=== PATIENT | male | born 1960 | race Caucasian/White ===

== ENCOUNTER 2017-10-26 09:08 | Day surgery (SDC) | payer BC ==
[2017-10-24 18:04] VITALS: BMI 28.0
[~2017-10-26 09:08] MED LIST: LACTATED RINGERS 1,000 ML IV SCH
[2017-10-26] MEDS ORDERED: LIDOCAINE 1% 20 ML VIAL (10MG/ML) FOR IV START INTRADERMA ONE (10:10)
[2017-10-26 10:15] VITALS: RESP 16; TEMP 97.5
[2017-10-26] MEDS ORDERED: PROPOFOL 10 MG/ML 20 ML VIAL IV ONE (10:45)
--- NOTE | 2017-10-26 11:19 | P.PCN ---
Date of Procedure: 10/26/17 Procedure(s) Performed: BRIEF HISTORY: Patient is a 57-year-old pleasant white male, scheduled for an elective colonoscopy as a part of screening for colon neoplasia. PROCEDURE PERFORMED: Colonoscopy with snare polypectomy PREOPERATIVE DIAGNOSIS: Screening for colon cancer. IV sedation per Anesthesia. PROCEDURE: After informed consent was obtained, the patient, was brought into the endoscopy unit. IV sedation was administered by Anesthesia under continuous monitoring. Digital rectal examination was normal. Initially the Olympus CF- 160 flexible video colonoscope was then inserted in the rectum, gradually advanced into the cecum without any difficulty. Careful examination was performed as the scope was gradually being withdrawn. Ileocecal valve and the appendiceal orifice were visualized and appeared normal. Prep was fair. Mucosa of the cecum, ascending colon, appeared normal. In the hepatic flexure there was a 5 m polyp removed by snare polypectomy. The transverse colon, descending colon, sigmoid colon, and rectum appeared normal. In the proximal rectum there were 2 polyps measuring 5 m in size both of which were removed by snare polypectomy. Scattered sigmoid diverticulosis Retroflexion was performed in the rectum and no lesions were seen. The patient tolerated the procedure well. IMPRESSION: 5 mm hepatic flexure polyp status post polypectomy 5 mm 2 rectal polyps status post polypectomy Scattered sigmoid diverticulosis RECOMMENDATIONS: Findings of this examination were discussed with the patient as well as his family. He was advised to follow with the biopsy results. If the biopsy shows a tubular adenoma, he can have a repeat colonoscopy in 3-5 years.
[2017-10-26] MEDS ORDERED: IV FLUID CONTINUATION 1,000 ML IV ONE (11:21)
[2017-10-26 11:46] VITALS: BP 104/68; PULSE 64
== END 2017-10-26 12:04 | disposition home or self-care (01) ==
LOC: ORWHC2ENDO 09:08
PROVIDERS: ATTEND Internal Medicine Gastroenterology
DX: Z12.11 Encounter for screening for malignant neoplasm of colon (principal); D12.3 Benign neoplasm of transverse colon; K62.1 Rectal polyp; K57.30 Diverticulosis of large intestine without perforation or abscess without bleeding; E78.5 Hyperlipidemia, unspecified; Z79.899 Other long term (current) drug therapy
CPT/HCPCS: 88305; 45385; J2704

== ENCOUNTER → 2018-05-20 | Outpatient (CLI) | payer BC ==
--- NOTE | 2018-05-21 09:17 | ECHOF ---
Referral Reason:R01.1 cystolic murmur MEASUREMENTS -------- HEIGHT: 175.3 cm WEIGHT: 82.6 kg BP: RVIDd: 3.1 cm (< 3.3) IVSd: 1.2 cm (0.6 - 1.1) LVIDd: 5.4 cm (3.9 - 5.3) LVPWd: 1.1 cm (0.6 - 1.1) IVSs: 1.8 cm LVIDs: 3.4 cm LVPWs: 1.8 cm LAESV Index (A-L): 27.65 ml/m Ao Diam: 4.0 cm (2.0 - 3.7) AV Cusp: 2.4 cm (1.5 - 2.6) LA Diam: 3.2 cm (2.7 - 3.8) MV EXCURSION: 13.189 mm (> 18.000) MV EF SLOPE: 48 mm/s (70 - 150) EPSS: 0.4 cm MV E Lopez: 0.95 m/s MV DecT: 228 ms MV A Lopez: 0.83 m/s MV E/A Ratio: 1.14 RAP: 5.00 mmHg RVSP: 21.90 mmHg FINDINGS -------- Sinus rhythm. This was a technically good study. The left ventricular size is normal. There is mild concentric left ventricular hypertrophy. Overa ll left ventricular systolic function is normal with, an EF between 55 - 60 %. The right ventricle is mildly enlarged. Normal LA size by volume 22+/-6 ml/m2. The right atrium is normal in size. The aortic valve is trileaflet, and appears structurally normal. No aortic stenosis or regurgitation. Mild mitral annular calcification present. Severe mitral regurgitation is present. Severe prolaps e/partial flail of the posterior mitral valve leaflet. Mild tricuspid regurgitation present. Right ventricular systolic pressure is normal at < 35 mmHg. There is no evidence of pulmonary hypertension. Trace/mild (physiologic) pulmonic regurgitation. The aortic root is mildy dilated up to 4.1 cm. Normal inferior vena cava with normal inspiratory collapse consistent with estimated right atrial pre ssure of 5 mmHg. There is no pericardial effusion. CONCLUSIONS -------- 1. Sinus rhythm. 2. This was a technically good study. 3. The left ventricular size is normal. 4. There is mild concentric left ventricular hypertrophy. 5. Overall left ventricular systolic function is normal with, an EF between 55 - 60 %. 6. The right ventricle is mildly enlarged. 7. Normal LA size by volume 22+/-6 ml/m2. 8. The aortic valve is trileaflet, and appears structurally normal. No aortic stenosis or regurgitati on. 9. Mild mitral annular calcification present. 10. Severe mitral regurgitation is present. 11. Severe prolapse/partial flail of the posterior mitral valve leaflet. 12. Mild tricuspid regurgitation present. 13. Right ventricular systolic pressure is normal at < 35 mmHg. 14. There is no evidence of pulmonary hypertension. 15. Trace/mild (physiologic) pulmonic regurgitation. 16. The aortic root is mildy dilated up to 4.1 cm. 17. There is no pericardial effusion. MINE ENGINEERING SUPERINTENDENT: Stanley Eason RDCS
== END | disposition home or self-care (01) ==
LOC: RADECHMAIN 15:50
PROVIDERS: ATTEND Family Medicine
DX: I08.1 Rheumatic disorders of both mitral and tricuspid valves (principal)
CPT/HCPCS: 93306

== ENCOUNTER → 2018-08-05 | Outpatient (CLI) | payer BC ==
[2018-08-05 10:29] LABS: Anion Gap 11 mmol/L; Blood Urea Nitrogen 12 mg/dL (9-20); Carbon Dioxide 24 mmol/L (22-30); Chloride 106 mmol/L (98-107); HGB 16.6 gm/dL (13.0-17.5); MCH 31.5 pg (25.0-35.0); MCHC 33.2 g/dL (31.0-37.0); MCV 94.9 fL (80.0-100.0); Mean Platelet Volume 6.5; Platelet Count 216 k/uL (150-450); Potassium 4.3 mmol/L (3.5-5.1); RBC 5.27 m/uL (4.30-5.90); Sodium 141 mmol/L (137-145); WBC 6.5 k/uL (3.8-10.6)
== END | disposition home or self-care (01) ==
LOC: LABPAT 09:46
PROVIDERS: ATTEND Internal Medicine Interventional Cardiology
DX: Z01.812 Encounter for preprocedural laboratory examination (principal); I35.1 Nonrheumatic aortic (valve) insufficiency
CPT/HCPCS: 36415; 80051; 82565; 84520; 85027

== ENCOUNTER 2018-08-15 06:12 | Day surgery (SDC) | payer BC ==
[2018-08-13 14:11] VITALS: BMI 28.0
[2018-08-15] MEDS ORDERED: NITROGLYCERIN SL TABS 0.4 MG TAB SUBLINGUAL PRN (06:23)
[2018-08-15] MEDS ORDERED: ASPIRIN 325 MG TAB PO STA (06:23)
[2018-08-15] MEDS ORDERED: SODIUM CHLORIDE 0.9% 1,000 ML in EMPTY BAG 1 BAG IV ONE (06:23)
[2018-08-15] MEDS ORDERED: ATORVASTATIN 80 MG TAB PO STA (06:23)
[2018-08-15] MEDS ORDERED: ALPRAZolam 0.25 MG TAB PO PRN (06:23)
[2018-08-15] MEDS ORDERED: ALPRAZolam 0.5 MG TAB PO PRN (06:23)
[2018-08-15] MEDS ORDERED: SODIUM CHLORIDE 0.9% 1,000 ML IV ONE (07:05)
[2018-08-15 07:08] VITALS: RESP 16; TEMP 98.6
[2018-08-15] MEDS ORDERED: BENZOCAINE SPRAY 1 CAN MUCOUS MEM ONE ×2 (07:25)
[2018-08-15] MEDS: fentaNYL (PF) 50 MCG/ML 2 ML AMP IV ONE ×2 (07:38→07:44)
[2018-08-15] MEDS: MIDAZOLAM 2 MG/2 ML VIAL IV ONE ×2 (07:38→07:44)
[2018-08-15] MEDS ORDERED: MIDAZOLAM 2 MG/2 ML VIAL ONE (07:47)
[2018-08-15] MEDS ORDERED: MIDAZOLAM 2 MG/2 ML VIAL IV ONE (07:49)
[2018-08-15] MEDS ORDERED: IV FLUID CONTINUATION 1,000 ML IV ONE (08:19)
--- NOTE | 2018-08-15 08:23 | ECHOT ---
TRANSESOPHAGEAL ECHOCARDIOGRAM DATE OF SERVICE: August 15, 2018 PERFORMING PHYSICIAN: Clemente Germain MD. PROCEDURE PERFORMED: Transesophageal echocardiogram. INDICATION: This is a pleasant 58-year-old gentleman who underwent recently a transthoracic echocardiogram for a heart murmur and that revealed severe MR. A transesophageal echocardiogram for better evaluation of the mitral valve severity and mitral valve apparatus. COMPLICATION: None. LEVEL OF SEDATION: Moderate with sedation length of 10 minutes. PROCEDURE DESCRIPTION: After obtaining an informed consent, explaining the procedure, benefits, risks, complications and alternatives, the patient was brought to the transesophageal echocardiogram suite. A pulse oximetry and heart rate monitors were attached to the patient prior to the procedure. The patient's throat was sprayed using lidocaine locally. Following that, the patient was turned into left lateral position. A bite guard was placed and the patient was then sedated with the above doses of Versed and fentanyl in divided doses. Following that, the transesophageal echocardiogram probe was advanced through the bite guard into the mid esophagus where 2-D echocardiogram images as well as color Doppler images of various cardiac structures were obtained. We evaluated the interatrial septum using 2-D echocardiogram, color Doppler, and contrast study. The procedure was completed. There were no complications. FINDINGS: The left ventricular dimension and systolic function appeared to be within normal limits. The ejection fraction is about 55% to 60%. The right ventricle is enlarged mildly. The aortic valve is trileaflet valve without stenosis and without regurgitation. The mitral valve appeared to be thickened with evidence of prolapsing of the P2 component of the posterior mitral leaflet with evidence of severe MR with anteriorly directed jet and wide-based MR. The tricuspid valve and pulmonic valve appeared to be within normal limits. The aortic root appeared to be dilated and measured 4.2 cm. CONCLUSION: 1. Prolapsing of the P2 component of the posterior mitral leaflet with evidence of severe mitral regurgitation with a wide-based MR and anteriorly directed jet. 2. The left ventricular ejection fraction appeared to be in the range of 55% to 60%. 3. Trileaflet aortic valve without stenosis or regurgitation. 4. Dilated aortic root. The aortic root was measured at 4.2 cm at the level of sinus of Valsalva. 5. Normal tricuspid valve and pulmonic valve. 6. Intact interatrial septum without any evidence of shunt. 7. No evidence of pericardial effusion. MMODL / IJN: [id number] /
[2018-08-15] MEDS ORDERED: LIDOCAINE 1% INJ 10MG/ML (20 ML MDV) SQ ONE (08:29)
[2018-08-15] MEDS: VERAPAMIL SYRINGE (5 MG/10 ML) INTRAARTER ONE ×2 (08:31→08:41)
[2018-08-15] MEDS ORDERED: HEPARIN SODIUM 1,000 UN/ML (10ML VL) IV ONE (08:32)
[2018-08-15] MEDS ORDERED: IOPAMIDOL-370 125ML BTL INJ ONE (08:40)
[2018-08-15] MEDS ORDERED: SODIUM CHLORIDE 0.9% 1,000 ML IV SCH (09:00)
--- NOTE | 2018-08-15 09:08 | CC ---
CARDIAC CATHETERIZATION REPORT DATE OF SERVICE: August 15, 2018 PERFORMING PHYSICIAN: Clemente Germain MD, slubber frame changer. PROCEDURE PERFORMED: 1. Selective right and left coronary angiogram. 2. Left heart catheterization. 3. Left ventriculography. INDICATION: This is a pleasant 58-year-old gentleman who was diagnosed recently with severe MR, which was confirmed by transesophageal echocardiogram. The patient was seen by a surgeon and he is scheduled to undergo mitral valve repair. The heart catheterization is to assess for any severe underlying coronary artery disease. APPROACH: Right radial artery. COMPLICATION: None. LEVEL OF SEDATION: Moderate with sedation length of 15 minutes. PROCEDURE DESCRIPTION: After obtaining an informed consent, the patient was brought to cardiac lab animal technician. The right radial artery was cannulated using micropuncture technique and a micropuncture wire passed easily then I placed a 5-[place] sheath in the right radial artery. After that, I did perform selective right and left coronary angiogram using JR4 and JL3.5 catheters. Left heart catheterization was performed using 5-[place] pigtail catheter. The left ventriculography was also performed using the pigtail catheter. The procedure was completed without any complication. SELECTIVE CORONARY ANGIOGRAM: 1. The right coronary artery is a large caliber vessel. It is a dominant vessel. It is angiographically normal. It distally bifurcates into PDA and PLV branches both are angiographically normal. 2. Left main is angiographically normal. It bifurcates into left circumflex and left anterior descending artery. 3. The left circumflex is a large caliber vessel. It is a nondominant vessel. The proximal circumflex is normal. The mid circumflex is normal and gives rise into a large OM branch which appeared to be angiographically normal. The circumflex distally is normal as well. 4. The LAD: The proximal LAD has a plaque appeared to be in the range of 30% only. This is by the bifurcation of a large diagonal branch which appeared to be angiographically normal. The mid LAD appeared to have mild disease only as well and this is by the bifurcation of second diagonal branch which appeared to be angiographically normal. The LAD distally is normal as well. HEMODYNAMICS: The left ventricular end-diastolic pressure was 8 mmHg and without significant gradient across the aortic valve. LEFT VENTRICULOGRAPHY: Left ventriculography was performed in the TAI projection and using a power injection. The left ventricular systolic function is about 60% with 3 to 4+ MR. CONCLUSION: 1. Mild nonobstructive coronary artery disease involving the left anterior descending artery. 2. Normal left ventricular end-diastolic pressure. 3. Normal left ventricular systolic function. 4. A 3 to 4+ mitral regurgitation. MMODL / IJN: [id number] /
--- NOTE | 2018-08-15 09:14 | LTR ---
August 15, 2018 Re: Marcello Solomon Dear Dr. Oswald: Mr. Marcello Solomon underwent a transesophageal echocardiogram as well as a heart catheterization today. The transesophageal echocardiogram revealed severe mitral regurgitation. The heart catheterization revealed mild nonobstructive coronary artery disease. Having stated that, the patient was seen and evaluated already by Dr. Ward and he will be scheduled to have a mitral valve repair. I want to thank you for allowing me to participate in his care and please do not hesitate to call for any question or concern. Sincerely, Clemente Germain MD [email or web address] / LUISN: [id number] /
[2018-08-15 14:43] VITALS: BP 139/76; PULSE 60
== END 2018-08-15 13:17 | disposition home or self-care (01) ==
LOC: CATHCVL 06:12
PROVIDERS: ATTEND Internal Medicine Interventional Cardiology
DX: I34.0 Nonrheumatic mitral (valve) insufficiency (principal); I25.10 Atherosclerotic heart disease of native coronary artery without angina pectoris; Z87.891 Personal history of nicotine dependence; E78.5 Hyperlipidemia, unspecified; E78.00 Pure hypercholesterolemia, unspecified; Z82.49 Family history of ischemic heart disease and other diseases of the circulatory system; Z79.899 Other long term (current) drug therapy
CPT/HCPCS: 93312; 93320; 93325; 93458; C1894 ×2; C1769; J2250; J2001; J3010; J1644; Q9967

== ENCOUNTER → 2018-09-26 | Outpatient (CLI) | payer BC ==
[2018-09-26 09:52] LABS: HCT 47.2 % (39.0-53.0); HGB 15.6 gm/dL (13.0-17.5); MCH 31.4 pg (25.0-35.0); MCHC 33.1 g/dL (31.0-37.0); MCV 94.8 fL (80.0-100.0); Mean Platelet Volume 6.7; Platelet Count 197 k/uL (150-450); RBC 4.98 m/uL (4.30-5.90); RDW 13.2 % (11.5-15.5); WBC 4.6 k/uL (3.8-10.6)
[2018-09-26 10:03] LABS: Appearance,Urine Clear (Clear); Bilirubin,Urine Negative (Negative); Blood,Urine Negative (Negative); Color,Urine Light Yellow; Glucose,Urine (UA) Negative (Negative); Ketones,Urine Negative (Negative); Leukocyte Esterase,Urine Negative (Negative); Nitrite,Urine Negative (Negative); PH, Urine 6.5 (5.0-8.0); Protein,Urine Negative (Negative); Specific Gravity,Urine 1.005 (1.001-1.035); Urobilinogen,Urine <2.0 mg/dL (<2.0)
--- NOTE | 2018-09-26 10:03 | P.PN ---
Progress Note - Text Progress Note Date: 09/26/18 5 meter walk test completed 09/26/18: #1 3.85 sec #2 3.46 sec #3 2.75 sec
[2018-09-26 10:08] LABS: INR 0.9 (<1.2); Partial Thromboplastin Time 26.1 sec (22.0-30.0); Prothrombin Time 10.1 sec (9.0-12.0)
[2018-09-26 10:13] LABS: ALT 107 U/L (21-72); AST 43 U/L (17-59); Albumin 4.8 g/dL (3.5-5.0); Alkaline Phosphatase 90 U/L (38-126); Anion Gap 8 mmol/L; Blood Urea Nitrogen 15 mg/dL (9-20); Calcium 9.8 mg/dL (8.4-10.2); Carbon Dioxide 27 mmol/L (22-30); Chloride 107 mmol/L (98-107); Cholesterol 173 mg/dL (<200); Glucose 105 mg/dL (74-99); HDL Cholesterol 35 mg/dL (40-60); LDL Cholesterol,Calculated 112 mg/dL (0-99); Magnesium 2.3 mg/dL (1.6-2.3); Sodium 142 mmol/L (137-145); Total Bilirubin 0.9 mg/dL (0.2-1.3); Total Protein 7.6 g/dL (6.3-8.2); Triglycerides 131 mg/dL (<150)
--- NOTE | 2018-09-26 12:42 | US ---
EXAMINATION TYPE: US carotid duplex BILAT DATE OF EXAM: 09/26/2018 COMPARISON: NONE CLINICAL HISTORY: OPEN HEART. Pre-Op EXAM MEASUREMENTS: RIGHT: Peak Systolic Velocity (PSV) cm/sec ----- Right CCA: 64.0 ----- Right ICA: 83.7 ----- Right ECA: 97.9 ICA/CCA ratio: 1.3 RIGHT: End Diastole cm/sec ----- Right CCA: 28.0 ----- Right ICA: 26.7 ----- Right ECA: 28.0 LEFT: Peak Systolic Velocity (PSV) cm/sec ----- Left CCA: 93.5 ----- Left ICA: 72.1 ----- Left ECA: 59.9 ICA/CCA ratio: 0.8 LEFT: End Diastole cm/sec ----- Left CCA: 37.6 ----- Left ICA: 36.3 ----- Left ECA: 18.0 VERTEBRALS (direction of flow): Right Vertebral: Antegrade Left Vertebral: Antegrade Rhythm: Normal Grayscale, color Doppler, spectral Doppler imaging performed of the carotid arteries. Mild atheroscle rotic changes. No increased velocities. Tortuous vessels bilaterally. Waveform analysis does not show significant stenosis. IMPRESSION: No hemodynamic significant stenosis of the proximal internal carotid arteries bilaterall y by Doppler criteria, an indirect measurement of carotid stenosis
[2018-09-26 18:18] LABS: Hepatitis A Antibody IgM Non-Reactive (Non-Reactive); Hepatitis B Core IgM Non-Reactive (Non-Reactive)
[2018-09-26 18:33] LABS: Hemoglobin A1C 5.3 % (4.0-6.0)
--- NOTE | 2018-10-02 09:24 | P.VSCSTY ---
Greater Saphenous Vein Mapping This is bilateral lower extremity greater saphenous vein mapping. Date of service 09/26/2018 Vein quality and ultrasound appearance we see no wall changes or intraluminal thrombus. Vein size groin right 5.5 x 5.7 groin left 7.1 x 7.6 High thigh right 5.4 x 5.6 high thigh left 3.8 x 4.5 Mid thigh right 3.3 x 3.5 mid thigh left 3.8 x 4.5 Above-knee right 3.6 x 4.6 above- knee left 3.2 x 3.5 Below knee right 3.2 x 3.6 below-knee left 2.5 x 2.6 Mid calf right 3.2 x 3.0 mid calf left 2.9 x 4.1 Ankle right 3.8 x 4.5 ankle left 3.1 x 3.8 Impression usable bilateral greater saphenous vein.
== END | disposition home or self-care (01) ==
LOC: LABPAT 08:26
PROVIDERS: ATTEND Surgery
DX: Z01.818 Encounter for other preprocedural examination (principal); E78.5 Hyperlipidemia, unspecified; Z79.01 Long term (current) use of anticoagulants
CPT/HCPCS: 36415; 80053; 80061; 80074; 81003; 83036; 83735; 84443; 85027; 85610; 85730; 87070; 87086; 93005; 93880; 93970

== ENCOUNTER 2018-10-01 05:26 | Inpatient (IN) | payer BC ==
[~2018-10-01 05:26] MED LIST changes: +ALBUMIN HUMAN 25% 50 ML IV ONE; +ASPIRIN 325 MG TAB PO ONE; +ATORVASTATIN 10 MG TAB PO ONE; +CALCIUM CHLORIDE 100 MG/ML 10 ML SYRINGE IV ONE; +CHLORHEXIDINE GLUCONATE 15 ML CUP MUCOUS MEM ONE; +CLEVIDIPINE BUTYRATE 25 MG in EMPTY BAG 1 BAG IV ONE; +DEXTROSE 5% IN WATER 1,000 ML with POTASSIUM CHLORIDE 110 MEQ, MAGNESIUM SULFATE 16 MEQ... IV ONE; +DEXTROSE 5% IN WATER 1,000 ML with POTASSIUM CHLORIDE 25 MEQ, SODIUM CHLORIDE 2.5MEQ/ML... IRRIGATION ONE; +HEPARIN SODIUM 1,000 UN/ML (10ML VL) IV ONE; +HEPARIN SODIUM,PORCINE 5,000 UNIT in SODIUM CHLORIDE 0.9% 500 ML 500 ML IV ONE; +INSULIN REGULAR 100 UNIT in SODIUM CHLORIDE 0.9% 100 ML IV ONE; +LACTATED RINGERS 1,000 ML IV ONE; -LACTATED RINGERS 1,000 ML IV SCH; +MAGNESIUM SULFATE MG 500 MG/ML IV ONE; +MANNITOL 25% 12.5 GM/50 ML VIAL IV ONE; +METOPROLOL TARTRATE 12.5 MG TAB PO ONE; +NITROGLYCERIN-D5W PMX 25 MG/250 ML BTL IV ONE; +NITROGLYCERIN-D5W PMX 50 MG in DEXTROSE/WATER 1 250ML.BAG IV ONE; +NOREPINEPHRINE 4 MG in SODIUM CHLORIDE 0.9% 250 ML IV ONE; +PHENYLEPHRINE 40 MG in SODIUM CHLORIDE 0.9% 250 ML IV ONE; +PHENYLEPHRINE-0.9% NACL SYG 1 MG/10 ML SYRINGE IV ONE; +PROPOFOL 1,000 MG/100 ML VIAL IV ONE; +PROTAMINE SULFATE 10 MG/ML 25 ML VIAL IV ONE; +PROTAMINE SULFATE 250 MG in EMPTY BAG 1 BAG IV ONE; +SODIUM BICARB 8.4% 50 ML SYR (1 MEQ/ML) IV ONE; +SODIUM CHLORIDE 0.9% 1,000 ML IV ONE; +TRANEXAMIC ACID 2,000 MG in SODIUM CHLORIDE 0.9% 180 ML IV ONE; +ceFAZolin 1,000 MG in SODIUM CHLORIDE 0.9% IRRIGATIO 1,000 ML IRRIGATION ONE; +ceFAZolin 2,000 MG in SODIUM CHLORIDE 0.9% 30 ML IVPB ONE
[2018-10-01] MEDS ORDERED: MAGNESIUM SULFATE 4 MEQ/ML 10ML VIAL ONE (07:44)
[2018-10-01] MEDS ORDERED: PHENYLEPHRINE-0.9% NACL SYG 1 MG/10 ML SYRINGE ONE (07:44)
[2018-10-01] MEDS ORDERED: LACTATED RINGERS 1,000 ML BAG IV ONE (07:44)
[2018-10-01] MEDS ORDERED: LIDOCAINE 1% INJ 10MG/ML (20 ML MDV) ONE (07:44)
[2018-10-01] MEDS ORDERED: ALBUMIN HUMAN 5% 500 ML VIAL IVPB ONE (07:44)
[2018-10-01] MEDS ORDERED: ePHEDrine SULFATE/0.9% NACL/PF 50 MG/5 ML SYRINGE IV ONE (07:44)
[2018-10-01] MEDS ORDERED: PROPOFOL 10 MG/ML 20 ML VIAL IV ONE (07:44)
[2018-10-01] MEDS ORDERED: fentaNYL (PF) 50 MCG/ML 2 ML AMP ONE (07:44)
[2018-10-01] MEDS ORDERED: HEPARIN SODIUM,PORCINE 5,000 UNIT/ML 1 ML VIAL ONE (07:44)
[2018-10-01] MEDS ORDERED: TRANEXAMIC ACID 1,000 MG/10 ML VIAL ONE (07:44)
[2018-10-01] MEDS ORDERED: ELECTROLYTE-R (PH 7.4) 1,000 ML IV.SOLN IV ONE (07:44)
[2018-10-01] MEDS ORDERED: SODIUM CHLORIDE 0.9% 250 ML BAG ONE (07:44)
[2018-10-01] MEDS ORDERED: fentaNYL (PF) 50 MCG/ML 50 ML VIAL ONE (07:44)
[2018-10-01] MEDS ORDERED: SODIUM BICARB 8.4% 50 ML SYR (1 MEQ/ML) ONE (07:44)
[2018-10-01] MEDS ORDERED: VECURONIUM 10 MG VIAL IV ONE (07:44)
[2018-10-01] MEDS ORDERED: PROTAMINE SULFATE 10 MG/ML 25 ML VIAL IV ONE (07:44)
[2018-10-01] MEDS ORDERED: HEPARIN SODIUM,PORCINE 10,000 UNIT/ML 1 ML VIAL ONE (07:44)
[2018-10-01] MEDS ORDERED: MIDAZOLAM 2 MG/2 ML VIAL ONE (07:44)
[2018-10-01 08:44] LABS: ABG Base Excess -0.8 mmol/L; ABG HCO3 25 mmol/L (21-25); ABG Oxygen Saturation 98.4 % (94-97); ABG PCO2 42 mmHg (35-45); ABG PH 7.38 (7.35-7.45); ABG PO2 111 mmHg (83-108); ABG Potassium Whole Blood 4.2 mmol/L (3.4-4.5); ABG Sodium Whole Blood 140 mmol/L (135-146); ABG TCO2 26 mmol/L (19-24)
[2018-10-01 09:37] LABS: ABG Base Excess -1.6 mmol/L; ABG HCO3 24 mmol/L (21-25); ABG Oxygen Saturation 99.4 % (94-97); ABG PCO2 41 mmHg (35-45); ABG PH 7.37 (7.35-7.45); ABG PO2 147 mmHg (83-108); ABG Sodium Whole Blood 138 mmol/L (135-146); ABG TCO2 25 mmol/L (19-24)
[2018-10-01] MEDS ORDERED: SODIUM CHLORIDE 0.9% 500 ML 500 ML with HEPARIN SODIUM,PORCINE 5,000 UNIT IV ONE ×2 (09:40)
[2018-10-01] MEDS ORDERED: ceFAZolin 1,000 MG in SODIUM CHLORIDE 0.9% 1,000 ML IRRIGATION ONE (09:41)
[2018-10-01 10:09] LABS: ABG Base Excess -2.2 mmol/L; ABG HCO3 23 mmol/L (21-25); ABG PCO2 38 mmHg (35-45); ABG PH 7.38 (7.35-7.45); ABG Sodium Whole Blood 139 mmol/L (135-146); ABG TCO2 24 mmol/L (19-24)
[2018-10-01 10:42] LABS: ABG Base Excess -2.2 mmol/L; ABG HCO3 23 mmol/L (21-25); ABG PCO2 42 mmHg (35-45); ABG PH 7.35 (7.35-7.45); ABG PO2 261 mmHg (83-108); ABG Potassium Whole Blood 4.6 mmol/L (3.4-4.5); ABG Sodium Whole Blood 135 mmol/L (135-146); ABG TCO2 25 mmol/L (19-24)
[2018-10-01 11:10] LABS: ABG Base Excess -2.6 mmol/L; ABG HCO3 23 mmol/L (21-25); ABG PCO2 44 mmHg (35-45); ABG PH 7.34 (7.35-7.45); ABG PO2 406 mmHg (83-108); ABG Potassium Whole Blood 4.9 mmol/L (3.4-4.5); ABG Sodium Whole Blood 135 mmol/L (135-146); ABG TCO2 25 mmol/L (19-24)
[2018-10-01 12:04] LABS: ABG PO2 >420 mmHg (83-108); ABG Potassium Whole Blood 4.5 mmol/L (3.4-4.5)
[2018-10-01 12:07] LABS: ABG Base Excess -2.9 mmol/L; ABG HCO3 23 mmol/L (21-25); ABG Oxygen Saturation 99.3 % (94-97); ABG PCO2 44 mmHg (35-45); ABG PH 7.33 (7.35-7.45); ABG PO2 139 mmHg (83-108); ABG Sodium Whole Blood 138 mmol/L (135-146); ABG TCO2 24 mmol/L (19-24)
[2018-10-01] MEDS ORDERED: CALCIUM CHLORIDE 1,000 MG in SODIUM CHLORIDE 0.9% 100 ML IV PRN (13:11)
[2018-10-01] MEDS ORDERED: AMIODARONE 450 MG in DEXTROSE 5% IN WATER 250 ML IV PRN ×2 (13:11)
[2018-10-01] MEDS ORDERED: IPRATROPIUM-ALBUTEROL 3 ML NEB INHALATION PRN (13:11)
[2018-10-01] MEDS ORDERED: BENZOCAINE/MENTHOL LOZENG 1 EACH LOZENGE MUCOUS MEM PRN (13:11)
[2018-10-01] MEDS ORDERED: ONDANSETRON 4 MG/2 ML VIAL IVP PRN (13:11)
[2018-10-01] MEDS ORDERED: PROPOFOL 1,000 MG in EMPTY BAG 1 BAG IV SCH (13:11)
[2018-10-01] MEDS ORDERED: Phosphorus Replacement Protoco 1 EACH MISC MISCELLANE PRN (13:11)
[2018-10-01] MEDS ORDERED: DEXTROSE 5% IN WATER 100 ML with AMIODARONE 150 MG IV PRN (13:11)
[2018-10-01] MEDS ORDERED: METOCLOPRAMIDE 5 MG/ML 2 ML VIAL IVP PRN (13:11)
[2018-10-01] MEDS ORDERED: Magnesium Replacement Protocol 1 EACH MISC MISCELLANE PRN (13:11)
[2018-10-01] MEDS ORDERED: MORPHINE SULFATE 2 MG/ML SYRINGE IVP PRN (13:11)
[2018-10-01] MEDS ORDERED: Potassium Replacement Protocol 1 EACH MISC MISCELLANE PRN (13:11)
[2018-10-01 13:41] LABS: Glucose,Whole Blood 131 mg/dL (75-99)
[2018-10-01 13:48] LABS: ABG Base Excess 0.1 mmol/L; ABG HCO3 26 mmol/L (21-25); ABG Oxygen Saturation 99.9 % (94-97); ABG PCO2 50 mmHg (35-45); ABG PH 7.33 (7.35-7.45); ABG PO2 256 mmHg (83-108); ABG TCO2 28 mmol/L (19-24)
[2018-10-01] MEDS: LACTATED RINGERS 1,000 ML IV SCH (13:55)
[2018-10-01] MEDS: INSULIN REGULAR 100 UNIT in SODIUM CHLORIDE 0.9% 100 ML IV SCH (13:56)
[2018-10-01 13:59] LABS: Basophils % (A) 0 %; Eosinophils # (A) 0.1 k/uL (0-0.7); Eosinophils % (A) 1 %; HCT 34.5 % (39.0-53.0); INR 1.1 (<1.2); Lymphocytes # (A) 0.8 k/uL (1.0-4.8); Lymphocytes % (A) 11 %; MCH 31.6 pg (25.0-35.0); MCHC 33.5 g/dL (31.0-37.0); MCV 94.3 fL (80.0-100.0); Mean Platelet Volume 6.5; Monocytes # (A) 0.3 k/uL (0-1.0); Monocytes % (A) 4 %; Neutrophils # (A) 5.8 k/uL (1.3-7.7); Neutrophils % (A) 84 %; Platelet Count 123 k/uL (150-450); Prothrombin Time 11.7 sec (9.0-12.0); RBC 3.65 m/uL (4.30-5.90); RDW 13.4 % (11.5-15.5)
--- NOTE | 2018-10-01 13:59 | P.CNPUL ---
History of Present Illness Consult date: 10/01/18 Requesting physician: Ochoa Ward Reason for consult: other (Mechanical ventilator and critical care management) Chief complaint: Severe mitral valve regurgitation from prolapse/flail of the posterior leaf History of present illness: This is a 58-year-old gentleman who follows with Dr. Oswald as his primary care physician. He has a history of hyperlipidemia and chronic and ongoing tobacco dependence at 1 pack per day. He was found to have a systolic ejection murmur on his screening exam and was referred for two-dimensional echocardiogram. He had one back on 05/20/2018 that showed evidence of preserved left ventricular systolic function, severe mitral valve regurgitation from posterior leaflet prolapse/flail. The patient had been asymptomatic at that time. No dyspnea on exertion, palpitations or chest pain. FELIZ August 15 2018 confirmed severe mitral regurgitation secondary to the prolapsing posterior mitral leaflet. Preserved left ventricular systolic function of 55-60 %. Cardiac catheterization revealed nonobstructive coronary artery disease. He was admitted early this morning for an elective mitral valve repair which was performed by Dr. Ward. He is seen today in the ICU immediately postoperatively. He remains intubated and on the mechanical ventilator to SIMV mode of 12, volume 550, FiO2 100% and a PEEP of 5. Is currently on propofol at 40 mcg/kg/m. Initially on norepinephrine currently on hold. Systolic blood pressure in the 110's with a diastolic pressure in the 60s. Mean arterial pressure greater than 60. PA pressure 34/12. Cardiac output 6. Cardiac index 3.1. Split mediastinal and right pleural chest tubes are in place. Chest x- ray was reviewed with Dr. Worrell. Currently no significant abnormalities. Right IJ Hardwick-Brian catheter in place. Temporary pacemaker wires in place. Glucose 131. Other labs pending. 2 units of packed red blood cells are pending. 2 units of platelets available. Review of Systems ROS unobtainable: due to endotracheal tube Past Medical History Past Medical History: Hyperlipidemia Additional Past Medical History / Comment(s): intermittent SOB,mitral valve regurgitation History of Any Multi-Drug Resistant Organisms: None Reported Past Surgical History: Appendectomy, Heart Catheterization, Tonsillectomy Additional Past Surgical History / Comment(s): LEFT HAND SURGERY, CYST EXC ON BACK Past Anesthesia/Blood Transfusion Reactions: No Reported Reaction Additional Past Anesthesia/Blood Transfusion Reaction / Comment(s): no hx blood transfusion Smoking Status: Former smoker - Past Family History Mother Family Medical History: Coronary Artery Disease (CAD) Father Family Medical History: Deep Vein Thrombosis (DVT) Medications and Allergies Home Medications Medication Instructions Recorded Confirmed Type Atorvastatin [Lipitor] 20 mg PO 1700 10/24/17 09/26/18 History Mupirocin 2% Oint [Bactroban 2% 1 applic NASAL BID 09/26/18 09/26/18 History Oint] Allergies Allergy/AdvReac Type Severity Reaction Status Date / Time No Known Allergies Allergy Verified 10/01/18 05:58 Physical Exam Vitals: Vital Signs Temp Pulse Resp BP BP Pulse Ox 10/01/18 06:08 16 147/96 10/01/18 06:07 98.3 F 102 H 16 135/98 97 Intake and Output 09/30/18 10/01/18 10/01/18 22:59 06:59 14:59 Intake Total 2 Output Total 1700 Balance -1698 Intake: IV 2 Output: Urine 500 Estimated Blood Loss 1200 Other: Weight 88.6 kg GENERAL EXAM: Intubated, sedated, comfortable in no apparent distress. HEAD: Normocephalic. EYES: Sluggish reaction of pupils, equal size. NOSE: Clear with pink turbinates. THROAT: Oral endotracheal and gastric tube secured in place. No erythema or exudates. NECK: No masses, no JVD. Right IJ Hardwick-Brian catheter. CHEST: Surgical dressing dry and intact. Split mediastinal and right pleural chest tubes in place. LUNGS: Equal air entry with no crackles, wheeze, rhonchi or dullness. CVS: S1 and S2 normal with no audible murmur, regular rhythm. ABDOMEN: No hepatosplenomegaly, hypoactive bowel sounds, no guarding or rigidity. SPINE: No scoliosis or deformity SKIN: No rashes CENTRAL NERVOUS SYSTEM: No focal deficits, tone is normal in all 4 extremities. EXTREMITIES: Left radial art line. There is no peripheral edema. No clubbing, no cyanosis. Peripheral pulses are intact. Jarek wraps to the lower extremities. Results - Laboratory Findings ABG ABG pH 7.33 (7.35-7.45) L 10/01/18 12:06 ABG pCO2 44 mmHg (35-45) 10/01/18 12:06 ABG pO2 139 mmHg (83-108) H 10/01/18 12:06 ABG O2 Saturation 99.3 % (94-97) H 10/01/18 12:06 Abnormal lab findings: Abnormal Labs 09/26/18 10/01/18 10/01/18 08:28 08:43 09:34 ABG pH ABG pO2 111 H 147 H ABG Total CO2 26 H 25 H ABG O2 Saturation 98.4 H 99.4 H ABG Hematocrit ABG Potassium ABG Ionized Calcium ABG Glucose 108 H 124 H ABG Lactic Acid 2.3 H* Hemoglobin 12.8 L Arterial Blood Potassium Arterial Blood Glucose 108 H 124 H Crossmatch See Detail 10/01/18 10/01/18 10/01/18 10:08 10:41 11:10 ABG pH 7.34 L ABG pO2 >420 H 261 H 406 H ABG Total CO2 25 H 25 H ABG O2 Saturation 100.0 H 100.0 H 100.0 H ABG Hematocrit 33 L ABG Potassium 4.6 H 4.9 H ABG Ionized Calcium 4.3 L 4.4 L 4.4 L ABG Glucose 132 H 183 H 206 H ABG Lactic Acid 1.7 H 1.7 H Hemoglobin 11.1 L 10.9 L 10.7 L Arterial Blood Potassium 4.6 H 4.9 H Arterial Blood Glucose 132 H 183 H 206 H Crossmatch 10/01/18 12:06 ABG pH 7.33 L ABG pO2 139 H ABG Total CO2 ABG O2 Saturation 99.3 H ABG Hematocrit ABG Potassium ABG Ionized Calcium ABG Glucose 163 H ABG Lactic Acid 2.6 H* Hemoglobin 11.3 L Arterial Blood Potassium Arterial Blood Glucose 163 H Crossmatch - Diagnostic Findings Chest x-ray: image reviewed Assessment and Plan Assessment: Impression: #1 Severe mitral regurgitation secondary to prolapsing of the P2 component of the posterior mitral leaflet. Status post mitral valve repair, postoperative day #0. #2 Nonobstructive coronary artery disease. #3 Hyperlipidemia. #4 Chronic and ongoing tobacco dependence. Plan: The patient was seen and evaluated by Dr. Worrell. Chest x-ray was reviewed. ABGs and labs are pending. He did increase the SIMV mode from 12 to 14. We will plan of the for early extubation protocol. We'll continue with bronchodilators. On extubation will encourage increased use the incentive spirometer and cough and deep breathing exercises. He'll also be educated regarding the importance of complete smoking cessation. A NicoDerm patch may need to be applied. Daily chest x-rays. We will continue to follow and make further recommendations based on his clinical status. I, the cosigning physician, performed a history & physical examination of the patient. Lungs sounds are clear anteriorly. Maintaining good O2 saturations in the 90s on chemical ventilator at 100% FiO2. I discussed the assessment and plan of care with my nurse practitioner, Jessica Chung. I attest to the above consultation as dictated by her. Time with Patient: Greater than 30
--- NOTE | 2018-10-01 14:00 | XR ---
EXAMINATION TYPE: XR chest 1V portable DATE OF EXAM: 10/01/2018 CLINICAL HISTORY: Post open cardiac surgery.. TECHNIQUE: Single AP portable supine view of the chest is obtained. COMPARISON: Chest x-ray from September 17, 2018 FINDINGS: There is new endotracheal tube with tip at mid clavicular level, approximately 6 cm above mag. There is new orogastric tube projecting below diaphragm but side port is just above diaphragm , recommend advancing. There is new right internal jugular [place]-Brian catheter with tip at expected le delfina of pulmonary outflow tract. There is new right-sided chest tube and mediastinal drainage catheter . Overlying sternal wires are new with new closure device over superior left heart. There is suspecte d new mitral valvular ring. Overlying epicardial pacer wires are noted. There is new mild cardiomegaly with patchy bibasilar atelectasis and/or infiltrate. No large pleural effusion or pneumothorax is seen bilaterally. No mediastinal shift is present. Osseous structures are intact. IMPRESSION: 1. New Tubes and lines as detailed above, consider advancing orogastric tube to get side port below d iaphragm. 2. New mild cardiomegaly with patchy bibasilar linear atelectasis and/or less likely infiltrate.
[2018-10-01 14:03] LABS: HGB 11.6 gm/dL (13.0-17.5)
[2018-10-01 14:06] LABS: Ionized Calcium 4.9 mg/dL (4.5-5.3)
[2018-10-01 14:18] LABS: ALT 75 U/L (21-72); AST 55 U/L (17-59); Albumin 2.8 g/dL (3.5-5.0); Alkaline Phosphatase 50 U/L (38-126); Anion Gap 4 mmol/L; Blood Urea Nitrogen 12 mg/dL (9-20); Calcium 8.1 mg/dL (8.4-10.2); Carbon Dioxide 25 mmol/L (22-30); Chloride 109 mmol/L (98-107); Glucose 117 mg/dL (74-99); Magnesium 2.4 mg/dL (1.6-2.3); Potassium 4.1 mmol/L (3.5-5.1); Sodium 138 mmol/L (137-145); Total Bilirubin 0.8 mg/dL (0.2-1.3); Total Protein 4.8 g/dL (6.3-8.2)
[2018-10-01] MEDS ORDERED: DEXMEDETOMIDINE/0.9% NACL(PMX) 400 MCG in EMPTY BAG 1 BAG IV SCH (14:31)
--- NOTE | 2018-10-01 14:48 | OP ---
OPERATIVE REPORT DATE OF PROCEDURE: 10/01/2018 SURGEON: Ochoa Ward MD LITHOGRAPHIC ETCHER: Adeel Blandon, Nurse practitioner, and ADDY Pérez. PREOPERATIVE DIAGNOSIS: Severe mitral valve regurgitation from P2 prolapse, hyperlipidemia. POSTOPERATIVE DIAGNOSIS: Severe mitral valve regurgitation from P2 prolapse, hyperlipidemia. PROCEDURE: 1. Complex mitral valve repair with triangular resection of P2 and posterior annuloplasty using a #30 AnnuloFlex posterior ring. 2. Excision of the left atrial appendage using a 40 mm AtriClip. 3. Intraoperative transesophageal echocardiogram and epiaortic scanning. INDICATION FOR SURGERY: Patient is a 58-year-old gentleman who was diagnosed with severe mitral valve regurgitation from prolapse off the middle scallop of the posterior mitral valve. He has preserved left ventricular function. Patient was given the option of elective repair. He understood the STS risks and agreed to proceed. DESCRIPTION OF THE PROCEDURE: Patient in supine position. Right internal jugular Hernandez-Brian catheter and right radial arterial line were placed. Patient had normal PA impression, good cardiac index. Subsequently, he was brought to the operating room where general endotracheal anesthesia was induced uneventfully. A Naranjo catheter was inserted. The chest, abdomen and both lower extremities were prepped and draped using ChloraPrep. Ioban was used to cover the skin. Transesophageal echocardiogram confirmed the preoperative finding of prolapse of the middle scallop of the posterior mitral leaflet with moderate to severe mitral valve regurgitation under unloaded condition. The tricuspid valve had no regurgitation. A midline sternotomy was performed and no bone wax was used. The right pleura was opened in this process and was drained with a 19-Colombian Kentrell drain. The Viry mitral valve retractor was used. The mediastinal fat was transected between 2 ties and epiaortic scanning revealed normal ascending aorta. Pericardium was opened in an inverted T-fashion and a pericardial cradle was created. FINDINGS: Included an elongated aorta mildly dilated and normal size heart. After systemic heparinization after placement of respective pledgeted pursestring aortic cannulation with a 21-Colombian soft flow cannula, direct superior vena cannulation with a right angle 28-Colombian venous cannula and IVC cannulation via the right atrial appendage with a 30-Colombian straight cannula was performed. Antegrade as well as retrograde cardioplegia catheter were placed. The inferior vena cava was encircled with a vessel loop. Cardiopulmonary bypass was initiated and with the heart empty and beating we excluded the left atrial appendage at its base by deploying at 44 0 mm AtriClip. The aorta was clamped and patient temperature was allowed to drift down to 34 degrees Celsius. Myocardial protection was achieved. An initial dose of antegrade cold blood cardioplegia followed by a dose of retrograde cold blood cardioplegia. All subsequent doses were given retrograde at 15 minutes intervals. The interatrial groove was developed and a standard transverse left atrial dinorah was performed. The Viry retractor helped in exposing the valve, which was deep. The atrium was not dilated. I started by placing a total of 10 nonpledgeted Tycron tool annuloplasty sutures from trigone to trigone posteriorly. That helped open up the valve for better analysis. There was an obvious discoloration and thickening with an elongated cord of the middle scallop of the posterior leaflet without ruptured cord. The anterior leaflet, P1 and P3 were all normal. 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 I proceeded at a triangular resection of the P2 scallop and reconstructed the posterior leaflet by approximating the remaining scallop using a running Prolene 4-0 starting from the free edge towards the anulus and in 2 layers. Subsequently, the anterior mitral valve surface was measured to 33 mm annular flex ring which was selected. Only the posterior part of it was used. The previously placed annuloplasty suture were passed symmetrically into the ring, which seated nicely. All the needles were cut and the suture tied using the core knot device. Testing of the valve before and after the ring showed excellent seal. With that, rewarming was started as we closed the atriotomy in 1 layer using Prolene 3-0 pledgeted on each corner. Before completing the atrial closure and as CO2 was flowing throughout that period of left-sided cavities exposure. de-airing maneuver were performed before totally closing the atriotomy. The patient was given warm blood and was given lidocaine and magnesium and de-airing maneuver were performed before unclamping the aorta. The patient required one single defibrillation to rate regained spontaneous sinus rhythm. After a period of reperfusion we are able to wean off cardioplegia bypass without the need of any inotropic or vasopressor support. FELIZ showed good de-airing and excellent functioning mitral valve with no regurgitation and no evidence of systolic anterior motion. With that test, then full dose protamine was given. Decannulation followed. The right atrial appendage site was reinforced with a running Prolene 4-0. The antegrade cardioplegia site also required another pledgeted Prolene 4-0. Two monopolar atrial pacing wires were affixed to the right atrial pursestrings. then 1 ventricular pacing wire bipolar was driven via the inferior aspect of the right ventricle. Two 19-Colombian Kentrell drain were placed, one substernally and one in the posterior pericardium. After ensuring adequate hemostasis and hemodynamic and after correct sponge, instrument, and needle count, the sternum was closed using 5 [id number] pineal cable after interposing fibular between the sternal edges. Thorough irrigation of cefazolin followed. The rest of the closure proceeded in layers. Skin glue was applied. The patient did not receive any blood bank product but received 600 mL of Cell Saver blood. He was transferred to the ICU in stable condition, normal sinus rhythm. PA pressure of 29/16, mean arterial pressure of 78 and no drips. MMODL / IJN: [id number] /
[2018-10-01 15:16] LABS: Glucose,Whole Blood 131 mg/dL (75-99)
[2018-10-01] MEDS: IPRATROPIUM-ALBUTEROL 3 ML NEB INHALATION SCH ×2 (15:51→19:44)
[2018-10-01] MEDS: ceFAZolin IN SWFI 2 GM/20 ML SYRINGE IVP SCH ×2 (15:57→23:51)
[2018-10-01] MEDS ORDERED: IPRATROPIUM-ALBUTEROL 3 ML NEB INHALATION SCH (16:00)
[2018-10-01 16:07] LABS: Glucose,Whole Blood 161 mg/dL (75-99)
[2018-10-01 16:57] LABS: Basophils % (A) 0 %; Eosinophils % (A) 0 %; Lymphocytes # (A) 1.1 k/uL (1.0-4.8); Lymphocytes % (A) 9 %; MCH 31.8 pg (25.0-35.0); MCHC 33.7 g/dL (31.0-37.0); MCV 94.3 fL (80.0-100.0); Mean Platelet Volume 6.9; Monocytes # (A) 0.8 k/uL (0-1.0); Monocytes % (A) 6 %; Neutrophils # (A) 9.9 k/uL (1.3-7.7); Neutrophils % (A) 83 %; Platelet Count 190 k/uL (150-450); RBC 4.13 m/uL (4.30-5.90); RDW 13.3 % (11.5-15.5); WBC 11.9 k/uL (3.8-10.6)
[2018-10-01 17:01] LABS: HGB 13.1 gm/dL (13.0-17.5)
[2018-10-01] MEDS: ACETAMINOPHEN IV (For NPO) 1,000 MG in EMPTY BAG 1 BAG IVPB SCH (17:10)
[2018-10-01 17:14] LABS: Glucose,Whole Blood 164 mg/dL (75-99)
[2018-10-01] MEDS: KETOROLAC 30 MG/ML 1 ML VIAL IVP SCH ×2 (17:42→22:15)
[2018-10-01 18:31] LABS: Glucose,Whole Blood 146 mg/dL (75-99)
[2018-10-01 19:13] LABS: Glucose,Whole Blood 145 mg/dL (75-99)
[2018-10-01 19:14] LABS: Basophils % (A) 0 %; Eosinophils # (A) 0.1 k/uL (0-0.7); Eosinophils % (A) 0 %; HCT 38.2 % (39.0-53.0); HGB 12.7 gm/dL (13.0-17.5); Lymphocytes # (A) 0.5 k/uL (1.0-4.8); Lymphocytes % (A) 5 %; MCH 31.1 pg (25.0-35.0); MCHC 33.1 g/dL (31.0-37.0); MCV 93.7 fL (80.0-100.0); Mean Platelet Volume 6.4; Monocytes # (A) 0.4 k/uL (0-1.0); Monocytes % (A) 4 %; Neutrophils # (A) 9.3 k/uL (1.3-7.7); Neutrophils % (A) 90 %; Platelet Count 172 k/uL (150-450); RBC 4.08 m/uL (4.30-5.90); RDW 13.2 % (11.5-15.5); WBC 10.4 k/uL (3.8-10.6)
[2018-10-01 20:45] LABS: Glucose,Whole Blood 143 mg/dL (75-99)
[2018-10-01] MEDS: HEPARIN SODIUM,PORCINE 5,000 UNIT/ML 1 ML VIAL SQ SCH ×2 (20:45→23:48)
[2018-10-01] MEDS: MUPIROCIN 2% OINT 22 GM TUBE NASAL SCH (20:46)
[2018-10-01] MEDS ORDERED: METOPROLOL TARTRATE 12.5 MG TAB PO SCH (21:00)
[2018-10-01] MEDS ORDERED: MUPIROCIN 2% OINT 22 GM TUBE NASAL ONE (21:15)
[2018-10-01] MEDS ORDERED: METOPROLOL TARTRATE 12.5 MG TAB PO PRN (21:15)
[2018-10-01 21:18] LABS: Glucose,Whole Blood 154 mg/dL (75-99)
[2018-10-01 22:17] LABS: Glucose,Whole Blood 138 mg/dL (75-99)
[2018-10-01] MEDS: CLEVIDIPINE BUTYRATE 25 MG in EMPTY BAG 1 BAG IV SCH (22:40)
[2018-10-01] MEDS: ALBUMIN HUMAN 5% 250 ML in EMPTY BAG 1 BAG IVPB PRN (23:04)
[2018-10-01 23:09] LABS: Glucose,Whole Blood 135 mg/dL (75-99)
[2018-10-02] MEDS: ACETAMINOPHEN IV (For NPO) 1,000 MG in EMPTY BAG 1 BAG IVPB SCH ×4 (00:14→18:05)
[2018-10-02 00:16] LABS: Glucose,Whole Blood 128 mg/dL (75-99)
[2018-10-02 01:09] LABS: Glucose,Whole Blood 125 mg/dL (75-99)
[2018-10-02 02:14] LABS: Glucose,Whole Blood 127 mg/dL (75-99)
[2018-10-02 03:13] LABS: Glucose,Whole Blood 132 mg/dL (75-99)
[2018-10-02] MEDS: KETOROLAC 30 MG/ML 1 ML VIAL IVP SCH ×4 (04:07→22:33)
[2018-10-02 04:33] LABS: Glucose,Whole Blood 123 mg/dL (75-99)
[2018-10-02 04:45] LABS: Basophils % (A) 0 %; Eosinophils % (A) 1 %; HCT 33.8 % (39.0-53.0); Lymphocytes # (A) 0.8 k/uL (1.0-4.8); Lymphocytes % (A) 10 %; MCH 30.6 pg (25.0-35.0); MCHC 32.6 g/dL (31.0-37.0); MCV 93.9 fL (80.0-100.0); Mean Platelet Volume 6.6; Monocytes # (A) 0.5 k/uL (0-1.0); Monocytes % (A) 6 %; Neutrophils # (A) 6.9 k/uL (1.3-7.7); Neutrophils % (A) 83 %; Platelet Count 163 k/uL (150-450); RDW 13.4 % (11.5-15.5); WBC 8.3 k/uL (3.8-10.6)
[2018-10-02 04:51] LABS: Ionized Calcium 4.7 mg/dL (4.5-5.3)
[2018-10-02 04:59] LABS: ALT 63 U/L (21-72); AST 49 U/L (17-59); Albumin 3.2 g/dL (3.5-5.0); Alkaline Phosphatase 41 U/L (38-126); Anion Gap 6 mmol/L; Blood Urea Nitrogen 15 mg/dL (9-20); Calcium 8.3 mg/dL (8.4-10.2); Carbon Dioxide 24 mmol/L (22-30); Chloride 106 mmol/L (98-107); Glucose 121 mg/dL (74-99); Magnesium 2.2 mg/dL (1.6-2.3); Partial Thromboplastin Time 22.9 sec (22.0-30.0); Potassium 4.1 mmol/L (3.5-5.1); Prothrombin Time 10.6 sec (9.0-12.0); Sodium 136 mmol/L (137-145); Total Bilirubin 0.6 mg/dL (0.2-1.3); Total Protein 5.3 g/dL (6.3-8.2)
[2018-10-02 05:40] LABS: Glucose,Whole Blood 126 mg/dL (75-99)
[2018-10-02] MEDS: ALBUMIN HUMAN 5% 250 ML in EMPTY BAG 1 BAG IVPB PRN ×2 (06:07→06:57)
[2018-10-02 06:17] LABS: Glucose,Whole Blood 131 mg/dL (75-99)
[2018-10-02 07:23] LABS: Glucose,Whole Blood 139 mg/dL (75-99)
[2018-10-02] MEDS: IPRATROPIUM-ALBUTEROL 3 ML NEB INHALATION SCH ×4 (07:23→19:21)
--- NOTE | 2018-10-02 07:43 | P.PN ---
Subjective Progress Note Date: 10/02/18 Principal diagnosis: Severe mitral valve regurgitation from P2 prolapse. Hyperlipidemia. Previous tobacco dependence with preoperative FEV1 92% of predicted. Family history of premature coronary artery disease with father at 52 years old from CAD. Obesity. POD #1 complex mitral valve repair with triangular resection of P2 and posterior annuloplasty using a #30 AnnuloFlex posterior ring. Exclusion of the left atrial appendage using a 40 mm AtriClip. Intraoperative transesophageal echocardiogram and epi-aortic scanning. The patient is currently sitting up in a recliner in no acute distress. Does complain of pain at his mediastinal chest tube sites which is mostly controlled with current pain medication regimen. Denies shortness of breath. He was successfully extubated yesterday at 14:57. He remains hemodynamically stable on no inotropes or pressors. He did receive albumin for low CVP and urine output. No new complaints. Objective - Vital Signs Vital signs: Vital Signs Temp 98.3 F 10/01/18 06:07 Pulse 70 10/02/18 07:00 Resp 21 10/02/18 07:00 BP 110/79 10/01/18 21:00 Pulse Ox 92 L 10/02/18 07:00 Intake & Output 10/01/18 10/02/18 10/02/18 18:59 06:59 18:59 Intake Total 011.951 2994.285 99 Output Total 2685 839 20 Balance -2411.062 892.285 79 Weight 96.7 kg Intake: IV 107 1638 99 ACETAMINOPHEN IV (For NPO 100 ) 1,000 mg In Empty Bag 1 bag @ 400 mls/hr IVPB Q6HR NOÉ Rx#:[id number] Albumin Human 5% 250 ml 500 In Empty Bag 1 bag @ 250 mls/hr IVPB Q1HR PRN Rx#: [id number] Lactated Ringers 1,000 ml 550 50 @ 50 mls/hr IV .Q20H NOÉ Rx#:[id number] cardiac output 60 380 40 pressure bag 45 108 9 Intake, IV Titration 166.938 93.285 Amount Dexmedetomidine/0.9% NaCl 2.658 (Pmx) 400 mcg In Empty Bag 1 bag @ Titrate IV . Q0M NOÉ Rx#:[id number] Insulin Regular 100 unit 4.935 43.285 In Sodium Chloride 0.9% 100 ml @ Per Protocol IV .Q0M NOÉ Rx#:[id number] Lactated Ringers 1,000 ml 150 50 @ 50 mls/hr IV .Q20H NOÉ Rx#:[id number] Propofol 1,000 mg In 9.345 Empty Bag 1 bag @ Titrate IV .Q0M NOÉ Rx#: [id number] Output: Chest Tube Drainage 460 314 0 mediastinal chest x2 300 300 0 right pleural 160 14 0 Urine 1025 525 20 Estimated Blood Loss 1200 Other: Voiding Method Indwelling Catheter Indwelling Catheter ABP, PAP, CO, CI - Last Documented Arterial Blood Pressure 117/58 Pulmonary Artery Pressure 33/12 Cardiac Output 5.6 Cardiac Index 2.6 - Constitutional General appearance: Present: cooperative, no acute distress, obese - Respiratory Details: Lungs sounds diminished bilaterally. Respirations even, nonlabored. Currently on 8 L high flow nasal cannula with oxygen saturation 92%. Able to achieve 750 and his incentive spirometer. Weak cough. Mediastinal chest tube to continuous wall suction, 220 mL serosanguineous drainage overnight, 700 mL since surgery. Right pleural chest tube to continuous wall suction, 4 mL serous drainage overnight, 180 mL since surgery. No air leaks present. - Cardiovascular Details: S1, S2 present. Regular rate and rhythm, sinus rhythm on telemetry. Sternum stable. A/V epicardial pacemaker wires present, connected to generator, VVI mode with backup rate 50 bpm. Palpable peripheral pulses bilaterally. No edema present. No calf pain or tenderness noted. Right internal jugular Kirkwood/ Cordis, left radial arterial line present. Last CO/CI 5.6/2.6 on no inotropes or pressors. Heart hugger in place with patient demonstrating appropriate use. Antiembolism stockings, SCDs present. - Gastrointestinal Gastrointestinal Comment(s): Abdomen soft, nontender, nondistended. Hypoactive bowel sounds present 4 quadrants. Tolerating clear liquids with one incidence of emesis this morning relieved with Zofran. Positive belching, negative flatus. - Genitourinary Genitourinary Comment(s): Naranjo present draining clear, yellow urine. Output overnight 10-75 mL per hour , 310 mL last 8 hours. - Integumentary Integumentary Comment(s): Skin is warm and dry with evidence of good perfusion. Anterior chest incision well approximated and covered with dry intact dressing. - Neurologic Neurologic: Present: CNII-XII intact - Musculoskeletal Musculoskeletal: Present: strength equal bilaterally - Psychiatric Psychiatric: Present: A&O x's 3, appropriate affect, intact judgment & insight - Allied health notes Allied health notes reviewed: nursing - Labs CBC & Chem 7: 10/02/18 04:20 10/02/18 04:20 Labs: Abnormal Lab Results - Last 24 Hours (Table) 09/26/18 10/01/18 10/01/18 Range/Units 08:28 08:43 09:34 WBC (3.8-10.6) k/uL RBC (4.30-5.90) m/uL Hgb (13.0-17.5) gm/dL Hct (39.0-53.0) % Plt Count (150-450) k/uL Neutrophils # (1.3-7.7) k/uL Lymphocytes # (1.0-4.8) k/uL ABG pH (7.35-7.45) ABG pCO2 (35-45) mmHg ABG pO2 111 H 147 H (83-108) mmHg ABG HCO3 (21-25) mmol/L ABG Total CO2 26 H 25 H (19-24) mmol/L ABG O2 Saturation 98.4 H 99.4 H (94-97) % ABG Hematocrit (34.0-46.0) % ABG Potassium (3.4-4.5) mmol/L ABG Ionized Calcium (4.5-5.3) mg/dL ABG Glucose 108 H 124 H (75-99) mg/dL ABG Lactic Acid 2.3 H* (0.5-1.6) mmol/L Hemoglobin 12.8 L (13.0-17.5) gm/dL Sodium (137-145) mmol/L Chloride (98-107) mmol/L Creatinine (0.66-1.25) mg/dL Glucose (74-99) mg/dL POC Glucose (mg/dL) (75-99) mg/dL Calcium (8.4-10.2) mg/dL Magnesium (1.6-2.3) mg/dL ALT (21-72) U/L Total Protein (6.3-8.2) g/dL Albumin (3.5-5.0) g/dL Arterial Blood Potassium (3.4-4.5) mmol/L Arterial Blood Glucose 108 H 124 H (75-99) mg/dL Crossmatch See Detail 10/01/18 10/01/18 10/01/18 Range/Units 10:08 10:41 11:10 WBC (3.8-10.6) k/uL RBC (4.30-5.90) m/uL Hgb (13.0-17.5) gm/dL Hct (39.0-53.0) % Plt Count (150-450) k/uL Neutrophils # (1.3-7.7) k/uL Lymphocytes # (1.0-4.8) k/uL ABG pH 7.34 L (7.35-7.45) ABG pCO2 (35-45) mmHg ABG pO2 >420 H 261 H 406 H (83-108) mmHg ABG HCO3 (21-25) mmol/L ABG Total CO2 25 H 25 H (19-24) mmol/L ABG O2 Saturation 100.0 H 100.0 H 100.0 H (94-97) % ABG Hematocrit 33 L (34.0-46.0) % ABG Potassium 4.6 H 4.9 H (3.4-4.5) mmol/L ABG Ionized Calcium 4.3 L 4.4 L 4.4 L (4.5-5.3) mg/dL ABG Glucose 132 H 183 H 206 H (75-99) mg/dL ABG Lactic Acid 1.7 H 1.7 H (0.5-1.6) mmol/L Hemoglobin 11.1 L 10.9 L 10.7 L (13.0-17.5) gm/dL Sodium (137-145) mmol/L Chloride (98-107) mmol/L Creatinine (0.66-1.25) mg/dL Glucose (74-99) mg/dL POC Glucose (mg/dL) (75-99) mg/dL Calcium (8.4-10.2) mg/dL Magnesium (1.6-2.3) mg/dL ALT (21-72) U/L Total Protein (6.3-8.2) g/dL Albumin (3.5-5.0) g/dL Arterial Blood Potassium 4.6 H 4.9 H (3.4-4.5) mmol/L Arterial Blood Glucose 132 H 183 H 206 H (75-99) mg/dL Crossmatch 10/01/18 10/01/18 10/01/18 Range/Units 12:06 13:29 13:33 WBC (3.8-10.6) k/uL RBC (4.30-5.90) m/uL Hgb (13.0-17.5) gm/dL Hct (39.0-53.0) % Plt Count (150-450) k/uL Neutrophils # (1.3-7.7) k/uL Lymphocytes # (1.0-4.8) k/uL ABG pH 7.33 L 7.33 L (7.35-7.45) ABG pCO2 50 H (35-45) mmHg ABG pO2 139 H 256 H (83-108) mmHg ABG HCO3 26 H (21-25) mmol/L ABG Total CO2 28 H (19-24) mmol/L ABG O2 Saturation 99.3 H 99.9 H (94-97) % ABG Hematocrit (34.0-46.0) % ABG Potassium (3.4-4.5) mmol/L ABG Ionized Calcium (4.5-5.3) mg/dL ABG Glucose 163 H (75-99) mg/dL ABG Lactic Acid 2.6 H* (0.5-1.6) mmol/L Hemoglobin 11.3 L (13.0-17.5) gm/dL Sodium (137-145) mmol/L Chloride (98-107) mmol/L Creatinine (0.66-1.25) mg/dL Glucose (74-99) mg/dL POC Glucose (mg/dL) 131 H (75-99) mg/dL Calcium (8.4-10.2) mg/dL Magnesium (1.6-2.3) mg/dL ALT (21-72) U/L Total Protein (6.3-8.2) g/dL Albumin (3.5-5.0) g/dL Arterial Blood Potassium (3.4-4.5) mmol/L Arterial Blood Glucose 163 H (75-99) mg/dL Crossmatch 10/01/18 10/01/18 10/01/18 Range/Units 13:36 13:36 15:04 WBC (3.8-10.6) k/uL RBC 3.65 L (4.30-5.90) m/uL Hgb 11.6 L D (13.0-17.5) gm/dL Hct 34.5 L (39.0-53.0) % Plt Count 123 L (150-450) k/uL Neutrophils # (1.3-7.7) k/uL Lymphocytes # 0.8 L (1.0-4.8) k/uL ABG pH (7.35-7.45) ABG pCO2 (35-45) mmHg ABG pO2 (83-108) mmHg ABG HCO3 (21-25) mmol/L ABG Total CO2 (19-24) mmol/L ABG O2 Saturation (94-97) % ABG Hematocrit (34.0-46.0) % ABG Potassium (3.4-4.5) mmol/L ABG Ionized Calcium (4.5-5.3) mg/dL ABG Glucose (75-99) mg/dL ABG Lactic Acid (0.5-1.6) mmol/L Hemoglobin (13.0-17.5) gm/dL Sodium (137-145) mmol/L Chloride 109 H (98-107) mmol/L Creatinine 0.64 L (0.66-1.25) mg/dL Glucose 117 H (74-99) mg/dL POC Glucose (mg/dL) 131 H (75-99) mg/dL Calcium 8.1 L (8.4-10.2) mg/dL Magnesium 2.4 H (1.6-2.3) mg/dL ALT 75 H (21-72) U/L Total Protein 4.8 L (6.3-8.2) g/dL Albumin 2.8 L (3.5-5.0) g/dL Arterial Blood Potassium (3.4-4.5) mmol/L Arterial Blood Glucose (75-99) mg/dL Crossmatch 10/01/18 10/01/18 10/01/18 Range/Units 15:54 16:00 17:03 WBC 11.9 H (3.8-10.6) k/uL RBC 4.13 L (4.30-5.90) m/uL Hgb (13.0-17.5) gm/dL Hct (39.0-53.0) % Plt Count (150-450) k/uL Neutrophils # 9.9 H (1.3-7.7) k/uL Lymphocytes # (1.0-4.8) k/uL ABG pH (7.35-7.45) ABG pCO2 (35-45) mmHg ABG pO2 (83-108) mmHg ABG HCO3 (21-25) mmol/L ABG Total CO2 (19-24) mmol/L ABG O2 Saturation (94-97) % ABG Hematocrit (34.0-46.0) % ABG Potassium (3.4-4.5) mmol/L ABG Ionized Calcium (4.5-5.3) mg/dL ABG Glucose (75-99) mg/dL ABG Lactic Acid (0.5-1.6) mmol/L Hemoglobin (13.0-17.5) gm/dL Sodium (137-145) mmol/L Chloride (98-107) mmol/L Creatinine (0.66-1.25) mg/dL Glucose (74-99) mg/dL POC Glucose (mg/dL) 161 H 164 H (75-99) mg/dL Calcium (8.4-10.2) mg/dL Magnesium (1.6-2.3) mg/dL ALT (21-72) U/L Total Protein (6.3-8.2) g/dL Albumin (3.5-5.0) g/dL Arterial Blood Potassium (3.4-4.5) mmol/L Arterial Blood Glucose (75-99) mg/dL Crossmatch 10/01/18 10/01/18 10/01/18 Range/Units 18:20 19:02 19:02 WBC (3.8-10.6) k/uL RBC 4.08 L (4.30-5.90) m/uL Hgb 12.7 L (13.0-17.5) gm/dL Hct 38.2 L (39.0-53.0) % Plt Count (150-450) k/uL Neutrophils # 9.3 H (1.3-7.7) k/uL Lymphocytes # 0.5 L (1.0-4.8) k/uL ABG pH (7.35-7.45) ABG pCO2 (35-45) mmHg ABG pO2 (83-108) mmHg ABG HCO3 (21-25) mmol/L ABG Total CO2 (19-24) mmol/L ABG O2 Saturation (94-97) % ABG Hematocrit (34.0-46.0) % ABG Potassium (3.4-4.5) mmol/L ABG Ionized Calcium (4.5-5.3) mg/dL ABG Glucose (75-99) mg/dL ABG Lactic Acid (0.5-1.6) mmol/L Hemoglobin (13.0-17.5) gm/dL Sodium (137-145) mmol/L Chloride (98-107) mmol/L Creatinine (0.66-1.25) mg/dL Glucose (74-99) mg/dL POC Glucose (mg/dL) 146 H 145 H (75-99) mg/dL Calcium (8.4-10.2) mg/dL Magnesium (1.6-2.3) mg/dL ALT (21-72) U/L Total Protein (6.3-8.2) g/dL Albumin (3.5-5.0) g/dL Arterial Blood Potassium (3.4-4.5) mmol/L Arterial Blood Glucose (75-99) mg/dL Crossmatch 10/01/18 10/01/18 10/01/18 Range/Units 20:15 21:07 22:06 WBC (3.8-10.6) k/uL RBC (4.30-5.90) m/uL Hgb (13.0-17.5) gm/dL Hct (39.0-53.0) % Plt Count (150-450) k/uL Neutrophils # (1.3-7.7) k/uL Lymphocytes # (1.0-4.8) k/uL ABG pH (7.35-7.45) ABG pCO2 (35-45) mmHg ABG pO2 (83-108) mmHg ABG HCO3 (21-25) mmol/L ABG Total CO2 (19-24) mmol/L ABG O2 Saturation (94-97) % ABG Hematocrit (34.0-46.0) % ABG Potassium (3.4-4.5) mmol/L ABG Ionized Calcium (4.5-5.3) mg/dL ABG Glucose (75-99) mg/dL ABG Lactic Acid (0.5-1.6) mmol/L Hemoglobin (13.0-17.5) gm/dL Sodium (137-145) mmol/L Chloride (98-107) mmol/L Creatinine (0.66-1.25) mg/dL Glucose (74-99) mg/dL POC Glucose (mg/dL) 143 H 154 H 138 H (75-99) mg/dL Calcium (8.4-10.2) mg/dL Magnesium (1.6-2.3) mg/dL ALT (21-72) U/L Total Protein (6.3-8.2) g/dL Albumin (3.5-5.0) g/dL Arterial Blood Potassium (3.4-4.5) mmol/L Arterial Blood Glucose (75-99) mg/dL Crossmatch 10/01/18 10/02/18 10/02/18 Range/Units 22:57 00:05 00:57 WBC (3.8-10.6) k/uL RBC (4.30-5.90) m/uL Hgb (13.0-17.5) gm/dL Hct (39.0-53.0) % Plt Count (150-450) k/uL Neutrophils # (1.3-7.7) k/uL Lymphocytes # (1.0-4.8) k/uL ABG pH (7.35-7.45) ABG pCO2 (35-45) mmHg ABG pO2 (83-108) mmHg ABG HCO3 (21-25) mmol/L ABG Total CO2 (19-24) mmol/L ABG O2 Saturation (94-97) % ABG Hematocrit (34.0-46.0) % ABG Potassium (3.4-4.5) mmol/L ABG Ionized Calcium (4.5-5.3) mg/dL ABG Glucose (75-99) mg/dL ABG Lactic Acid (0.5-1.6) mmol/L Hemoglobin (13.0-17.5) gm/dL Sodium (137-145) mmol/L Chloride (98-107) mmol/L Creatinine (0.66-1.25) mg/dL Glucose (74-99) mg/dL POC Glucose (mg/dL) 135 H 128 H 125 H (75-99) mg/dL Calcium (8.4-10.2) mg/dL Magnesium (1.6-2.3) mg/dL ALT (21-72) U/L Total Protein (6.3-8.2) g/dL Albumin (3.5-5.0) g/dL Arterial Blood Potassium (3.4-4.5) mmol/L Arterial Blood Glucose (75-99) mg/dL Crossmatch 10/02/18 10/02/18 10/02/18 Range/Units 02:02 03:03 04:17 WBC (3.8-10.6) k/uL RBC (4.30-5.90) m/uL Hgb (13.0-17.5) gm/dL Hct (39.0-53.0) % Plt Count (150-450) k/uL Neutrophils # (1.3-7.7) k/uL Lymphocytes # (1.0-4.8) k/uL ABG pH (7.35-7.45) ABG pCO2 (35-45) mmHg ABG pO2 (83-108) mmHg ABG HCO3 (21-25) mmol/L ABG Total CO2 (19-24) mmol/L ABG O2 Saturation (94-97) % ABG Hematocrit (34.0-46.0) % ABG Potassium (3.4-4.5) mmol/L ABG Ionized Calcium (4.5-5.3) mg/dL ABG Glucose (75-99) mg/dL ABG Lactic Acid (0.5-1.6) mmol/L Hemoglobin (13.0-17.5) gm/dL Sodium (137-145) mmol/L Chloride (98-107) mmol/L Creatinine (0.66-1.25) mg/dL Glucose (74-99) mg/dL POC Glucose (mg/dL) 127 H 132 H 123 H (75-99) mg/dL Calcium (8.4-10.2) mg/dL Magnesium (1.6-2.3) mg/dL ALT (21-72) U/L Total Protein (6.3-8.2) g/dL Albumin (3.5-5.0) g/dL Arterial Blood Potassium (3.4-4.5) mmol/L Arterial Blood Glucose (75-99) mg/dL Crossmatch 10/02/18 10/02/18 10/02/18 Range/Units 04:20 04:20 05:28 WBC (3.8-10.6) k/uL RBC 3.60 L (4.30-5.90) m/uL Hgb 11.0 L (13.0-17.5) gm/dL Hct 33.8 L (39.0-53.0) % Plt Count (150-450) k/uL Neutrophils # (1.3-7.7) k/uL Lymphocytes # 0.8 L (1.0-4.8) k/uL ABG pH (7.35-7.45) ABG pCO2 (35-45) mmHg ABG pO2 (83-108) mmHg ABG HCO3 (21-25) mmol/L ABG Total CO2 (19-24) mmol/L ABG O2 Saturation (94-97) % ABG Hematocrit (34.0-46.0) % ABG Potassium (3.4-4.5) mmol/L ABG Ionized Calcium (4.5-5.3) mg/dL ABG Glucose (75-99) mg/dL ABG Lactic Acid (0.5-1.6) mmol/L Hemoglobin (13.0-17.5) gm/dL Sodium 136 L (137-145) mmol/L Chloride (98-107) mmol/L Creatinine 0.57 L (0.66-1.25) mg/dL Glucose 121 H (74-99) mg/dL POC Glucose (mg/dL) 126 H (75-99) mg/dL Calcium 8.3 L (8.4-10.2) mg/dL Magnesium (1.6-2.3) mg/dL ALT (21-72) U/L Total Protein 5.3 L (6.3-8.2) g/dL Albumin 3.2 L (3.5-5.0) g/dL Arterial Blood Potassium (3.4-4.5) mmol/L Arterial Blood Glucose (75-99) mg/dL Crossmatch 10/02/18 Range/Units 06:06 WBC (3.8-10.6) k/uL RBC (4.30-5.90) m/uL Hgb (13.0-17.5) gm/dL Hct (39.0-53.0) % Plt Count (150-450) k/uL Neutrophils # (1.3-7.7) k/uL Lymphocytes # (1.0-4.8) k/uL ABG pH (7.35-7.45) ABG pCO2 (35-45) mmHg ABG pO2 (83-108) mmHg ABG HCO3 (21-25) mmol/L ABG Total CO2 (19-24) mmol/L ABG O2 Saturation (94-97) % ABG Hematocrit (34.0-46.0) % ABG Potassium (3.4-4.5) mmol/L ABG Ionized Calcium (4.5-5.3) mg/dL ABG Glucose (75-99) mg/dL ABG Lactic Acid (0.5-1.6) mmol/L Hemoglobin (13.0-17.5) gm/dL Sodium (137-145) mmol/L Chloride (98-107) mmol/L Creatinine (0.66-1.25) mg/dL Glucose (74-99) mg/dL POC Glucose (mg/dL) 131 H (75-99) mg/dL Calcium (8.4-10.2) mg/dL Magnesium (1.6-2.3) mg/dL ALT (21-72) U/L Total Protein (6.3-8.2) g/dL Albumin (3.5-5.0) g/dL Arterial Blood Potassium (3.4-4.5) mmol/L Arterial Blood Glucose (75-99) mg/dL Crossmatch - Imaging and Cardiology Chest x-ray: image reviewed Assessment and Plan (1) Severe mitral valve regurgitation Current Visit: Yes Status: Chronic Code(s): I34.0 - NONRHEUMATIC MITRAL ( VALVE) INSUFFICIENCY SNOMED Code(s): 42626122 (2) Hyperlipidemia Current Visit: Yes Status: Chronic Code(s): E78.5 - HYPERLIPIDEMIA, UNSPECIFIED SNOMED Code(s): 51589927 (3) Tobacco dependence in remission Current Visit: No Status: Resolved Code(s): F17.201 - NICOTINE DEPENDENCE, UNSPECIFIED, IN REMISSION SNOMED Code(s): 027233217 (4) Obesity (BMI 30.0-34.9) Current Visit: Yes Status: Chronic Code(s): E66.9 - OBESITY, UNSPECIFIED SNOMED Code(s): 831450305515173 (5) Family history of coronary artery disease Current Visit: Yes Status: Chronic Code(s): Z82.49 - FAMILY HX OF ISCHEM HEART DIS AND OTH DIS OF THE CIRC SYS SNOMED Code(s): 740221129 Plan: 1. Continue aspirin, statin, beta sophie therapy. Will increase beta sophie therapy as tolerated. 2. Wean O2 as tolerated. Encourage incentive spirometry 10 times every hour while awake. 3. Encourage continued smoking cessation. 4. Increase activity, ambulate as tolerated. PT/OT/cardiac rehab following. 5. Bronchodilators per pulmonology. 6. Continue pain control with current medication regimen. Toradol added last night. 7. Insulin management per primary care service. 8. GI prophylaxis with Protonix, DVT prophylaxis with subcu heparin, SCDs. 9. Will monitor daily labs and x-rays. Electrolyte replacement per protocol. 10. Discontinue Kirkwood-Brian catheter. Connect Cordis to continue CVP monitoring. 11. Will keep mediastinal, right pleural chest tubes, Naranjo catheter for another 24 hours. 12. More recommendations to follow. Time with Patient: Greater than 30
--- NOTE | 2018-10-02 07:44 | XR ---
EXAMINATION TYPE: XR chest 1V portable DATE OF EXAM: 10/02/2018 COMPARISON: Prior chest x-ray 10/01/2018 HISTORY: Postop cardiac surgery TECHNIQUE: Single frontal view of the chest is obtained. FINDINGS: Patient is post median sternotomy and atrial appendage clipping. Right jugular central kenneth ous sheath and coaxial Catlett-Brian catheter remain in place. Endotracheal tube and orogastric tube have been removed. Patchy bibasilar density persists. No evident pneumothorax. Heart remains enlarged. Pa tient is rotated. Median sternal drain, right chest tube are stable. IMPRESSION: Interval extubation. Basilar atelectasis.
[2018-10-02] MEDS: HEPARIN SODIUM,PORCINE 5,000 UNIT/ML 1 ML VIAL SQ SCH ×2 (08:11→16:24)
[2018-10-02] MEDS: ceFAZolin IN SWFI 2 GM/20 ML SYRINGE IVP SCH (08:11)
[2018-10-02] MEDS: METOPROLOL TARTRATE 25 MG TAB PO SCH ×2 (08:11→20:53)
[2018-10-02] MEDS: MUPIROCIN 2% OINT 22 GM TUBE NASAL SCH ×2 (08:12→20:57)
[2018-10-02] MEDS: ATORVASTATIN 40 MG TAB PO SCH (08:12)
[2018-10-02] MEDS: ASPIRIN 325 MG TAB PO SCH (08:12)
--- NOTE | 2018-10-02 08:15 | P.CRDCN ---
History of Present Illness Consult date: 10/02/18 History of present illness: This is a pleasant 58-year-old gentleman who I follow in the office as an outpatient who was diagnosed recently with severe symptomatic mitral regurgitation was admitted to the hospital yesterday and underwent mitral valve repair. In August 2016, I did perform a heart catheterization on him and that revealed mild nonobstructive disease involving the left anterior descending artery. The transesophageal echocardiogram revealed prolapsing of the P2 component of the posterior mitral leaflet with evidence of severe mitral regurgitation with a wide-based MR and anteriorly directed jet. Yesterday the patient underwent a complex repair of mitral valve with annuloplasty. This is his post operation day #1. Clinically the patient has done very well. He was extubated yesterday. In the OR he did have multiple episodes of atrial fibrillation but after the surgery, he has been maintaining normal sinus mechanism. He is not on any vasopressors. The EKG revealed sinus rhythm with first-degree AV block. The patient has been putting good amount of urine. Interim of medications, he is on aspirin, and he is on metoprolol, and he is on statin. Past Medical History Past Medical History: Hyperlipidemia Additional Past Medical History / Comment(s): intermittent SOB,mitral valve regurgitation History of Any Multi-Drug Resistant Organisms: None Reported Past Surgical History: Appendectomy, Heart Catheterization, Tonsillectomy Additional Past Surgical History / Comment(s): LEFT HAND SURGERY, CYST EXC ON BACK Past Anesthesia/Blood Transfusion Reactions: No Reported Reaction Additional Past Anesthesia/Blood Transfusion Reaction / Comment(s): no hx blood transfusion Smoking Status: Former smoker - Past Family History Mother Family Medical History: Coronary Artery Disease (CAD) Father Family Medical History: Deep Vein Thrombosis (DVT) Medications and Allergies Home Medications Medication Instructions Recorded Confirmed Type Atorvastatin [Lipitor] 20 mg PO DAILY 10/24/17 10/01/18 History Mupirocin 2% Oint [Bactroban 2% 1 applic NASAL BID 09/26/18 09/26/18 History Oint] Allergies Allergy/AdvReac Type Severity Reaction Status Date / Time No Known Allergies Allergy Verified 10/01/18 14:05 Physical Exam Vitals: Vital Signs Pulse Pulse Resp BP Pulse Ox 10/02/18 07:33 74 10/02/18 07:23 73 10/02/18 07:00 70 21 92 L 10/02/18 06:00 73 28 H 91 L 10/02/18 05:00 73 21 92 L 10/02/18 04:00 72 102 H 24 92 L 10/02/18 03:00 73 19 93 L 10/02/18 02:00 74 22 93 L 10/02/18 01:00 79 27 H 95 10/02/18 00:19 79 16 93 L 10/02/18 00:01 87 17 94 L 10/02/18 00:00 17 10/01/18 23:00 79 18 95 10/01/18 22:00 78 24 95 10/01/18 21:00 82 13 110/79 96 10/01/18 20:00 88 23 110/79 96 10/01/18 19:59 89 10/01/18 19:47 86 10/01/18 19:00 86 14 95 10/01/18 18:00 93 20 100/75 94 L 10/01/18 17:00 96 16 100/75 95 10/01/18 16:10 97 18 100/75 94 L 10/01/18 16:04 97 10/01/18 16:00 98 17 100/75 98 10/01/18 15:53 97 10/01/18 15:50 98 16 100/75 96 10/01/18 15:47 95 10/01/18 15:40 97 17 94 L 10/01/18 15:30 96 14 95 10/01/18 15:20 98 15 92 L 10/01/18 15:10 98 17 100/75 92 L 10/01/18 15:00 99 20 100/75 83 L 10/01/18 14:50 102 H 24 92 L 10/01/18 14:40 87 12 94 L 10/01/18 14:30 98 23 91 L 10/01/18 14:20 84 14 97 10/01/18 14:10 83 13 96 10/01/18 14:00 83 14 95 10/01/18 13:50 81 15 97 10/01/18 13:40 80 18 99 10/01/18 13:30 78 23 84/57 100 10/01/18 13:20 17 10/01/18 13:16 12 Intake and Output 10/01/18 10/02/18 10/02/18 22:59 06:59 14:59 Intake Total 112.650 4078.700 99 Output Total 770 534 20 Balance -67.822 728.700 79 Intake: IV 482 1232 99 ACETAMINOPHEN IV (For NPO 100 ) 1,000 mg In Empty Bag 1 bag @ 400 mls/hr IVPB Q6HR [facility] Rx#:[id number] Albumin Human 5% 250 ml 500 In Empty Bag 1 bag @ 250 mls/hr IVPB Q1HR PRN Rx#: [id number] Lactated Ringers 1,000 ml 150 400 50 @ 50 mls/hr IV .Q20H [facility] Rx#:[id number] cardiac output 160 260 40 pressure bag 72 72 9 Intake, IV Titration 220.178 30.700 Amount Dexmedetomidine/0.9% NaCl 2.658 (Pmx) 400 mcg In Empty Bag 1 bag @ Titrate IV . Q0M [facility] Rx#:[id number] Insulin Regular 100 unit 17.520 30.700 In Sodium Chloride 0.9% 100 ml @ Per Protocol IV .Q0M NO[facility] Rx#:[id number] Lactated Ringers 1,000 ml 200 @ 50 mls/hr IV .Q20H [facility] Rx#:[id number] Output: Chest Tube Drainage 150 224 0 mediastinal chest x2 130 220 0 right pleural 20 4 0 Urine 620 310 20 Other: Voiding Method Indwelling Catheter Indwelling Catheter Weight 96.7 kg ABP, PAP, CO, CI - Last 8 Hours Arterial Blood Pressure 117/58 Arterial Blood Pressure 115/56 Arterial Blood Pressure 129/66 Arterial Blood Pressure 106/56 Arterial Blood Pressure 120/70 Arterial Blood Pressure 111/68 Arterial Blood Pressure 103/61 Arterial Blood Pressure 114/63 Pulmonary Artery Pressure 33/12 Pulmonary Artery Pressure 25/11 Pulmonary Artery Pressure 41/19 Pulmonary Artery Pressure 32/12 Pulmonary Artery Pressure 38/17 Pulmonary Artery Pressure 37/19 Pulmonary Artery Pressure 34/16 Pulmonary Artery Pressure 33/15 Cardiac Output 5.6 Cardiac Output 5.8 Cardiac Output 5.8 Cardiac Output 5.8 Cardiac Output 5.6 Cardiac Output 6.2 Cardiac Output 5.8 Cardiac Output 6.9 Cardiac Index 2.6 Cardiac Index 2.8 Cardiac Index 2.8 Cardiac Index 2.7 Cardiac Index 3.0 Cardiac Index 2.8 - Constitutional General appearance: no acute distress - Respiratory Respiratory: bilateral: CTA - Cardiovascular Rhythm: regular Heart sounds: normal: S1, S2 Abnormal Heart Sounds: systolic murmur Results 10/02/18 04:20 10/02/18 04:20 Cardiac Enzymes 10/01/18 10/02/18 Range/Units 13:36 04:20 AST 55 49 (17-59) U/L Coagulation 10/01/18 10/02/18 Range/Units 13:36 04:20 PT 11.7 10.6 (9.0-12.0) sec APTT 26.0 22.9 (22.0-30.0) sec CBC 10/01/18 10/01/18 10/01/18 Range/Units 13:36 16:00 19:02 WBC 7.0 11.9 H 10.4 (3.8-10.6) k/uL RBC 3.65 L 4.13 L 4.08 L (4.30-5.90) m/uL Hgb 11.6 L D 13.1 12.7 L (13.0-17.5) gm/dL Hct 34.5 L 39.0 38.2 L (39.0-53.0) % Plt Count 123 L 190 D 172 (150-450) k/uL 10/02/18 Range/Units 04:20 WBC 8.3 (3.8-10.6) k/uL RBC 3.60 L (4.30-5.90) m/uL Hgb 11.0 L (13.0-17.5) gm/dL Hct 33.8 L (39.0-53.0) % Plt Count 163 (150-450) k/uL Comprehensive Metabolic Panel 10/01/18 10/02/18 Range/Units 13:36 04:20 Sodium 138 136 L (137-145) mmol/L Potassium 4.1 4.1 (3.5-5.1) mmol/L Chloride 109 H 106 (98-107) mmol/L Carbon Dioxide 25 24 (22-30) mmol/L BUN 12 15 (9-20) mg/dL Creatinine 0.64 L 0.57 L (0.66-1.25) mg/dL Glucose 117 H 121 H (74-99) mg/dL Calcium 8.1 L 8.3 L (8.4-10.2) mg/dL AST 55 49 (17-59) U/L ALT 75 H 63 (21-72) U/L Alkaline Phosphatase 50 41 (38-126) U/L Total Protein 4.8 L 5.3 L (6.3-8.2) g/dL Albumin 2.8 L 3.2 L (3.5-5.0) g/dL Current Medications Generic Name Dose Route Start Last Admin Trade Name Freq PRN Reason Stop Dose Admin Hydrocodone Bitart/Acetaminophen 2 each 10/02/18 23:00 [place] 5-325 PO Q4HR PRN Severe Pain Hydrocodone Bitart/Acetaminophen 1 each 10/02/18 23:00 [place] 5-325 PO Q4HR PRN Moderate Pain Albuterol/Ipratropium 3 ml 10/01/18 13:11 Duoneb 0.5 Mg-3 Mg/3 Ml Soln INHALATION RT-Q2H PRN Shortness Of Breath Or Wheezing Albuterol/Ipratropium 3 ml 10/01/18 18:32 10/02/18 07:23 Duoneb 0.5 Mg-3 Mg/3 Ml Soln INHALATION 3 ml RT-QID NOÉ Administration Aspirin 325 mg 10/02/18 09:00 Aspirin PO DAILY [facility] Atorvastatin Calcium 40 mg 10/02/18 09:00 Lipitor PO DAILY [facility] Benzocaine/Menthol 1 each 10/01/18 13:11 Cepacol Lozenge MUCOUS MEM Q2H PRN Sore Throat Bisacodyl 10 mg 10/02/18 12:31 Dulcolax RECTAL DAILY PRN Constipation Heparin Sodium (Porcine) 5,000 unit 10/01/18 20:31 10/01/18 23:48 Heparin SQ Not Given Q8HR [facility] Acetaminophen 1,000 mg/ IV 100 mls @ 400 mls/hr 10/01/18 18:00 10/02/18 06:53 Solution IVPB 10/02/18 18:01 400 mls/hr Q6HR NOÉ Administration Albumin Human 250 ml/ IV 250 mls @ 250 mls/hr 10/01/18 13:11 10/02/18 06:57 Solution IVPB 10/03/18 13:12 250 mls/hr Q1HR PRN Administration For Volume Amiodarone HCl 150 mg/ 103 mls @ 618 mls/hr 10/01/18 13:11 Dextrose/Water IV .Q10M PRN Per protocol Protocol Amiodarone HCl 450 mg/ 259 mls @ 34.53 mls/hr 10/01/18 13:11 Dextrose/Water IV .Q7H31M PRN Per Protocol Protocol 1 MG/MIN Calcium Chloride 1,000 mg/ 110 mls @ 100 mls/hr 10/01/18 13:11 Sodium Chloride IV 10/31/18 23:00 ONCE PRN Ionized Calcium less than 4.4 Clevidipine 25 mg/ IV Solution 50 mls @ 2 mls/hr 10/01/18 13:11 10/01/18 22: 40 IV Not Given .Q24H [facility] Protocol 1 MG/HR Insulin Human Regular 100 unit 101 mls @ 0 mls/hr 10/01/18 13:11 10/02/18 05: 32 / Sodium Chloride IV 3.5 units/hr .Q0M NO[facility] 3.53 mls/hr Titration Protocol Per Protocol Lactated Ringer's 1,000 mls @ 50 mls/hr 10/01/18 13:11 10/01/18 13:55 Lactated Ringers IV 50 mls/hr .Q20H [facility] Administration Ketorolac Tromethamine 15 mg 10/01/18 16:00 10/02/18 04:07 Toradol IVP 10/06/18 16:01 15 mg Q6H NO[facility] Administration Magnesium Hydroxide 2,400 mg 10/02/18 12:31 Milk Of Magnesia PO BID PRN Constipation Metoclopramide HCl 10 mg 10/01/18 13:11 Reglan IVP Q4H PRN Nausea And Vomiting Metoprolol Tartrate 25 mg 10/02/18 09:00 Lopressor PO BID [facility] Miscellaneous Information 1 each 10/01/18 13:11 Magnesium Per Protocol MISCELLANE DAILY PRN Per Protocol Protocol Miscellaneous Information 1 each 10/01/18 13:11 Phosphorus Per Protocol MISCELLANE DAILY PRN Per Protocol Protocol Miscellaneous Information 1 each 10/01/18 13:11 Potassium Per Protocol MISCELLANE DAILY PRN Per Protocol Protocol Mupirocin 1 applic 10/01/18 21:00 10/01/18 20:46 Bactroban Oint NASAL 10/04/18 21:01 1 applic BID NOÉ Administration Ondansetron HCl 4 mg 10/01/18 13:11 10/02/18 00:01 Zofran IVP 4 mg Q6HR PRN Administration Nausea And Vomiting Oxycodone HCl 10 mg 10/01/18 13:11 10/01/18 18:22 Oxyir PO 10/02/18 23:00 10 mg Q4H PRN Administration Severe Pain Oxycodone HCl 5 mg 10/01/18 13:11 Oxyir PO 10/02/18 23:00 Q4H PRN Moderate Pain Pantoprazole Sodium 40 mg 10/02/18 09:00 Protonix IVP 10/02/18 09:30 DAILY NOÉ Pantoprazole Sodium 40 mg 10/03/18 07:30 Protonix PO AC-BRKFST NOÉ Senna/Docusate Sodium 2 each 10/02/18 21:00 Senokot-S PO HS NOÉ Sodium Chloride 10 ml 10/01/18 21:00 10/01/18 22:39 Saline Flush IV Not Given BID NÉO Intake and Output 10/01/18 10/02/18 10/02/18 22:59 06:59 14:59 Intake Total 971.985 8879.700 99 Output Total 770 534 20 Balance -67.822 728.700 79 Intake: IV 482 1232 99 ACETAMINOPHEN IV (For NPO 100 ) 1,000 mg In Empty Bag 1 bag @ 400 mls/hr IVPB Q6HR [facility] Rx#:[id number] Albumin Human 5% 250 ml 500 In Empty Bag 1 bag @ 250 mls/hr IVPB Q1HR PRN Rx#: [id number] Lactated Ringers 1,000 ml 150 400 50 @ 50 mls/hr IV .Q20H [facility] Rx#:[id number] cardiac output 160 260 40 pressure bag 72 72 9 Intake, IV Titration 220.178 30.700 Amount Dexmedetomidine/0.9% NaCl 2.658 (Pmx) 400 mcg In Empty Bag 1 bag @ Titrate IV . Q0M [facility] Rx#:[id number] Insulin Regular 100 unit 17.520 30.700 In Sodium Chloride 0.9% 100 ml @ Per Protocol IV .Q0M [facility] Rx#:[id number] Lactated Ringers 1,000 ml 200 @ 50 mls/hr IV .Q20H [facility] Rx#:[id number] Output: Chest Tube Drainage 150 224 0 mediastinal chest x2 130 220 0 right pleural 20 4 0 Urine 620 310 20 Other: Voiding Method Indwelling Catheter Indwelling Catheter Weight 96.7 kg 10/02/18 04:20 10/02/18 04:20 Assessment and Plan Assessment: Assessment #1 severe symptomatic mitral regurgitation #2 status post mitral valve repair with annuloplasty #3 mild nonobstructive coronary artery disease Plan #1 continue the current medical regimen including aspirin, metoprolol, and statin #2 continue monitor the rhythm. The patient has been maintaining normal sinus mechanism #3 continue monitor the kidney function as well as electrolytes as well as hemoglobin #4 follow-up with the patient.
[2018-10-02 08:16] LABS: Glucose,Whole Blood 127 mg/dL (75-99)
[2018-10-02] MEDS ORDERED: PANTOPRAZOLE 40 MG/10 ML VIAL IVP SCH (09:00)
[2018-10-02] MEDS ORDERED: METOPROLOL TARTRATE 12.5 MG TAB PO SCH (09:00)
[2018-10-02 10:10] VITALS: BMI 31.4
[2018-10-02 10:37] LABS: Glucose,Whole Blood 120 mg/dL (75-99)
[2018-10-02] MEDS: LACTATED RINGERS 1,000 ML IV SCH (12:07)
[2018-10-02 12:17] LABS: Glucose,Whole Blood 110 mg/dL (75-99)
[2018-10-02] MEDS ORDERED: MAGNESIUM HYDROXIDE 2,400 MG/10 ML CUP PO PRN (12:31)
[2018-10-02] MEDS ORDERED: BISACODYL 10 MG SUPP RECTAL PRN (12:31)
--- NOTE | 2018-10-02 13:01 | P.PN ---
Subjective Progress Note Date: 10/02/18 Principal diagnosis: Status post mitral valve repair postoperative day #1 This is a 58-year-old gentleman who follows with Dr. Oswald as his primary care physician. He has a history of hyperlipidemia and chronic and ongoing tobacco dependence at 1 pack per day. He was found to have a systolic ejection murmur on his screening exam and was referred for two-dimensional echocardiogram. He had one back on 05/20/2018 that showed evidence of preserved left ventricular systolic function, severe mitral valve regurgitation from posterior leaflet prolapse/flail. The patient had been asymptomatic at that time. No dyspnea on exertion, palpitations or chest pain. FELIZ August 15 2018 confirmed severe mitral regurgitation secondary to the prolapsing posterior mitral leaflet. Preserved left ventricular systolic function of 55-60 %. Cardiac catheterization revealed nonobstructive coronary artery disease. He was admitted early this morning for an elective mitral valve repair which was performed by Dr. Ward. He is seen today in the ICU immediately postoperatively. He remains intubated and on the mechanical ventilator to SIMV mode of 12, volume 550, FiO2 100% and a PEEP of 5. Is currently on propofol at 40 mcg/kg/m. Initially on norepinephrine currently on hold. Systolic blood pressure in the 110's with a diastolic pressure in the 60s. Mean arterial pressure greater than 60. PA pressure 34/12. Cardiac output 6. Cardiac index 3.1. Split mediastinal and right pleural chest tubes are in place. Chest x- ray was reviewed with Dr. Worrell. Currently no significant abnormalities. Right IJ [place]-Brian catheter in place. Temporary pacemaker wires in place. Glucose 131. Other labs pending. 2 units of packed red blood cells are pending. 2 units of platelets available. Patient was reevaluated today on 10/02/2018, he was extubated shortly after he arrived to the ICU. Tolerated the extubation well, patient is doing quite well today. Relatively asymptomatic, in no distress, cooperative, denies any specific complaints, using his incentive spirometry. Chest x-ray is reassuring , minimal atelectasis at the bases. No evidence of congestive heart failure. Labs were relatively unremarkable and all were reviewed. Objective - Vital Signs Vital signs: Vital Signs Temp 98.8 F 10/02/18 12:00 Pulse 74 10/02/18 12:00 Resp 24 10/02/18 12:00 BP 110/79 10/02/18 12:00 Pulse Ox 91 L 10/02/18 12:00 Intake & Output 10/01/18 10/02/18 10/02/18 18:59 06:59 18:59 Intake Total 636.194 4691.285 549.239 Output Total 2685 839 130 Balance -2411.062 892.285 419.239 Weight 96.7 kg 96.7 kg Intake: IV 107 1638 286 ACETAMINOPHEN IV (For NPO 100 ) 1,000 mg In Empty Bag 1 bag @ 400 mls/hr IVPB Q6HR NOÉ Rx#:[id number] Albumin Human 5% 250 ml 500 In Empty Bag 1 bag @ 250 mls/hr IVPB Q1HR PRN Rx#: [id number] Lactated Ringers 1,000 ml 550 200 @ 50 mls/hr IV .Q20H NOÉ Rx#:[id number] cardiac output 60 380 50 pressure bag 45 108 36 Intake, IV Titration 166.938 93.285 23.239 Amount Dexmedetomidine/0.9% NaCl 2.658 (Pmx) 400 mcg In Empty Bag 1 bag @ Titrate IV . Q0M NOÉ Rx#:[id number] Insulin Regular 100 unit 4.935 43.285 23.239 In Sodium Chloride 0.9% 100 ml @ Per Protocol IV .Q0M NOÉ Rx#:[id number] Lactated Ringers 1,000 ml 150 50 @ 50 mls/hr IV .Q20H NOÉ Rx#:[id number] Propofol 1,000 mg In 9.345 Empty Bag 1 bag @ Titrate IV .Q0M NOÉ Rx#: [id number] Oral 240 Output: Chest Tube Drainage 460 314 0 mediastinal chest x2 300 300 0 right pleural 160 14 0 Urine 1025 525 130 Estimated Blood Loss 1200 Other: Voiding Method Indwelling Catheter Indwelling Catheter Indwelling Catheter ABP, PAP, CO, CI - Last Documented Arterial Blood Pressure 116/64 Pulmonary Artery Pressure 32/13 Cardiac Output 5.6 Cardiac Index 2.6 - Exam Physical Exam: Revealed a 58-year-old white male sitting in a chair, in no distress. Presently on 8 L high flow nasal cannula O2 saturation is 92%. Head: Atraumatic, normocephalic. HEENT:[Neck is supple.] [No neck masses.] [No thyromegaly.] [No JVD.] Chest: [Clear throughout, no crackles, no rhonchi, no wheezes.] Mediastinal chest tube to continuous wall suction right pleural chest tube at wall suction, minimal drainage noted Cardiac Exam: [Normal S1 and S2, no S3 gallop, no murmur.] AV epicardial pacemaker wires present. Abdomen: [Soft, nontender, no megaly, no rebound, no guarding, normal bowel sounds.] Extremities: [No clubbing, no edema, no cyanosis.] Neurological Exam: [No focal neurologic deficit.] - Labs CBC & Chem 7: 10/02/18 04:20 10/02/18 04:20 Labs: Abnormal Lab Results - Last 24 Hours (Table) 09/26/18 10/01/18 10/01/18 Range/Units 08:28 13:29 13:33 WBC (3.8-10.6) k/uL RBC (4.30-5.90) m/uL Hgb (13.0-17.5) gm/dL Hct (39.0-53.0) % Plt Count (150-450) k/uL Neutrophils # (1.3-7.7) k/uL Lymphocytes # (1.0-4.8) k/uL ABG pH 7.33 L (7.35-7.45) ABG pCO2 50 H (35-45) mmHg ABG pO2 256 H (83-108) mmHg ABG HCO3 26 H (21-25) mmol/L ABG Total CO2 28 H (19-24) mmol/L ABG O2 Saturation 99.9 H (94-97) % Sodium (137-145) mmol/L Chloride (98-107) mmol/L Creatinine (0.66-1.25) mg/dL Glucose (74-99) mg/dL POC Glucose (mg/dL) 131 H (75-99) mg/dL Calcium (8.4-10.2) mg/dL Magnesium (1.6-2.3) mg/dL ALT (21-72) U/L Total Protein (6.3-8.2) g/dL Albumin (3.5-5.0) g/dL Crossmatch See Detail 10/01/18 10/01/18 10/01/18 Range/Units 13:36 13:36 15:04 WBC (3.8-10.6) k/uL RBC 3.65 L (4.30-5.90) m/uL Hgb 11.6 L D (13.0-17.5) gm/dL Hct 34.5 L (39.0-53.0) % Plt Count 123 L (150-450) k/uL Neutrophils # (1.3-7.7) k/uL Lymphocytes # 0.8 L (1.0-4.8) k/uL ABG pH (7.35-7.45) ABG pCO2 (35-45) mmHg ABG pO2 (83-108) mmHg ABG HCO3 (21-25) mmol/L ABG Total CO2 (19-24) mmol/L ABG O2 Saturation (94-97) % Sodium (137-145) mmol/L Chloride 109 H (98-107) mmol/L Creatinine 0.64 L (0.66-1.25) mg/dL Glucose 117 H (74-99) mg/dL POC Glucose (mg/dL) 131 H (75-99) mg/dL Calcium 8.1 L (8.4-10.2) mg/dL Magnesium 2.4 H (1.6-2.3) mg/dL ALT 75 H (21-72) U/L Total Protein 4.8 L (6.3-8.2) g/dL Albumin 2.8 L (3.5-5.0) g/dL Crossmatch 10/01/18 10/01/18 10/01/18 Range/Units 15:54 16:00 17:03 WBC 11.9 H (3.8-10.6) k/uL RBC 4.13 L (4.30-5.90) m/uL Hgb (13.0-17.5) gm/dL Hct (39.0-53.0) % Plt Count (150-450) k/uL Neutrophils # 9.9 H (1.3-7.7) k/uL Lymphocytes # (1.0-4.8) k/uL ABG pH (7.35-7.45) ABG pCO2 (35-45) mmHg ABG pO2 (83-108) mmHg ABG HCO3 (21-25) mmol/L ABG Total CO2 (19-24) mmol/L ABG O2 Saturation (94-97) % Sodium (137-145) mmol/L Chloride (98-107) mmol/L Creatinine (0.66-1.25) mg/dL Glucose (74-99) mg/dL POC Glucose (mg/dL) 161 H 164 H (75-99) mg/dL Calcium (8.4-10.2) mg/dL Magnesium (1.6-2.3) mg/dL ALT (21-72) U/L Total Protein (6.3-8.2) g/dL Albumin (3.5-5.0) g/dL Crossmatch 10/01/18 10/01/18 10/01/18 Range/Units 18:20 19:02 19:02 WBC (3.8-10.6) k/uL RBC 4.08 L (4.30-5.90) m/uL Hgb 12.7 L (13.0-17.5) gm/dL Hct 38.2 L (39.0-53.0) % Plt Count (150-450) k/uL Neutrophils # 9.3 H (1.3-7.7) k/uL Lymphocytes # 0.5 L (1.0-4.8) k/uL ABG pH (7.35-7.45) ABG pCO2 (35-45) mmHg ABG pO2 (83-108) mmHg ABG HCO3 (21-25) mmol/L ABG Total CO2 (19-24) mmol/L ABG O2 Saturation (94-97) % Sodium (137-145) mmol/L Chloride (98-107) mmol/L Creatinine (0.66-1.25) mg/dL Glucose (74-99) mg/dL POC Glucose (mg/dL) 146 H 145 H (75-99) mg/dL Calcium (8.4-10.2) mg/dL Magnesium (1.6-2.3) mg/dL ALT (21-72) U/L Total Protein (6.3-8.2) g/dL Albumin (3.5-5.0) g/dL Crossmatch 10/01/18 10/01/18 10/01/18 Range/Units 20:15 21:07 22:06 WBC (3.8-10.6) k/uL RBC (4.30-5.90) m/uL Hgb (13.0-17.5) gm/dL Hct (39.0-53.0) % Plt Count (150-450) k/uL Neutrophils # (1.3-7.7) k/uL Lymphocytes # (1.0-4.8) k/uL ABG pH (7.35-7.45) ABG pCO2 (35-45) mmHg ABG pO2 (83-108) mmHg ABG HCO3 (21-25) mmol/L ABG Total CO2 (19-24) mmol/L ABG O2 Saturation (94-97) % Sodium (137-145) mmol/L Chloride (98-107) mmol/L Creatinine (0.66-1.25) mg/dL Glucose (74-99) mg/dL POC Glucose (mg/dL) 143 H 154 H 138 H (75-99) mg/dL Calcium (8.4-10.2) mg/dL Magnesium (1.6-2.3) mg/dL ALT (21-72) U/L Total Protein (6.3-8.2) g/dL Albumin (3.5-5.0) g/dL Crossmatch 10/01/18 10/02/18 10/02/18 Range/Units 22:57 00:05 00:57 WBC (3.8-10.6) k/uL RBC (4.30-5.90) m/uL Hgb (13.0-17.5) gm/dL Hct (39.0-53.0) % Plt Count (150-450) k/uL Neutrophils # (1.3-7.7) k/uL Lymphocytes # (1.0-4.8) k/uL ABG pH (7.35-7.45) ABG pCO2 (35-45) mmHg ABG pO2 (83-108) mmHg ABG HCO3 (21-25) mmol/L ABG Total CO2 (19-24) mmol/L ABG O2 Saturation (94-97) % Sodium (137-145) mmol/L Chloride (98-107) mmol/L Creatinine (0.66-1.25) mg/dL Glucose (74-99) mg/dL POC Glucose (mg/dL) 135 H 128 H 125 H (75-99) mg/dL Calcium (8.4-10.2) mg/dL Magnesium (1.6-2.3) mg/dL ALT (21-72) U/L Total Protein (6.3-8.2) g/dL Albumin (3.5-5.0) g/dL Crossmatch 10/02/18 10/02/18 10/02/18 Range/Units 02:02 03:03 04:17 WBC (3.8-10.6) k/uL RBC (4.30-5.90) m/uL Hgb (13.0-17.5) gm/dL Hct (39.0-53.0) % Plt Count (150-450) k/uL Neutrophils # (1.3-7.7) k/uL Lymphocytes # (1.0-4.8) k/uL ABG pH (7.35-7.45) ABG pCO2 (35-45) mmHg ABG pO2 (83-108) mmHg ABG HCO3 (21-25) mmol/L ABG Total CO2 (19-24) mmol/L ABG O2 Saturation (94-97) % Sodium (137-145) mmol/L Chloride (98-107) mmol/L Creatinine (0.66-1.25) mg/dL Glucose (74-99) mg/dL POC Glucose (mg/dL) 127 H 132 H 123 H (75-99) mg/dL Calcium (8.4-10.2) mg/dL Magnesium (1.6-2.3) mg/dL ALT (21-72) U/L Total Protein (6.3-8.2) g/dL Albumin (3.5-5.0) g/dL Crossmatch 10/02/18 10/02/18 10/02/18 Range/Units 04:20 04:20 05:28 WBC (3.8-10.6) k/uL RBC 3.60 L (4.30-5.90) m/uL Hgb 11.0 L (13.0-17.5) gm/dL Hct 33.8 L (39.0-53.0) % Plt Count (150-450) k/uL Neutrophils # (1.3-7.7) k/uL Lymphocytes # 0.8 L (1.0-4.8) k/uL ABG pH (7.35-7.45) ABG pCO2 (35-45) mmHg ABG pO2 (83-108) mmHg ABG HCO3 (21-25) mmol/L ABG Total CO2 (19-24) mmol/L ABG O2 Saturation (94-97) % Sodium 136 L (137-145) mmol/L Chloride (98-107) mmol/L Creatinine 0.57 L (0.66-1.25) mg/dL Glucose 121 H (74-99) mg/dL POC Glucose (mg/dL) 126 H (75-99) mg/dL Calcium 8.3 L (8.4-10.2) mg/dL Magnesium (1.6-2.3) mg/dL ALT (21-72) U/L Total Protein 5.3 L (6.3-8.2) g/dL Albumin 3.2 L (3.5-5.0) g/dL Crossmatch 10/02/18 10/02/18 10/02/18 Range/Units 06:06 07:11 08:05 WBC (3.8-10.6) k/uL RBC (4.30-5.90) m/uL Hgb (13.0-17.5) gm/dL Hct (39.0-53.0) % Plt Count (150-450) k/uL Neutrophils # (1.3-7.7) k/uL Lymphocytes # (1.0-4.8) k/uL ABG pH (7.35-7.45) ABG pCO2 (35-45) mmHg ABG pO2 (83-108) mmHg ABG HCO3 (21-25) mmol/L ABG Total CO2 (19-24) mmol/L ABG O2 Saturation (94-97) % Sodium (137-145) mmol/L Chloride (98-107) mmol/L Creatinine (0.66-1.25) mg/dL Glucose (74-99) mg/dL POC Glucose (mg/dL) 131 H 139 H 127 H (75-99) mg/dL Calcium (8.4-10.2) mg/dL Magnesium (1.6-2.3) mg/dL ALT (21-72) U/L Total Protein (6.3-8.2) g/dL Albumin (3.5-5.0) g/dL Crossmatch 10/02/18 10/02/18 Range/Units 10:26 12:05 WBC (3.8-10.6) k/uL RBC (4.30-5.90) m/uL Hgb (13.0-17.5) gm/dL Hct (39.0-53.0) % Plt Count (150-450) k/uL Neutrophils # (1.3-7.7) k/uL Lymphocytes # (1.0-4.8) k/uL ABG pH (7.35-7.45) ABG pCO2 (35-45) mmHg ABG pO2 (83-108) mmHg ABG HCO3 (21-25) mmol/L ABG Total CO2 (19-24) mmol/L ABG O2 Saturation (94-97) % Sodium (137-145) mmol/L Chloride (98-107) mmol/L Creatinine (0.66-1.25) mg/dL Glucose (74-99) mg/dL POC Glucose (mg/dL) 120 H 110 H (75-99) mg/dL Calcium (8.4-10.2) mg/dL Magnesium (1.6-2.3) mg/dL ALT (21-72) U/L Total Protein (6.3-8.2) g/dL Albumin (3.5-5.0) g/dL Crossmatch Assessment and Plan Assessment: #1 Severe mitral regurgitation secondary to prolapsing of the P2 component of the posterior mitral leaflet. Status post mitral valve repair, postoperative day #1. Patient was extubated within an hour after arrival to the ICU, and tolerated the extubation well. #2 Nonobstructive coronary artery disease. #3 Hyperlipidemia. #4 Chronic and ongoing tobacco dependence. #5 postoperative bibasilar atelectasis, expected findings after such surgery. Recommendation: Continue incentive spirometry, ambulate, continue bronchodilators, continue oxygen at high flow nasal cannula for now and titrate accordingly, educated about the importance of smoking cessation, continue GI and DVT prophylaxis, continue to monitor in the ICU especially with his O2 saturation be marginal on high flow nasal cannula. We'll continue to follow. Discussed his condition with him and his son at bedside. Time with Patient: Less than 30
[2018-10-02 14:42] LABS: Glucose,Whole Blood 139 mg/dL (75-99)
[2018-10-02] MEDS: CLEVIDIPINE BUTYRATE 25 MG in EMPTY BAG 1 BAG IV SCH (16:02)
[2018-10-02 16:42] LABS: Glucose,Whole Blood 113 mg/dL (75-99)
[2018-10-02 18:11] LABS: Glucose,Whole Blood 119 mg/dL (75-99)
[2018-10-02] MEDS: SENNOSIDES-DOCUSATE SODIUM 1 EACH TAB PO SCH ×2 (20:53→20:58)
[2018-10-02 20:54] LABS: Glucose,Whole Blood 103 mg/dL (75-99)
[2018-10-02] MEDS: HYDROcodone/APAP 5-325MG 1 EACH TAB PO PRN (20:54)
--- NOTE | 2018-10-02 21:53 | XR ---
EXAMINATION: XR chest 1V portable DATE AND TIME: 10/02/2018 8:48 PM CLINICAL INDICATION: PHH; Low saturations TECHNIQUE: AP portable upright COMPARISON: 10/02/2018 at 6:11 AM FINDINGS: The right IJ introducer sheath tip is superimposed over the expected position of the uppermost SVC. S [place]-Brian catheter has been removed since the prior study. Right mediastinal drain and EKG leads and sternal sutures and mediastinal clips noted. The upper and mid lungs are clear bilaterally. No pneumothorax. The hemidiaphragms are elevated, particularly on the right. There is at least partial right lower lob e atelectasis and right middle lobe atelectasis. Concurrent bronchopneumonia can be clinically consid ered. On the left, the lung is primarily clear but there is added retrocardiac opacity consistent wit h partial left lower lobe airlessness. IMPRESSION: SIMILAR OVERALL LUNG INFLATION PATTERN WITH REDEMONSTRATED BIBASILAR AIRLESSNESS PATTERN, GREATER ON THE RIGHT; NO NEW PROCESS.
[2018-10-02 22:12] LABS: Glucose,Whole Blood 125 mg/dL (75-99)
[2018-10-02] MEDS: INSULIN REGULAR 100 UNIT in SODIUM CHLORIDE 0.9% 100 ML IV SCH (22:50)
[2018-10-02] MEDS ORDERED: HYDROcodone/APAP 5-325MG 1 EACH TAB PO PRN (23:00)
[2018-10-02 23:21] LABS: Glucose,Whole Blood 116 mg/dL (75-99)
[2018-10-03 00:04] LABS: Glucose,Whole Blood 111 mg/dL (75-99)
[2018-10-03 01:24] LABS: Glucose,Whole Blood 110 mg/dL (75-99)
[2018-10-03 02:34] LABS: Glucose,Whole Blood 117 mg/dL (75-99)
[2018-10-03] MEDS: HYDROcodone/APAP 5-325MG 1 EACH TAB PO PRN ×3 (02:41→11:12)
[2018-10-03] MEDS: HEPARIN SODIUM,PORCINE 5,000 UNIT/ML 1 ML VIAL SQ SCH ×3 (04:19→17:00)
[2018-10-03] MEDS: KETOROLAC 30 MG/ML 1 ML VIAL IVP SCH ×3 (05:14→17:00)
[2018-10-03 05:25] LABS: Glucose,Whole Blood 116 mg/dL (75-99)
[2018-10-03 05:54] LABS: Basophils % (A) 0 %; Eosinophils % (A) 0 %; HCT 30.9 % (39.0-53.0); HGB 10.5 gm/dL (13.0-17.5); Lymphocytes % (A) 10 %; MCHC 34.1 g/dL (31.0-37.0); MCV 93.8 fL (80.0-100.0); Mean Platelet Volume 7.2; Monocytes # (A) 0.6 k/uL (0-1.0); Monocytes % (A) 6 %; Neutrophils % (A) 82 %; Platelet Count 144 k/uL (150-450); RBC 3.29 m/uL (4.30-5.90); RDW 13.6 % (11.5-15.5); WBC 9.8 k/uL (3.8-10.6)
[2018-10-03 06:08] LABS: Ionized Calcium 4.8 mg/dL (4.5-5.3)
[2018-10-03 06:29] LABS: ALT 52 U/L (21-72); AST 48 U/L (17-59); Albumin 3.6 g/dL (3.5-5.0); Alkaline Phosphatase 35 U/L (38-126); Anion Gap 10 mmol/L; Blood Urea Nitrogen 23 mg/dL (9-20); Calcium 8.8 mg/dL (8.4-10.2); Carbon Dioxide 23 mmol/L (22-30); Chloride 104 mmol/L (98-107); Glucose 112 mg/dL (74-99); Magnesium 2.4 mg/dL (1.6-2.3); Potassium 4.4 mmol/L (3.5-5.1); Sodium 137 mmol/L (137-145); Total Protein 5.8 g/dL (6.3-8.2)
[2018-10-03] MEDS: LACTATED RINGERS 1,000 ML IV SCH (07:15)
--- NOTE | 2018-10-03 07:22 | P.PN ---
Subjective Progress Note Date: 10/03/18 Principal diagnosis: Status post mitral valve repair This is a pleasant 58-year-old gentleman who was diagnosed recently with severe symptomatic mitral regurgitation. He underwent the day before yesterday successful mitral valve repair with annuloplasty. This is postoperative elevation day #2. The patient is feeling overall better. He remains hemodynamically stable with marginally low blood pressure. He remains in normal sinus mechanism. The urine output is low and he might benefit from small dose of IV Lasix since his CVP is elevated. He continues to be on aspirin, statin, as well as metoprolol. Objective - Vital Signs Vital signs: Vital Signs Temp 98.5 F 10/03/18 00:00 Pulse 80 10/03/18 07:00 Resp 39 H 10/03/18 07:00 BP 110/79 10/03/18 06:00 Pulse Ox 93 L 10/03/18 07:00 Intake & Output 10/02/18 10/03/18 10/03/18 18:59 06:59 18:59 Intake Total 1353.239 280.700 26 Output Total 520 580 140 Balance 833.239 -299.300 -114 Weight 96.7 kg Intake: IV 850 260 26 ACETAMINOPHEN IV (For NPO 100 ) 1,000 mg In Empty Bag 1 bag @ 400 mls/hr IVPB Q6HR NOÉ Rx#:[id number] Lactated Ringers 1,000 ml 610 200 20 @ 20 mls/hr IV .Q24H NOÉ Rx#:[id number] cardiac output 50 pressure bag 90 60 6 Intake, IV Titration 23.239 20.700 Amount Insulin Regular 100 unit 23.239 20.700 In Sodium Chloride 0.9% 100 ml @ Per Protocol IV .Q0M NOÉ Rx#:[id number] Oral 480 Output: Chest Tube Drainage 20 200 100 mediastinal chest x2 20 180 60 right pleural 0 20 40 Urine 500 380 40 Other: Voiding Method Indwelling Catheter Indwelling Catheter ABP, PAP, CO, CI - Last Documented Arterial Blood Pressure 132/65 Pulmonary Artery Pressure 32/13 Cardiac Output 5.6 Cardiac Index 2.6 - Constitutional General appearance: Present: no acute distress - Respiratory Respiratory: bilateral: CTA - Cardiovascular Rhythm: regular Heart sounds: normal: S1, S2 - Labs CBC & Chem 7: 10/03/18 05:15 10/03/18 05:15 Labs: Abnormal Lab Results - Last 24 Hours (Table) 10/02/18 10/02/18 10/02/18 Range/Units 07:11 08:05 10:26 RBC (4.30-5.90) m/uL Hgb (13.0-17.5) gm/dL Hct (39.0-53.0) % Plt Count (150-450) k/uL Neutrophils # (1.3-7.7) k/uL BUN (9-20) mg/dL Creatinine (0.66-1.25) mg/dL Glucose (74-99) mg/dL POC Glucose (mg/dL) 139 H 127 H 120 H (75-99) mg/dL Magnesium (1.6-2.3) mg/dL Alkaline Phosphatase (38-126) U/L Total Protein (6.3-8.2) g/dL 10/02/18 10/02/18 10/02/18 Range/Units 12:05 14:30 16:30 RBC (4.30-5.90) m/uL Hgb (13.0-17.5) gm/dL Hct (39.0-53.0) % Plt Count (150-450) k/uL Neutrophils # (1.3-7.7) k/uL BUN (9-20) mg/dL Creatinine (0.66-1.25) mg/dL Glucose (74-99) mg/dL POC Glucose (mg/dL) 110 H 139 H 113 H (75-99) mg/dL Magnesium (1.6-2.3) mg/dL Alkaline Phosphatase (38-126) U/L Total Protein (6.3-8.2) g/dL 10/02/18 10/02/18 10/02/18 Range/Units 18:00 20:43 22:01 RBC (4.30-5.90) m/uL Hgb (13.0-17.5) gm/dL Hct (39.0-53.0) % Plt Count (150-450) k/uL Neutrophils # (1.3-7.7) k/uL BUN (9-20) mg/dL Creatinine (0.66-1.25) mg/dL Glucose (74-99) mg/dL POC Glucose (mg/dL) 119 H 103 H 125 H (75-99) mg/dL Magnesium (1.6-2.3) mg/dL Alkaline Phosphatase (38-126) U/L Total Protein (6.3-8.2) g/dL 10/02/18 10/02/18 10/03/18 Range/Units 23:09 23:52 01:09 RBC (4.30-5.90) m/uL Hgb (13.0-17.5) gm/dL Hct (39.0-53.0) % Plt Count (150-450) k/uL Neutrophils # (1.3-7.7) k/uL BUN (9-20) mg/dL Creatinine (0.66-1.25) mg/dL Glucose (74-99) mg/dL POC Glucose (mg/dL) 116 H 111 H 110 H (75-99) mg/dL Magnesium (1.6-2.3) mg/dL Alkaline Phosphatase (38-126) U/L Total Protein (6.3-8.2) g/dL 10/03/18 10/03/18 10/03/18 Range/Units 02:22 05:12 05:15 RBC (4.30-5.90) m/uL Hgb (13.0-17.5) gm/dL Hct (39.0-53.0) % Plt Count (150-450) k/uL Neutrophils # (1.3-7.7) k/uL BUN 23 H (9-20) mg/dL Creatinine 0.63 L (0.66-1.25) mg/dL Glucose 112 H (74-99) mg/dL POC Glucose (mg/dL) 117 H 116 H (75-99) mg/dL Magnesium 2.4 H (1.6-2.3) mg/dL Alkaline Phosphatase 35 L (38-126) U/L Total Protein 5.8 L (6.3-8.2) g/dL 10/03/18 Range/Units 05:15 RBC 3.29 L (4.30-5.90) m/uL Hgb 10.5 L (13.0-17.5) gm/dL Hct 30.9 L (39.0-53.0) % Plt Count 144 L (150-450) k/uL Neutrophils # 8.0 H (1.3-7.7) k/uL BUN (9-20) mg/dL Creatinine (0.66-1.25) mg/dL Glucose (74-99) mg/dL POC Glucose (mg/dL) (75-99) mg/dL Magnesium (1.6-2.3) mg/dL Alkaline Phosphatase (38-126) U/L Total Protein (6.3-8.2) g/dL Assessment and Plan Assessment: Assessment #1 severe symptomatic mitral regurgitation #2 status post mitral valve repair with annuloplasty #3 mild nonobstructive coronary artery disease Plan #1 continue the current medical regimen including aspirin, metoprolol, and statin #2 continue monitor the rhythm. The patient has been maintaining normal sinus mechanism #3 continue monitor the kidney function as well as electrolytes as well as hemoglobin #4 follow-up with the patient.
[2018-10-03 07:24] LABS: Glucose,Whole Blood 112 mg/dL (75-99)
[2018-10-03] MEDS: METOPROLOL TARTRATE 25 MG TAB PO SCH ×2 (08:17→21:08)
[2018-10-03] MEDS: PANTOPRAZOLE 40 MG TABLET PO SCH (08:17)
[2018-10-03] MEDS: ASPIRIN 325 MG TAB PO SCH (08:18)
[2018-10-03] MEDS: ATORVASTATIN 40 MG TAB PO SCH (08:18)
[2018-10-03] MEDS: MUPIROCIN 2% OINT 22 GM TUBE NASAL SCH ×2 (08:21→21:09)
--- NOTE | 2018-10-03 08:32 | P.PN ---
Subjective Progress Note Date: 10/03/18 Principal diagnosis: Severe mitral valve regurgitation from P2 prolapse. Hyperlipidemia. Previous tobacco dependence with preoperative FEV1 92% of predicted. Family history of premature coronary artery disease with father at 52 years old from CAD. Obesity. POD #2 complex mitral valve repair with triangular resection of P2 and posterior annuloplasty using a #30 AnnuloFlex posterior ring. Exclusion of the left atrial appendage using a 40 mm AtriClip. Intraoperative transesophageal echocardiogram and epi-aortic scanning. Postoperative acute blood loss anemia, an expected outcome of surgery. The patient is currently sitting up in a recliner in no acute distress. Does complain of pain at his mediastinal chest tube sites which is mostly controlled with current pain medication regimen. Denies shortness of breath. He remains hemodynamically stable on no inotropes or pressors in normal sinus rhythm. No new complaints. He did ambulate in the room yesterday once but lacks motivation for increased movement. FiO2 has been titrated up secondary to low oxygen saturation in the mid 80s. Objective - Vital Signs Vital signs: Vital Signs Temp 98.5 F 10/03/18 00:00 Pulse 80 10/03/18 07:00 Resp 39 H 10/03/18 07:00 BP 110/79 10/03/18 06:00 Pulse Ox 93 L 10/03/18 07:00 Intake & Output 10/02/18 10/03/18 10/03/18 18:59 06:59 18:59 Intake Total 1353.239 280.700 26 Output Total 520 580 140 Balance 833.239 -299.300 -114 Weight 96.7 kg Intake: IV 850 260 26 ACETAMINOPHEN IV (For NPO 100 ) 1,000 mg In Empty Bag 1 bag @ 400 mls/hr IVPB Q6HR NOÉ Rx#:[id number] Lactated Ringers 1,000 ml 610 200 20 @ 20 mls/hr IV .Q24H NOÉ Rx#:[id number] cardiac output 50 pressure bag 90 60 6 Intake, IV Titration 23.239 20.700 Amount Insulin Regular 100 unit 23.239 20.700 In Sodium Chloride 0.9% 100 ml @ Per Protocol IV .Q0M NOÉ Rx#:[id number] Oral 480 Output: Chest Tube Drainage 20 200 100 mediastinal chest x2 20 180 60 right pleural 0 20 40 Urine 500 380 40 Other: Voiding Method Indwelling Catheter Indwelling Catheter ABP, PAP, CO, CI - Last Documented Arterial Blood Pressure 132/65 Pulmonary Artery Pressure 32/13 Cardiac Output 5.6 Cardiac Index 2.6 - Constitutional General appearance: Present: cooperative, no acute distress, obese - Respiratory Details: Lungs sounds diminished bilaterally. Respirations even, nonlabored. Currently on 15 L high flow nasal cannula with oxygen saturation 94%. Able to achieve 500 -750 and his incentive spirometer. Weak cough. Mediastinal chest tube to continuous wall suction, 100 mL serosanguineous drainage overnight, 120 mL in the last 24 hours. Right pleural chest tube to continuous wall suction, no drainage overnight, 240 mL in the last 24 hours. No air leaks present. - Cardiovascular Details: S1, S2 present. Regular rate and rhythm, sinus rhythm with occasional PACs on telemetry. Sternum stable. A/V epicardial pacemaker wires present, connected to generator, VVI mode with backup rate 50 bpm. Palpable peripheral pulses bilaterally. No edema present. No calf pain or tenderness noted. Right internal jugular Cordis, left radial arterial line present. Heart hugger in place with patient demonstrating appropriate use. Antiembolism stockings, SCDs present. - Gastrointestinal Gastrointestinal Comment(s): Abdomen soft, nontender, nondistended. Active bowel sounds present 4 quadrants. Tolerating diet. Positive flatus, negative bowel movement. - Genitourinary Genitourinary Comment(s): Naranjo present draining clear, yellow urine. Output overnight 25-35 mL per hour , 225 mL last 8 hours. - Integumentary Integumentary Comment(s): Skin is warm and dry with evidence of good perfusion. Anterior chest incision well approximated and covered with dry intact dressing. - Neurologic Neurologic: Present: CNII-XII intact - Musculoskeletal Musculoskeletal: Present: gait normal, strength equal bilaterally - Psychiatric Psychiatric: Present: A&O x's 3, appropriate affect, intact judgment & insight - Allied health notes Allied health notes reviewed: nursing - Labs CBC & Chem 7: 10/03/18 05:15 10/03/18 05:15 Labs: Abnormal Lab Results - Last 24 Hours (Table) 10/02/18 10/02/18 10/02/18 Range/Units 10:26 12:05 14:30 RBC (4.30-5.90) m/uL Hgb (13.0-17.5) gm/dL Hct (39.0-53.0) % Plt Count (150-450) k/uL Neutrophils # (1.3-7.7) k/uL BUN (9-20) mg/dL Creatinine (0.66-1.25) mg/dL Glucose (74-99) mg/dL POC Glucose (mg/dL) 120 H 110 H 139 H (75-99) mg/dL Magnesium (1.6-2.3) mg/dL Alkaline Phosphatase (38-126) U/L Total Protein (6.3-8.2) g/dL 10/02/18 10/02/18 10/02/18 Range/Units 16:30 18:00 20:43 RBC (4.30-5.90) m/uL Hgb (13.0-17.5) gm/dL Hct (39.0-53.0) % Plt Count (150-450) k/uL Neutrophils # (1.3-7.7) k/uL BUN (9-20) mg/dL Creatinine (0.66-1.25) mg/dL Glucose (74-99) mg/dL POC Glucose (mg/dL) 113 H 119 H 103 H (75-99) mg/dL Magnesium (1.6-2.3) mg/dL Alkaline Phosphatase (38-126) U/L Total Protein (6.3-8.2) g/dL 10/02/18 10/02/18 10/02/18 Range/Units 22:01 23:09 23:52 RBC (4.30-5.90) m/uL Hgb (13.0-17.5) gm/dL Hct (39.0-53.0) % Plt Count (150-450) k/uL Neutrophils # (1.3-7.7) k/uL BUN (9-20) mg/dL Creatinine (0.66-1.25) mg/dL Glucose (74-99) mg/dL POC Glucose (mg/dL) 125 H 116 H 111 H (75-99) mg/dL Magnesium (1.6-2.3) mg/dL Alkaline Phosphatase (38-126) U/L Total Protein (6.3-8.2) g/dL 10/03/18 10/03/18 10/03/18 Range/Units 01:09 02:22 05:12 RBC (4.30-5.90) m/uL Hgb (13.0-17.5) gm/dL Hct (39.0-53.0) % Plt Count (150-450) k/uL Neutrophils # (1.3-7.7) k/uL BUN (9-20) mg/dL Creatinine (0.66-1.25) mg/dL Glucose (74-99) mg/dL POC Glucose (mg/dL) 110 H 117 H 116 H (75-99) mg/dL Magnesium (1.6-2.3) mg/dL Alkaline Phosphatase (38-126) U/L Total Protein (6.3-8.2) g/dL 10/03/18 10/03/18 10/03/18 Range/Units 05:15 05:15 07:13 RBC 3.29 L (4.30-5.90) m/uL Hgb 10.5 L (13.0-17.5) gm/dL Hct 30.9 L (39.0-53.0) % Plt Count 144 L (150-450) k/uL Neutrophils # 8.0 H (1.3-7.7) k/uL BUN 23 H (9-20) mg/dL Creatinine 0.63 L (0.66-1.25) mg/dL Glucose 112 H (74-99) mg/dL POC Glucose (mg/dL) 112 H (75-99) mg/dL Magnesium 2.4 H (1.6-2.3) mg/dL Alkaline Phosphatase 35 L (38-126) U/L Total Protein 5.8 L (6.3-8.2) g/dL - Imaging and Cardiology Chest x-ray: image reviewed Assessment and Plan (1) Severe mitral valve regurgitation Current Visit: Yes Status: Chronic Code(s): I34.0 - NONRHEUMATIC MITRAL ( VALVE) INSUFFICIENCY SNOMED Code(s): 26576898 (2) Hyperlipidemia Current Visit: Yes Status: Chronic Code(s): E78.5 - HYPERLIPIDEMIA, UNSPECIFIED SNOMED Code(s): 42224320 (3) Tobacco dependence in remission Current Visit: No Status: Resolved Code(s): F17.201 - NICOTINE DEPENDENCE, UNSPECIFIED, IN REMISSION SNOMED Code(s): 594111056 (4) Obesity (BMI 30.0-34.9) Current Visit: Yes Status: Chronic Code(s): E66.9 - OBESITY, UNSPECIFIED SNOMED Code(s): 233114000858506 (5) Family history of coronary artery disease Current Visit: Yes Status: Chronic Code(s): Z82.49 - FAMILY HX OF ISCHEM HEART DIS AND OTH DIS OF THE CIRC SYS SNOMED Code(s): 665383839 Plan: 1. Continue aspirin, statin, beta sophie therapy. Will increase beta sophie therapy as tolerated. 2. Wean O2 as tolerated. Encourage incentive spirometry 10 times every hour while awake. 3. Encourage continued smoking cessation. 4. Likely will administer IV Lasix today. 5. Increase activity, ambulate as tolerated. PT/OT/cardiac rehab following. 6. Bronchodilators per pulmonology. 7. Continue pain control with current medication regimen. 8. Insulin management per primary care service. 9. GI prophylaxis with Protonix, DVT prophylaxis with subcu heparin, SCDs. 10. Will monitor daily labs and x-rays. Electrolyte replacement per protocol. 11. Will discontinue chest tubes, Cordis, arterial line, Naranjo catheter. Bladder scan every 6 hours, may straight cath for greater than [address] transfer orders for 3 S. cardiac stepdown unit. 13. More recommendations to follow. Time with Patient: Greater than 30
[2018-10-03] MEDS: IPRATROPIUM-ALBUTEROL 3 ML NEB INHALATION SCH ×4 (08:37→20:50)
--- NOTE | 2018-10-03 08:45 | CONS ---
CONSULTATION DATE OF CONSULTATION: 10/02/2018 REASON FOR CONSULTATION: Medical management requested by Dr. Ward. CONSULTATION: This is a 58-year-old patient who follows with Dr. Oswald. Who was part of a workup of a murmur, was worked up by Cardiology. Patient was found to have severe mitral valve regurgitation from P2 prolapse and did undergo posterior annuloplasty with a ring placement, excision of the left atrial appendage. Patient was extubated 2 hours following the procedure. Patient has 2 mediastinal and 2 chest tubes and one pleural tube. Patient has been on 15 L of oxygen. Telemetry shows sinus rhythm. Up in chair, on clear liquids, awake. Patient's other medical conditions include hyperlipidemia, nicotine dependence. REVIEW OF SYSTEMS: CONSTITUTIONAL: Tired. HEENT: None. RESPIRATORY: Short of breath. CARDIOVASCULAR: As above GASTROINTESTINAL: None. GENITOURINARY: None. MUSCULOSKELETAL none. DERMATOLOGICAL: None. HEMATOLOGICAL: None. LYMPHATIC: None. PSYCHIATRY: None. NEUROLOGICAL: None. PAST MEDICAL HISTORY: Hyperlipidemia, mitral valve regurgitation, severe. PAST SURGICAL HISTORY: Appendectomy, cardiac catheterization, tonsillectomy, left hand surgery. SOCIAL HISTORY: Patient smoked for about 40 years, 3/4 pack a day, stopped smoking about 2 months ago. . Patient is employed. FAMILY HISTORY: Coronary artery disease. HOME MEDICATIONS: Mupirocin 1% nasal b.i.d., Lipitor 20 mg a day. ALLERGIES: None. PHYSICAL EXAMINATION: Temperature 98.8, pulse 74, respiration 20, blood pressure 110/79, pulse ox 91% on 8-10 L. GENERAL APPEARANCE: Well built, BMI 31.8. Sitting up in a chair. Nasal cannula in place. EYES: Pupils equal, conjunctivae are pale. HEENT: External appearance of nose and ears normal, oral cavity normal. NECK: JVD unable to assess. Mass not palpable. RESPIRATORY: Effort increased. LUNGS: Diminished breath sounds. CARDIOVASCULAR: First and second sounds are normal. No edema. ABDOMEN: Soft, nontender. Liver and spleen not palpable. LYMPHATIC: No lymph node palpable in neck or axillae. PSYCHIATRY: Alert and oriented x3. Mood and affect normal. Chest wall has got 3 chest tubes. INVESTIGATIONS: Blood work shows potassium 4.1, BUN 12, creatinine 0.64, albumin 2.8, hemoglobin was 12.7. ASSESSMENT: 1. Severe mitral regurgitation followed by repairing placement. 2. La xed atrial appendage excision. 3. Acute hypoxic respiratory failure from possible significant atelectasis. 4. Hyperlipidemia. 5. Hypoalbuminemia, probably an acute phase reactant. 6. Mild leukocytosis, likely reactive from surgery, no evidence of infection. PLAN: Patient told to use the inspiratory spirometer, which he has been using rather well, has been on oxygen. Other medication and treatment plan is to continue. I did review the patient's chest x-ray. It is a portable film, some cardiomegaly. The patient is on bronchodilators, IV Amiodarone, Lipitor, also was on clevidipine, IV amiodarone. Thank you, Dr. Ward. MMJOSIEL / LUISN: [id number] /
[2018-10-03] MEDS ORDERED: FUROSEMIDE 10 MG/ML 2 ML VIAL IV ONE (08:55)
--- NOTE | 2018-10-03 09:08 | XR ---
EXAMINATION TYPE: XR chest 1V portable DATE OF EXAM: 10/03/2018 COMPARISON: 10/02/2018 HISTORY: Shortness of breath TECHNIQUE: Single frontal view of the chest is obtained. FINDINGS: Bilateral consolidation and pleural effusion noted. Chest tubes and vascular sheath stable . Postsurgical changes noted. No pneumothorax. Heart is enlarged. IMPRESSION: Bilateral consolidation and pleural effusion stable correlate for pneumonia versus CHF.
[2018-10-03 11:01] LABS: Glucose,Whole Blood 112 mg/dL (75-99)
[2018-10-03 12:25] LABS: Glucose,Whole Blood 106 mg/dL (75-99)
[2018-10-03] MEDS: INSULIN ASPART 100 UNIT/ML 1 ML 10 ML VIAL SQ SCH ×3 (12:39→23:32)
--- NOTE | 2018-10-03 13:45 | P.PN ---
Subjective Progress Note Date: 10/03/18 Principal diagnosis: Status post mitral valve repair postoperative day #2 This is a 58-year-old gentleman who follows with Dr. Oswald as his primary care physician. He has a history of hyperlipidemia and chronic and ongoing tobacco dependence at 1 pack per day. He was found to have a systolic ejection murmur on his screening exam and was referred for two-dimensional echocardiogram. He had one back on 05/20/2018 that showed evidence of preserved left ventricular systolic function, severe mitral valve regurgitation from posterior leaflet prolapse/flail. The patient had been asymptomatic at that time. No dyspnea on exertion, palpitations or chest pain. FELIZ August 15 2018 confirmed severe mitral regurgitation secondary to the prolapsing posterior mitral leaflet. Preserved left ventricular systolic function of 55-60 %. Cardiac catheterization revealed nonobstructive coronary artery disease. He was admitted early this morning for an elective mitral valve repair which was performed by Dr. Ward. He is seen today in the ICU immediately postoperatively. He remains intubated and on the mechanical ventilator to SIMV mode of 12, volume 550, FiO2 100% and a PEEP of 5. Is currently on propofol at 40 mcg/kg/m. Initially on norepinephrine currently on hold. Systolic blood pressure in the 110's with a diastolic pressure in the 60s. Mean arterial pressure greater than 60. PA pressure 34/12. Cardiac output 6. Cardiac index 3.1. Split mediastinal and right pleural chest tubes are in place. Chest x- ray was reviewed with Dr. Worrell. Currently no significant abnormalities. Right IJ Fay-Brian catheter in place. Temporary pacemaker wires in place. Glucose 131. Other labs pending. 2 units of packed red blood cells are pending. 2 units of platelets available. Patient was reevaluated today on 10/02/2018, he was extubated shortly after he arrived to the ICU. Tolerated the extubation well, patient is doing quite well today. Relatively asymptomatic, in no distress, cooperative, denies any specific complaints, using his incentive spirometry. Chest x-ray is reassuring , minimal atelectasis at the bases. No evidence of congestive heart failure. Labs were relatively unremarkable and all were reviewed. Patient was reevaluated today on 10/03/2018. Had lots of called on this patient last night, his O2 saturation was quite low even on high flow nasal cannula. Patient was tried on BiPAP, and he did not tolerate. Hence patient was placed back on high flow nasal cannula, in the meantime he was given more incentive spirometry, bronchodilators, and he received earlier a dose of Lasix. Feeling much better today, breathing a lot easier, and he is down to 8 L high flow nasal cannula, and he is saturating in the mid 90s. Patient felt much better once he was able to clear some of his endotracheal secretions chest x-ray was reviewed, minimal atelectasis at the bases, no clear-cut infiltrate, and no evidence of pulmonary edema. His CBC showed no evidence of leukocytosis. His hemoglobin is 10.5 elective lites are normal renal profile is normal. Objective - Vital Signs Vital signs: Vital Signs Temp 98.4 F 10/03/18 12:00 Pulse 83 10/03/18 12:01 Resp 13 10/03/18 12:00 BP 111/64 10/03/18 12:00 Pulse Ox 97 10/03/18 12:00 Intake & Output 10/02/18 10/03/18 10/03/18 18:59 06:59 18:59 Intake Total 1353.239 280.700 78 Output Total 520 580 600 Balance 833.239 -299.300 -522 Weight 96.7 kg Intake: IV 850 260 78 ACETAMINOPHEN IV (For NPO 100 ) 1,000 mg In Empty Bag 1 bag @ 400 mls/hr IVPB Q6HR NOÉ Rx#:[id number] Lactated Ringers 1,000 ml 610 200 60 @ 20 mls/hr IV .Q24H NOÉ Rx#:[id number] cardiac output 50 pressure bag 90 60 18 Intake, IV Titration 23.239 20.700 Amount Insulin Regular 100 unit 23.239 20.700 In Sodium Chloride 0.9% 100 ml @ Per Protocol IV .Q0M NOÉ Rx#:[id number] Oral 480 Output: Chest Tube Drainage 20 200 100 mediastinal chest x2 20 180 60 right pleural 0 20 40 Urine 500 380 500 Other: Voiding Method Indwelling Catheter Indwelling Catheter Indwelling Catheter ABP, PAP, CO, CI - Last Documented Arterial Blood Pressure 113/65 Pulmonary Artery Pressure 32/13 Cardiac Output 5.6 Cardiac Index 2.6 - Exam Physical Exam: Revealed a 58-year-old white male sitting in a chair, in no distress. Presently on 8 L high flow nasal cannula O2 saturation is 94% Head: Atraumatic, normocephalic. HEENT:[Neck is supple.] [No neck masses.] [No thyromegaly.] [No JVD.] Chest: [Clear throughout, no crackles, no rhonchi, no wheezes.] Cardiac Exam: [Normal S1 and S2, no S3 gallop, no murmur.] AV epicardial pacemaker wires present. Abdomen: [Soft, nontender, no megaly, no rebound, no guarding, normal bowel sounds.] Extremities: [No clubbing, no edema, no cyanosis.] Neurological Exam: [No focal neurologic deficit.] Psychiatric: Normal mood affect and mental status examination. Skin: No rashes. Surgical sites are clean and dry. - Labs CBC & Chem 7: 10/03/18 05:15 10/03/18 05:15 Labs: Abnormal Lab Results - Last 24 Hours (Table) 10/02/18 10/02/18 10/02/18 Range/Units 14:30 16:30 18:00 RBC (4.30-5.90) m/uL Hgb (13.0-17.5) gm/dL Hct (39.0-53.0) % Plt Count (150-450) k/uL Neutrophils # (1.3-7.7) k/uL BUN (9-20) mg/dL Creatinine (0.66-1.25) mg/dL Glucose (74-99) mg/dL POC Glucose (mg/dL) 139 H 113 H 119 H (75-99) mg/dL Magnesium (1.6-2.3) mg/dL Alkaline Phosphatase (38-126) U/L Total Protein (6.3-8.2) g/dL 10/02/18 10/02/18 10/02/18 Range/Units 20:43 22:01 23:09 RBC (4.30-5.90) m/uL Hgb (13.0-17.5) gm/dL Hct (39.0-53.0) % Plt Count (150-450) k/uL Neutrophils # (1.3-7.7) k/uL BUN (9-20) mg/dL Creatinine (0.66-1.25) mg/dL Glucose (74-99) mg/dL POC Glucose (mg/dL) 103 H 125 H 116 H (75-99) mg/dL Magnesium (1.6-2.3) mg/dL Alkaline Phosphatase (38-126) U/L Total Protein (6.3-8.2) g/dL 10/02/18 10/03/18 10/03/18 Range/Units 23:52 01:09 02:22 RBC (4.30-5.90) m/uL Hgb (13.0-17.5) gm/dL Hct (39.0-53.0) % Plt Count (150-450) k/uL Neutrophils # (1.3-7.7) k/uL BUN (9-20) mg/dL Creatinine (0.66-1.25) mg/dL Glucose (74-99) mg/dL POC Glucose (mg/dL) 111 H 110 H 117 H (75-99) mg/dL Magnesium (1.6-2.3) mg/dL Alkaline Phosphatase (38-126) U/L Total Protein (6.3-8.2) g/dL 10/03/18 10/03/18 10/03/18 Range/Units 05:12 05:15 05:15 RBC 3.29 L (4.30-5.90) m/uL Hgb 10.5 L (13.0-17.5) gm/dL Hct 30.9 L (39.0-53.0) % Plt Count 144 L (150-450) k/uL Neutrophils # 8.0 H (1.3-7.7) k/uL BUN 23 H (9-20) mg/dL Creatinine 0.63 L (0.66-1.25) mg/dL Glucose 112 H (74-99) mg/dL POC Glucose (mg/dL) 116 H (75-99) mg/dL Magnesium 2.4 H (1.6-2.3) mg/dL Alkaline Phosphatase 35 L (38-126) U/L Total Protein 5.8 L (6.3-8.2) g/dL 10/03/18 10/03/18 10/03/18 Range/Units 07:13 10:18 12:14 RBC (4.30-5.90) m/uL Hgb (13.0-17.5) gm/dL Hct (39.0-53.0) % Plt Count (150-450) k/uL Neutrophils # (1.3-7.7) k/uL BUN (9-20) mg/dL Creatinine (0.66-1.25) mg/dL Glucose (74-99) mg/dL POC Glucose (mg/dL) 112 H 112 H 106 H (75-99) mg/dL Magnesium (1.6-2.3) mg/dL Alkaline Phosphatase (38-126) U/L Total Protein (6.3-8.2) g/dL Assessment and Plan Assessment: #1 Severe mitral regurgitation secondary to prolapsing of the P2 component of the posterior mitral leaflet. Status post mitral valve repair, postoperative day #2. Patient was extubated within an hour after arrival to the ICU, and tolerated the extubation well. #2 Nonobstructive coronary artery disease. #3 Hyperlipidemia. #4 Chronic and ongoing tobacco dependence. #5 postoperative bibasilar atelectasis, expected findings after such surgery. Recommendation: Continue incentive spirometry, continue bronchodilators, continue diuretics, early ambulation, encouraged to do deep coughing and deep breathing, patient had some eventful episodes of desaturations last night, but seems to be improving today, and some of the tubes will come out including his Naranjo catheter will come out, and may even consider transferring the patient to a monitor bed on selective. In the meantime continue his cardiac meds including aspirin statins and beta blockers, counseled regarding smoking cessation, given and responded to a dose of Lasix early this morning. Improving with bronchodilators. Continue to monitor sugars closely, and control with insulin as per protocol. Continue GI and DVT prophylaxis. Continue SCDS his chest tubes are coming out, Cordis is coming out, arterial line is coming out, Naranjo catheter is coming up today, we'll continue to follow. Time with Patient: Less than 30
[2018-10-03 17:10] LABS: Glucose,Whole Blood 109 mg/dL (75-99)
[2018-10-03 20:49] LABS: Glucose,Whole Blood 109 mg/dL (75-99)
[2018-10-03] MEDS: SENNOSIDES-DOCUSATE SODIUM 1 EACH TAB PO SCH (21:08)
[2018-10-03] MEDS: CLEVIDIPINE BUTYRATE 25 MG in EMPTY BAG 1 BAG IV SCH (23:42)
[2018-10-04] MEDS: KETOROLAC 30 MG/ML 1 ML VIAL IVP SCH ×5 (00:06→21:40)
[2018-10-04] MEDS: HEPARIN SODIUM,PORCINE 5,000 UNIT/ML 1 ML VIAL SQ SCH ×4 (00:18→23:06)
[2018-10-04 06:06] LABS: Glucose,Whole Blood 123 mg/dL (75-99)
[2018-10-04] MEDS: INSULIN ASPART 100 UNIT/ML 1 ML 10 ML VIAL SQ SCH ×4 (06:10→21:22)
[2018-10-04] MEDS: PANTOPRAZOLE 40 MG TABLET PO SCH (06:36)
[2018-10-04 07:12] LABS: Basophils % (A) 0 %; Eosinophils % (A) 1 %; HCT 31.4 % (39.0-53.0); HGB 10.9 gm/dL (13.0-17.5); Lymphocytes # (A) 1.2 k/uL (1.0-4.8); Lymphocytes % (A) 16 %; MCH 33.1 pg (25.0-35.0); MCHC 34.8 g/dL (31.0-37.0); MCV 94.9 fL (80.0-100.0); Mean Platelet Volume 7.2; Monocytes # (A) 0.4 k/uL (0-1.0); Monocytes % (A) 6 %; Neutrophils # (A) 5.8 k/uL (1.3-7.7); Neutrophils % (A) 76 %; Platelet Count 172 k/uL (150-450); RBC 3.31 m/uL (4.30-5.90); RDW 13.6 % (11.5-15.5); WBC 7.7 k/uL (3.8-10.6)
[2018-10-04 07:29] LABS: ALT 41 U/L (21-72); AST 41 U/L (17-59); Albumin 3.7 g/dL (3.5-5.0); Alkaline Phosphatase 48 U/L (38-126); Anion Gap 7 mmol/L; Blood Urea Nitrogen 21 mg/dL (9-20); Calcium 8.9 mg/dL (8.4-10.2); Carbon Dioxide 26 mmol/L (22-30); Chloride 104 mmol/L (98-107); Glucose 111 mg/dL (74-99); Magnesium 2.4 mg/dL (1.6-2.3); Potassium 3.8 mmol/L (3.5-5.1); Sodium 137 mmol/L (137-145); Total Bilirubin 1.1 mg/dL (0.2-1.3)
--- NOTE | 2018-10-04 07:47 | XR ---
EXAMINATION TYPE: XR chest 2V DATE OF EXAM: 10/04/2018 COMPARISON: Prior chest x-ray 10/03/2018 HISTORY: Status post cardiac surgery TECHNIQUE: Frontal and lateral views of the chest are obtained. FINDINGS: Patient is post median sternotomy and atrial appendage clipping. Central venous sheath has been removed. Median sternal drain is no longer seen. Bibasilar density persists, right-sided chest tube has been removed. There are cardiac leads. No evident pneumothorax. Heart size remains enlarged. Mitral valve replacement change noted. Epicardial pacing leads remain in place. IMPRESSION: There may be small basilar effusions, associated atelectasis. No evident complication st atus post chest tube removal.
[2018-10-04] MEDS ORDERED: POTASSIUM CHLORIDE ER 20 MEQ TAB.ER PO STA (07:48)
[2018-10-04] MEDS: IPRATROPIUM-ALBUTEROL 3 ML NEB INHALATION SCH ×4 (07:57→20:49)
[2018-10-04] MEDS: ASPIRIN 325 MG TAB PO SCH (08:29)
[2018-10-04] MEDS: METOPROLOL TARTRATE 25 MG TAB PO SCH ×2 (08:29→21:40)
[2018-10-04] MEDS: ATORVASTATIN 40 MG TAB PO SCH (08:29)
[2018-10-04] MEDS: FUROSEMIDE 10 MG/ML 2 ML VIAL IV SCH ×2 (08:30→21:40)
[2018-10-04] MEDS: MUPIROCIN 2% OINT 22 GM TUBE NASAL SCH ×2 (08:32→21:40)
--- NOTE | 2018-10-04 09:37 | P.PN ---
Subjective Progress Note Date: 10/04/18 Principal diagnosis: Status post mitral valve repair This is a pleasant 58-year-old gentleman who was diagnosed recently with severe symptomatic mitral regurgitation. He underwent the day before yesterday successful mitral valve repair with annuloplasty. This is postoperative elevation day #2. The patient is feeling overall better. He remains hemodynamically stable with marginally low blood pressure. He remains in normal sinus mechanism. He continues to be on aspirin, metoprolol, and Plavix. The chest x-ray from today showed mild bilateral pleural effusion. Currently the patient is on Lasix IV at 40 twice a day. Objective - Vital Signs Vital signs: Vital Signs Temp 97.8 F 10/04/18 08:00 Pulse 106 H 10/04/18 09:08 Resp 18 10/04/18 08:00 BP 139/74 10/04/18 09:08 Pulse Ox 93 L 10/04/18 09:08 Intake & Output 10/03/18 10/04/18 10/04/18 18:59 06:59 18:59 Intake Total 78 120 118 Output Total 780 0 Balance -702 120 118 Weight 93.9 kg Intake: IV 78 Lactated Ringers 1,000 ml 60 @ 20 mls/hr IV .Q24H NOÉ Rx#:[id number] pressure bag 18 Oral 120 118 Output: Chest Tube Drainage 100 mediastinal chest x2 60 right pleural 40 Urine 680 0 Other: Voiding Method Indwelling Catheter Toilet # Voids 1 ABP, PAP, CO, CI - Last Documented Arterial Blood Pressure 113/65 Pulmonary Artery Pressure 32/13 Cardiac Output 5.6 Cardiac Index 2.6 - Constitutional General appearance: Present: no acute distress - Respiratory Respiratory: bilateral: diminished - Cardiovascular Rhythm: regular Heart sounds: normal: S1, S2 - Labs CBC & Chem 7: 10/04/18 06:25 10/04/18 06:25 Labs: Abnormal Lab Results - Last 24 Hours (Table) 10/03/18 10/03/18 10/03/18 Range/Units 10:18 12:14 16:59 RBC (4.30-5.90) m/uL Hgb (13.0-17.5) gm/dL Hct (39.0-53.0) % BUN (9-20) mg/dL Glucose (74-99) mg/dL POC Glucose (mg/dL) 112 H 106 H 109 H (75-99) mg/dL Magnesium (1.6-2.3) mg/dL Total Protein (6.3-8.2) g/dL 10/03/18 10/04/18 10/04/18 Range/Units 20:37 06:04 06:25 RBC (4.30-5.90) m/uL Hgb (13.0-17.5) gm/dL Hct (39.0-53.0) % BUN 21 H (9-20) mg/dL Glucose 111 H (74-99) mg/dL POC Glucose (mg/dL) 109 H 123 H (75-99) mg/dL Magnesium 2.4 H (1.6-2.3) mg/dL Total Protein 6.0 L (6.3-8.2) g/dL 10/04/18 Range/Units 06:25 RBC 3.31 L (4.30-5.90) m/uL Hgb 10.9 L (13.0-17.5) gm/dL Hct 31.4 L (39.0-53.0) % BUN (9-20) mg/dL Glucose (74-99) mg/dL POC Glucose (mg/dL) (75-99) mg/dL Magnesium (1.6-2.3) mg/dL Total Protein (6.3-8.2) g/dL Assessment and Plan Assessment: Assessment #1 severe symptomatic mitral regurgitation #2 status post mitral valve repair with annuloplasty #3 mild nonobstructive coronary artery disease Plan #1 continue the current medical regimen including aspirin, metoprolol, and statin #2 continue monitor the rhythm. The patient has been maintaining normal sinus mechanism #3 continue monitor the kidney function as well as electrolytes as well as hemoglobin #4 follow-up with the patient.
--- NOTE | 2018-10-04 09:50 | P.PN ---
Subjective Progress Note Date: 10/04/18 Principal diagnosis: Severe mitral valve regurgitation from P2 prolapse. Hyperlipidemia. Previous tobacco dependence with preoperative FEV1 92% of predicted. Family history of premature coronary artery disease with father at 52 years old from CAD. Obesity. POD #3 complex mitral valve repair with triangular resection of P2 and posterior annuloplasty using a #30 AnnuloFlex posterior ring. Exclusion of the left atrial appendage using a 40 mm AtriClip. Intraoperative transesophageal echocardiogram and epi-aortic scanning. Postoperative acute blood loss anemia, an expected outcome of surgery. The patient is currently sitting up in a recliner in no acute distress. Does state pain is much better controlled today. Denies shortness of breath. No new complaints. Patient to ambulate in the hallway yesterday. FiO2 is being titrated down. Remains in normal sinus rhythm. All chest tubes, Cordis, arterial line, Naranjo were discontinued yesterday. Patient was transferred to [address] [place] [address] cardiac stepdown unit yesterday. Objective - Vital Signs Vital signs: Vital Signs Temp 97.8 F 10/04/18 08:00 Pulse 106 H 10/04/18 09:08 Resp 18 10/04/18 08:00 BP 139/74 10/04/18 09:08 Pulse Ox 93 L 10/04/18 09:08 Intake & Output 10/03/18 10/04/18 10/04/18 18:59 06:59 18:59 Intake Total 78 120 118 Output Total 780 0 Balance -702 120 118 Weight 93.9 kg Intake: IV 78 Lactated Ringers 1,000 ml 60 @ 20 mls/hr IV .Q24H [facility] Rx#:[id number] pressure bag 18 Oral 120 118 Output: Chest Tube Drainage 100 mediastinal chest x2 60 right pleural 40 Urine 680 0 Other: Voiding Method Indwelling Catheter Toilet # Voids 1 ABP, PAP, CO, CI - Last Documented Arterial Blood Pressure 113/65 Pulmonary Artery Pressure 32/13 Cardiac Output 5.6 Cardiac Index 2.6 - Constitutional General appearance: Present: cooperative, no acute distress - Respiratory Details: Lungs sounds diminished bilaterally. Respirations even, nonlabored. Currently on 5 L nasal cannula with oxygen saturation 93%. Able to achieve 4812-6168 mL on his incentive spirometry. Strong cough. - Cardiovascular Details: S1, S2 present. Regular rate and rhythm, sinus rhythm on telemetry. Sternum stable. A/V epicardial pacemaker wires present, grounded. Palpable peripheral pulses bilaterally. No edema present. No calf pain or tenderness noted. Heart hugger in place with patient demonstrating appropriate use. Antiembolism stockings, SCDs present. - Gastrointestinal Gastrointestinal Comment(s): Abdomen soft, nontender, nondistended. Active bowel sounds present 4 quadrants. Tolerating diet. Positive small bowel movement per patient. - Genitourinary Genitourinary Comment(s): Naranjo discontinued yesterday, patient has voided clear, yellow urine. - Integumentary Integumentary Comment(s): Skin is warm and dry with evidence of good perfusion. Anterior chest incision well approximated and covered with dry intact dressing. - Neurologic Neurologic: Present: CNII-XII intact - Musculoskeletal Musculoskeletal: Present: gait normal, strength equal bilaterally - Psychiatric Psychiatric: Present: A&O x's 3, appropriate affect, intact judgment & insight - Allied health notes Allied health notes reviewed: nursing - Labs CBC & Chem 7: 10/04/18 06:25 10/04/18 06:25 Labs: Abnormal Lab Results - Last 24 Hours (Table) 10/03/18 10/03/18 10/03/18 Range/Units 10:18 12:14 16:59 RBC (4.30-5.90) m/uL Hgb (13.0-17.5) gm/dL Hct (39.0-53.0) % BUN (9-20) mg/dL Glucose (74-99) mg/dL POC Glucose (mg/dL) 112 H 106 H 109 H (75-99) mg/dL Magnesium (1.6-2.3) mg/dL Total Protein (6.3-8.2) g/dL 10/03/18 10/04/18 10/04/18 Range/Units 20:37 06:04 06:25 RBC (4.30-5.90) m/uL Hgb (13.0-17.5) gm/dL Hct (39.0-53.0) % BUN 21 H (9-20) mg/dL Glucose 111 H (74-99) mg/dL POC Glucose (mg/dL) 109 H 123 H (75-99) mg/dL Magnesium 2.4 H (1.6-2.3) mg/dL Total Protein 6.0 L (6.3-8.2) g/dL 10/04/18 Range/Units 06:25 RBC 3.31 L (4.30-5.90) m/uL Hgb 10.9 L (13.0-17.5) gm/dL Hct 31.4 L (39.0-53.0) % BUN (9-20) mg/dL Glucose (74-99) mg/dL POC Glucose (mg/dL) (75-99) mg/dL Magnesium (1.6-2.3) mg/dL Total Protein (6.3-8.2) g/dL - Imaging and Cardiology Chest x-ray: report reviewed, image reviewed Assessment and Plan (1) Severe mitral valve regurgitation Current Visit: Yes Status: Chronic Code(s): I34.0 - NONRHEUMATIC MITRAL ( VALVE) INSUFFICIENCY SNOMED Code(s): 12801760 (2) Hyperlipidemia Current Visit: Yes Status: Chronic Code(s): E78.5 - HYPERLIPIDEMIA, UNSPECIFIED SNOMED Code(s): 48761348 (3) Tobacco dependence in remission Current Visit: No Status: Resolved Code(s): F17.201 - NICOTINE DEPENDENCE, UNSPECIFIED, IN REMISSION SNOMED Code(s): 827266312 (4) Obesity (BMI 30.0-34.9) Current Visit: Yes Status: Chronic Code(s): E66.9 - OBESITY, UNSPECIFIED SNOMED Code(s): 138931050610103 (5) Family history of coronary artery disease Current Visit: Yes Status: Chronic Code(s): Z82.49 - FAMILY HX OF ISCHEM HEART DIS AND OTH DIS OF THE CIRC SYS SNOMED Code(s): 114144049 Plan: 1. Continue aspirin, statin, beta sophie therapy. Will increase beta sophie therapy as tolerated. 2. Wean O2 as tolerated. Encourage incentive spirometry 10 times every hour while awake. 3. Encourage continued smoking cessation. 4. Continue IV Lasix. 5. Increase activity, ambulate as tolerated. PT/OT/cardiac rehab following. 6. Bronchodilators per pulmonology. 7. Continue pain control with current medication regimen. 8. Insulin management per primary care service. 9. GI prophylaxis with Protonix, DVT prophylaxis with subcu heparin, SCDs. 10. Will monitor daily labs and x-rays. Electrolyte replacement per protocol. 11. Discharge planning in progress. Anticipate discharge to home with home care in the next 24-48 hours. 12. More recommendations to follow. Time with Patient: Greater than 30
[2018-10-04 11:31] LABS: Glucose,Whole Blood 114 mg/dL (75-99)
--- NOTE | 2018-10-04 14:01 | P.PN ---
Subjective Progress Note Date: 10/04/18 Principal diagnosis: Status post mitral valve repair postoperative day #3 This is a 58-year-old gentleman who follows with Dr. Oswald as his primary care physician. He has a history of hyperlipidemia and chronic and ongoing tobacco dependence at 1 pack per day. He was found to have a systolic ejection murmur on his screening exam and was referred for two-dimensional echocardiogram. He had one back on 05/20/2018 that showed evidence of preserved left ventricular systolic function, severe mitral valve regurgitation from posterior leaflet prolapse/flail. The patient had been asymptomatic at that time. No dyspnea on exertion, palpitations or chest pain. FELIZ August 15 2018 confirmed severe mitral regurgitation secondary to the prolapsing posterior mitral leaflet. Preserved left ventricular systolic function of 55-60 %. Cardiac catheterization revealed nonobstructive coronary artery disease. He was admitted early this morning for an elective mitral valve repair which was performed by Dr. Ward. He is seen today in the ICU immediately postoperatively. He remains intubated and on the mechanical ventilator to SIMV mode of 12, volume 550, FiO2 100% and a PEEP of 5. Is currently on propofol at 40 mcg/kg/m. Initially on norepinephrine currently on hold. Systolic blood pressure in the 110's with a diastolic pressure in the 60s. Mean arterial pressure greater than 60. PA pressure 34/12. Cardiac output 6. Cardiac index 3.1. Split mediastinal and right pleural chest tubes are in place. Chest x- ray was reviewed with Dr. Worrell. Currently no significant abnormalities. Right IJ Maybell-Brian catheter in place. Temporary pacemaker wires in place. Glucose 131. Other labs pending. 2 units of packed red blood cells are pending. 2 units of platelets available. Patient was reevaluated today on 10/02/2018, he was extubated shortly after he arrived to the ICU. Tolerated the extubation well, patient is doing quite well today. Relatively asymptomatic, in no distress, cooperative, denies any specific complaints, using his incentive spirometry. Chest x-ray is reassuring , minimal atelectasis at the bases. No evidence of congestive heart failure. Labs were relatively unremarkable and all were reviewed. Patient was reevaluated today on 10/03/2018. Had lots of called on this patient last night, his O2 saturation was quite low even on high flow nasal cannula. Patient was tried on BiPAP, and he did not tolerate. Hence patient was placed back on high flow nasal cannula, in the meantime he was given more incentive spirometry, bronchodilators, and he received earlier a dose of Lasix. Feeling much better today, breathing a lot easier, and he is down to 8 L high flow nasal cannula, and he is saturating in the mid 90s. Patient felt much better once he was able to clear some of his endotracheal secretions chest x-ray was reviewed, minimal atelectasis at the bases, no clear-cut infiltrate, and no evidence of pulmonary edema. His CBC showed no evidence of leukocytosis. His hemoglobin is 10.5 elective lites are normal renal profile is normal. On 10/04/2018 patient seen in follow-up on selective care unit. Room air pulse ox was 98%, patient's, comfortable, no distress, afebrile. His chest x-ray showed small basilar pleural effusions, with associated atelectasis. he has received Lasix per CT surgery, diuresing. All chest tubes, Cortis, arterial line, Naranjo catheter and epicardial wires have been removed. Patient has been ambulating, tolerating activity well, his incentive spirometer effort is over [id number]. On sounds are clear with diminished breath sounds at the bases, with minimal crackles. Objective - Vital Signs Vital signs: Vital Signs Temp 97.8 F 10/04/18 08:00 Pulse 80 10/04/18 12:15 Resp 18 10/04/18 12:15 BP 111/66 10/04/18 12:15 Pulse Ox 98 10/04/18 12:15 Intake & Output 10/03/18 10/04/18 10/04/18 18:59 06:59 18:59 Intake Total 78 120 118 Output Total 780 0 200 Balance -702 120 -82 Weight 93.9 kg Intake: IV 78 Lactated Ringers 1,000 ml 60 @ 20 mls/hr IV .Q24H [facility] Rx#:[id number] pressure bag 18 Oral 120 118 Output: Chest Tube Drainage 100 mediastinal chest x2 60 right pleural 40 Urine 680 0 200 Other: Voiding Method Indwelling Catheter Toilet # Voids 1 ABP, PAP, CO, CI - Last Documented Arterial Blood Pressure 113/65 Pulmonary Artery Pressure 32/13 Cardiac Output 5.6 Cardiac Index 2.6 - Exam GENERAL EXAM: Alert, pleasant, 58-year-old white male, comfortable in no apparent distress. HEAD: Normocephalic/atraumatic. EYES: Normal reaction of pupils, equal size. Conjunctiva pink, sclera white. NOSE: Clear with pink turbinates. THROAT: No erythema or exudates. NECK: No masses, no JVD, no thyroid enlargement, no adenopathy. CHEST: No chest wall deformity. Symmetrical expansion. Sternal incision is clean dry and intact, chest tube sites are clean dry and intact LUNGS: Equal air entry with diminished breath sounds at the bases, with minimal crackles CVS: Regular rate and rhythm, normal S1 and S2, no gallops, no murmurs, no rubs ABDOMEN: Soft, nontender. No hepatosplenomegaly, normal bowel sounds, no guarding or rigidity. EXTREMITIES: No clubbing, no edema, no cyanosis, 2+ pulses and upper and lower extremities. MUSCULOSKELETAL: Muscle strength and tone normal. SPINE: No scoliosis or deformity SKIN: No rashes CENTRAL NERVOUS SYSTEM: Alert and oriented -3. No focal deficits, tone is normal in all 4 extremities. PSYCHIATRIC: Alert and oriented -3. Appropriate affect. Intact judgment and insight. - Labs CBC & Chem 7: 10/04/18 06:25 10/04/18 06:25 Labs: Abnormal Lab Results - Last 24 Hours (Table) 10/03/18 10/03/18 10/04/18 Range/Units 16:59 20:37 06:04 RBC (4.30-5.90) m/uL Hgb (13.0-17.5) gm/dL Hct (39.0-53.0) % BUN (9-20) mg/dL Glucose (74-99) mg/dL POC Glucose (mg/dL) 109 H 109 H 123 H (75-99) mg/dL Magnesium (1.6-2.3) mg/dL Total Protein (6.3-8.2) g/dL 10/04/18 10/04/18 10/04/18 Range/Units 06:25 06:25 11:29 RBC 3.31 L (4.30-5.90) m/uL Hgb 10.9 L (13.0-17.5) gm/dL Hct 31.4 L (39.0-53.0) % BUN 21 H (9-20) mg/dL Glucose 111 H (74-99) mg/dL POC Glucose (mg/dL) 114 H (75-99) mg/dL Magnesium 2.4 H (1.6-2.3) mg/dL Total Protein 6.0 L (6.3-8.2) g/dL Assessment and Plan Plan: #1 Severe mitral regurgitation secondary to prolapsing of the P2 component of the posterior mitral leaflet. Status post mitral valve repair, postoperative day 3 #2. Patient was extubated within an hour after arrival to the ICU, and tolerated the extubation well. #2 Nonobstructive coronary artery disease. #3 Hyperlipidemia. #4 Chronic and ongoing tobacco dependence. #5 postoperative bibasilar atelectasis, expected findings after such surgery. Plan: Continue encouraging ambulation, deep breathing and coughing, incentive spirometry use, today's chest x-ray has been reviewed with Dr. Joseph, showed small basilar pleural effusions, and associated atelectasis. He did have IV Lasix started by CT surgery. Remains in sinus mechanism, tolerating ambulation. Patient is anticipated to be discharged tomorrow with home care. We'll continue to follow I performed a history & physical examination of the patient and discussed their management with my nurse practitioner, Jada Curiel. I reviewed the nurse practitioner's note and agree with the documented findings and plan of care. Lung sounds are positive for minimal crackles at the bases. The findings and the impression was discussed with the patient. I attest to the documentation by the nurse practitioner. Time with Patient: Less than 30
[2018-10-04 16:28] LABS: Glucose,Whole Blood 108 mg/dL (75-99)
--- NOTE | 2018-10-04 20:09 | PN ---
PROGRESS NOTE DATE OF SERVICE: 10/03/2018 PRESENTING COMPLAINT: Postoperative. INTERVAL HISTORY: This patient was seen by me yesterday in the ICU. The patient is status post mitral valve repair for severe mitral regurgitation. Patient remains hypoxic on high-flow oxygen. Sitting up. Chest tubes in place. Tired, short of breath. Sitting up. REVIEW OF SYSTEMS: Done for constitutional, cardiovascular, GI, pulmonary; relevant findings as above. CURRENT MEDICATIONS: Reviewed. PHYSICAL EXAMINATION: Temperature 98.4, pulse 76, respiration 13, blood pressure 111/64, pulse ox 96% on 10 L. GENERAL APPEARANCE: Sitting up in a chair. Short of breath. EYES: Pupils equal. Conjunctivae pale. NECK: JVD unable to assess. Mass not palpable. RESPIRATORY: Effort increased. LUNGS: Decreased breath sounds, especially at the bases. CARDIOVASCULAR: First and second sounds normal. No edema. ABDOMEN: Soft, nontender. Liver and spleen not palpable. PSYCHIATRY: Alert and oriented x3. Mood and affect normal. CHEST WALL: Chest wall had 3 tubes. PSYCH: Alert and oriented x3. Mood and affect tired-appearing. INVESTIGATIONS: White count 9.8, hemoglobin 10.5, platelets 144, potassium 4.4, BUN 23, creatinine 0.63. Chest x-ray reported showing bilateral consolidation/effusion. ASSESSMENT: 1. Severe mitral regurgitation followed by replacement. 2. Left atrial appendage excision. 3. Acute hypoxic respiratory failure from atelectasis, postoperative pleural effusion. 4. Hyperlipidemia. 5. Hypoalbuminemia as an acute phase reactant. 6. Mild leukocytosis, likely reactive from surgery. No evidence of infection. PLAN: Continue current medication and treatment plan. Continue with bronchodilators, inspiratory spirometer. Activity as tolerated. Will follow. MMODL / IJN: [id number] /
--- NOTE | 2018-10-04 20:12 | PN ---
PROGRESS NOTE DATE OF SERVICE: 10/04/2018 PRESENTING COMPLAINT: Tired. INTERVAL HISTORY: Patient is status post mitral valve replacement. Patient's breathing is better. Patient did get bronchodilators, some Lasix, and nasal cannula has come down. Patient did eat a bit better. Sitting up. Shortness of breath is somewhat better. Chest tubes have been taken out. REVIEW OF SYSTEMS: Done for constitutional, cardiovascular, GI, pulmonary; relevant findings as above. CURRENT MEDICATIONS: Reviewed. They include: 1. DuoNeb. 2. Amiodarone. 3. Lipitor. 4. Subcutaneous heparin. 5. Lopressor. 6. Protonix. PHYSICAL EXAMINATION: VITAL SIGNS: Temperature 97.6, pulse 94, respiration 17, blood pressure 117/66, pulse ox 94% on 3 L. GENERAL: Sitting up, more restful today. EYES: Pupils equal. Conjunctivae pale. NECK: JVD unable to assess. Mass not palpable. RESPIRATORY: Effort increased. LUNG: Decreased breath sounds, especially on the right base. CARDIOVASCULAR: First and second sounds normal. No edema. ABDOMEN: Soft, non-tender. Liver and spleen not palpable. PSYCHIATRY: Alert and oriented x3. Mood and affect normal. INVESTIGATIONS: White count 7.7, hemoglobin 10.9, potassium 3.8, BUN 21, creatinine 0.75. Chest x-ray, personally reviewed by me, shows right pleural effusion, straightening of the left heart border. ASSESSMENT: 1. Severe mitral regurgitation followed by repair. 2. Left atrial appendage excision. 3. Acute hypoxic respiratory failure from atelectasis and pleural effusion. 4. Hyperlipidemia. 5. Hypoalbuminemia, acute phase reactant. 6. Acute postoperative blood loss anemia, expected from surgery. PLAN: Continue current medication and treatment plan. The patient is on IV Lasix. Care was discussed with the patient. Patient is clinically doing better. MMODL / IJN: [id number] /
[2018-10-04 20:53] LABS: Glucose,Whole Blood 115 mg/dL (75-99)
[2018-10-04] MEDS: SENNOSIDES-DOCUSATE SODIUM 1 EACH TAB PO SCH (21:40)
[2018-10-05] MEDS: KETOROLAC 30 MG/ML 1 ML VIAL IVP SCH ×4 (04:27→22:42)
[2018-10-05 06:06] LABS: Glucose,Whole Blood 106 mg/dL (75-99)
[2018-10-05] MEDS: INSULIN ASPART 100 UNIT/ML 1 ML 10 ML VIAL SQ SCH ×4 (06:28→21:10)
[2018-10-05] MEDS: PANTOPRAZOLE 40 MG TABLET PO SCH (06:38)
--- NOTE | 2018-10-05 07:01 | XR ---
EXAMINATION TYPE: XR chest 2V DATE OF EXAM: 10/05/2018 HISTORY: post cardiac surgery. REFERENCE: Previous study dated 10/04/2018. FINDINGS: There has been a midline sternotomy. The heart is enlarged. Is bibasilar airspace disease. There are small, bilateral effusions. No defini te pneumothorax is evident. IMPRESSION: CONTINUING POSTOPERATIVE CHANGE.
[2018-10-05 07:21] LABS: Basophils % (A) 1 %; Eosinophils # (A) 0.2 k/uL (0-0.7); Eosinophils % (A) 4 %; HCT 31.5 % (39.0-53.0); HGB 10.3 gm/dL (13.0-17.5); Lymphocytes % (A) 19 %; MCH 31.4 pg (25.0-35.0); MCHC 32.8 g/dL (31.0-37.0); MCV 95.9 fL (80.0-100.0); Mean Platelet Volume 6.9; Monocytes # (A) 0.4 k/uL (0-1.0); Monocytes % (A) 7 %; Neutrophils # (A) 3.5 k/uL (1.3-7.7); Neutrophils % (A) 65 %; Platelet Count 197 k/uL (150-450); RBC 3.28 m/uL (4.30-5.90); RDW 13.5 % (11.5-15.5); WBC 5.4 k/uL (3.8-10.6)
[2018-10-05] MEDS ORDERED: ACETAMINOPHEN TAB 325 MG TAB PO PRN ×2 (07:50)
[2018-10-05 08:00] LABS: ALT 58 U/L (21-72); AST 46 U/L (17-59); Albumin 3.4 g/dL (3.5-5.0); Alkaline Phosphatase 52 U/L (38-126); Anion Gap 7 mmol/L; Blood Urea Nitrogen 23 mg/dL (9-20); Calcium 8.7 mg/dL (8.4-10.2); Carbon Dioxide 27 mmol/L (22-30); Chloride 106 mmol/L (98-107); Glucose 103 mg/dL (74-99); Magnesium 2.4 mg/dL (1.6-2.3); Potassium 3.7 mmol/L (3.5-5.1); Sodium 140 mmol/L (137-145); Total Bilirubin 0.9 mg/dL (0.2-1.3); Total Protein 5.8 g/dL (6.3-8.2)
[2018-10-05] MEDS: IPRATROPIUM-ALBUTEROL 3 ML NEB INHALATION SCH ×4 (08:15→22:55)
[2018-10-05] MEDS: FUROSEMIDE 10 MG/ML 2 ML VIAL IV SCH (09:35)
[2018-10-05] MEDS: ASPIRIN 325 MG TAB PO SCH (09:35)
[2018-10-05] MEDS: HEPARIN SODIUM,PORCINE 5,000 UNIT/ML 1 ML VIAL SQ SCH ×3 (09:35→23:32)
[2018-10-05] MEDS: ATORVASTATIN 40 MG TAB PO SCH (09:36)
[2018-10-05] MEDS: METOPROLOL TARTRATE 25 MG TAB PO SCH ×2 (09:36→21:10)
[2018-10-05] MEDS ORDERED: DEXTROSE 5% IN WATER 100 ML with AMIODARONE 150 MG IV ONE ×2 (10:11→12:00)
[2018-10-05] MEDS ORDERED: AMIODARONE 450 MG in DEXTROSE 5% IN WATER 250 ML IV SCH ×2 (10:15)
[2018-10-05] MEDS ORDERED: AMIODARONE 150 MG Bolus IV ONE ×2 (10:30)
--- NOTE | 2018-10-05 11:54 | P.PN ---
Subjective Progress Note Date: 10/05/18 Principal diagnosis: Severe mitral valve regurgitation from P2 prolapse. Hyperlipidemia, Previous tobacco dependence with preoperative FEV1 92% of predicted, Family history of premature coronary artery disease with father at 52 years old from CAD and Obesity. POD #4 complex mitral valve repair with triangular resection of P2 and posterior annuloplasty using a #30 AnnuloFlex posterior ring. Exclusion of the left atrial appendage using a 40 mm AtriClip. Intraoperative transesophageal echocardiogram and epi-aortic scanning. Postoperative acute blood loss anemia, an expected outcome of surgery. Postoperative paroxysmal atrial fibrillation, an unexpected outcome of surgery. The patient is currently sitting up to the bedside chair in no acute distress. He denies any complaints of pain or shortness of breath at this time. The plan was to discharge the patient home today with home health care, although currently his remote telemetry showing atrial fibrillation with RVR heart rate 150. He remains hemodynamically stable. Current blood pressure 110/76, oxygen saturations are 94% on room air. Objective - Vital Signs Vital signs: Vital Signs Temp 97.5 F L 10/05/18 08:00 Pulse 90 10/05/18 08:29 Resp 18 10/05/18 08:00 BP 110/76 10/05/18 08:00 Pulse Ox 94 L 10/05/18 08:17 Intake & Output 10/04/18 10/05/18 10/05/18 18:59 06:59 18:59 Intake Total 318 240 Output Total 600 800 Balance -282 -800 240 Weight 92.7 kg Intake: Oral 318 240 Output: Urine 600 800 Other: Voiding Method Urinal Urinal # Voids 2 2 ABP, PAP, CO, CI - Last Documented Arterial Blood Pressure 113/65 Pulmonary Artery Pressure 32/13 Cardiac Output 5.6 Cardiac Index 2.6 - Constitutional General appearance: Present: cooperative, no acute distress, obese - Respiratory Details: Lung sounds essentially clear throughout, diminished to his bilateral bases. Respirations are symmetrical and nonlabored. Oxygen saturation are 96% on room air. He is achieving 1500 mL on his incentive spirometry. - Cardiovascular Details: Irregular rhythm with a tachycardic rate. S1 and S2 present, negative for S3, gallop or murmur. Sternum is stable. Remote telemetry showing atrial fibrillation with RVR heart rate 150. No edema present. Heart hugger is in place and he is demonstrating appropriate use. Knee-high SHASHANK hose and sequential compression devices in place to his bilateral lower extremities. - Gastrointestinal Gastrointestinal Comment(s): Abdomen is soft, nontender and nondistended. Active bowel sounds all 4 abdominal quadrants. Tolerating oral intake. Bowel movement this a.m. - Genitourinary Genitourinary Comment(s): Voiding clear yellow urine. 800 mL output in the last 8 hours. - Integumentary Integumentary Comment(s): Skin is warm and dry. No clubbing or cyanosis present. Midline sternal incision is clean, dry and approximated. No drainage or redness is present. - Neurologic Neurologic: Present: CNII-XII intact - Musculoskeletal Musculoskeletal: Present: gait normal, strength equal bilaterally - Psychiatric Psychiatric: Present: A&O x's 3, appropriate affect, intact judgment & insight - Allied health notes Allied health notes reviewed: nursing - Labs CBC & Chem 7: 10/05/18 06:46 10/05/18 06:46 Labs: Abnormal Lab Results - Last 24 Hours (Table) 10/04/18 10/04/18 10/04/18 Range/Units 11:29 16:27 20:52 RBC (4.30-5.90) m/uL Hgb (13.0-17.5) gm/dL Hct (39.0-53.0) % BUN (9-20) mg/dL Glucose (74-99) mg/dL POC Glucose (mg/dL) 114 H 108 H 115 H (75-99) mg/dL Magnesium (1.6-2.3) mg/dL Total Protein (6.3-8.2) g/dL Albumin (3.5-5.0) g/dL 10/05/18 10/05/18 10/05/18 Range/Units 06:05 06:46 06:46 RBC 3.28 L (4.30-5.90) m/uL Hgb 10.3 L (13.0-17.5) gm/dL Hct 31.5 L (39.0-53.0) % BUN 23 H (9-20) mg/dL Glucose 103 H (74-99) mg/dL POC Glucose (mg/dL) 106 H (75-99) mg/dL Magnesium 2.4 H (1.6-2.3) mg/dL Total Protein 5.8 L (6.3-8.2) g/dL Albumin 3.4 L (3.5-5.0) g/dL - Imaging and Cardiology Chest x-ray: report reviewed, image reviewed Assessment and Plan (1) Postoperative atrial fibrillation Current Visit: Yes Status: Acute Code(s): I97.89 - OTH POSTPROC COMP AND DISORDERS OF THE CIRC SYS, NEC; I48.91 - UNSPECIFIED ATRIAL FIBRILLATION SNOMED Code(s): 86265317 (2) Family history of coronary artery disease Current Visit: Yes Status: Chronic Code(s): Z82.49 - FAMILY HX OF ISCHEM HEART DIS AND OTH DIS OF THE CIRC SYS SNOMED Code(s): 585510247 (3) Hyperlipidemia Current Visit: Yes Status: Chronic Code(s): E78.5 - HYPERLIPIDEMIA, UNSPECIFIED SNOMED Code(s): 38363686 (4) Obesity (BMI 30.0-34.9) Current Visit: Yes Status: Chronic Code(s): E66.9 - OBESITY, UNSPECIFIED SNOMED Code(s): 452551705140919 (5) Severe mitral valve regurgitation Current Visit: Yes Status: Chronic Code(s): I34.0 - NONRHEUMATIC MITRAL ( VALVE) INSUFFICIENCY SNOMED Code(s): 95800063 (6) Tobacco dependence in remission Current Visit: No Status: Resolved Code(s): F17.201 - NICOTINE DEPENDENCE, UNSPECIFIED, IN REMISSION SNOMED Code(s): 690117069 Plan: 1. Continue aspirin, statin, beta sophie therapy. Will increase beta sophie as tolerated. 2. Encourage incentive spirometry 10 times every hour while awake. 3. Encourage continued smoking cessation. 4. Continue Lasix 20 mg by mouth daily 2 doses starting tomorrow 10/06/2018, then discontinue. 5. Increase activity, ambulate as tolerated. PT/OT/cardiac rehab following. 6. Bronchodilator management per pulmonology. 7. Continue pain control with current medication regimen. Discontinue [place], start acetaminophen 650 mg by mouth every 6 hours when necessary pain. 8. Insulin management per primary care service. 9. GI prophylaxis with Protonix, DVT prophylaxis with subcu heparin, SCDs. 10. Will monitor daily labs and x-rays. Electrolyte replacement per protocol. 11. Start amiodarone 150 mg IV bolus 1 now followed by amiodarone drip per protocol for atrial fibrillation prophylaxis. 12. Discharge planning in progress. Anticipate discharge to home with home care in the next 24-48 hours. 13. More recommendations to follow based on patient's clinical course. Time with Patient: Greater than 30
[2018-10-05 11:56] LABS: Glucose,Whole Blood 108 mg/dL (75-99)
[2018-10-05] MEDS ORDERED: POTASSIUM CHLORIDE ER 20 MEQ TAB.ER PO SCH (13:00)
--- NOTE | 2018-10-05 13:32 | PN ---
PROGRESS NOTE The patient is seen today, October 05, 2018, in followup on the selective care unit. He is awake and alert, in no acute distress. He did go into atrial fibrillation earlier this morning and has been initiated on amiodarone. He is maintaining good O2 saturations in the 90s on room air. He denies any significant chest discomfort. He is status post mitral valve repair. PHYSICAL EXAMINATION: On physical exam, he is a awake and alert, in no acute distress. Vital signs are stable. Head is normocephalic. Sclerae anicteric. His neck is supple. Trachea midline. Heart hugger in place. His lungs have faint crackles in the posterior bases. His heart is currently irregularly irregular S1, S2. His abdomen is soft, nontender. Bowel sounds are present. There is no significant peripheral edema. No clubbing. No cyanosis. Peripheral pulses are intact. INVESTIGATIONS: Reviewed. MEDICATIONS: Reviewed. IMPRESSION: 1. Status post mitral valve repair. 2. Atrial fibrillation with rapid ventricular response. PLAN: The patient was seen and evaluated by Dr. Worrell. Chest x-ray and labs were reviewed. He is currently stable from the pulmonary standpoint, maintaining good O2 saturations in the 90s on room air. He is again educated regarding the importance of the increased use of the incentive spirometer and cough and deep breathing exercises. PT services are aware of the atrial fibrillation. Amiodarone has been initiated. We will continue to follow and make further recommendations based on his clinical status. I, the cosigning physician, performed a history and physical examination on the patient. Lungs sounds with faint crackles in the posterior bases. Maintain O2 saturations in the 90s on room air. I discussed the assessment and plan of care with my nurse practitioner, Jessica Chung. I attest to the above note as dictated by her. MMODL / IJN: [id number] /
[2018-10-05 18:46] LABS: Glucose,Whole Blood 109 mg/dL (75-99)
[2018-10-05] MEDS: AMIODARONE 450 MG in DEXTROSE 5% IN WATER 250 ML IV SCH ×4 (19:27→19:30)
--- NOTE | 2018-10-05 20:05 | PN ---
PROGRESS NOTE DATE OF SERVICE: October 05, 2018. PRESENTING COMPLAINT: Tired. INTERVAL HISTORY: Patient is status post mitral valve replacement, slightly short of breath. Did go into atrial fibrillation. Was put on IV amiodarone. Breathing is much improved. Did eat some breakfast. Sitting up in a chair. REVIEW OF SYSTEMS: Done for constitutional, cardiovascular, GI, pulmonary and relevant findings as above. CURRENT MEDICATIONS: Reviewed that include IV amiodarone. PHYSICAL EXAMINATION: VITAL SIGNS: Temperature 97.4, pulse 121, respiratory 18, blood pressure 94/58, pulse ox 93 percent on room air. GENERAL APPEARANCE: Sitting up in a chair, awake. EYES: Pupils equal. Conjunctivae pale. NECK: JVD unable to assess. Mass not palpable. RESPIRATORY: Effort increased. LUNGS: Decreased breath sounds. CARDIOVASCULAR: Heart sounds irregular. No edema. ABDOMEN: Soft, nontender. Liver and spleen not palpable. PSYCHIATRY: Alert and oriented x3. Mood and affect normal. INVESTIGATIONS: White count 5.4, hemoglobin 10.3, potassium 3.7, BUN 23, creatinine 0.77. ASSESSMENT: 1. Severe mitral regurgitation followed by repair. 2. New onset atrial fibrillation with rapid ventricular rate. 3. Left atrial appendage excision. 4. Acute hypoxic respiratory failure from atelectasis and pleural effusion, resolved. 5. Hyperlipidemia. 6. Hypoalbuminemia, acute phase reactant. 7. Acute postoperative blood loss anemia expected from surgery. PLAN: Patient is started on IV amiodarone. Also on p.o. Lasix 20 mg, beta sophie, getting bronchodilators. Care was discussed with the patient and . Follow. MMODL / IJN: [id number] /
[2018-10-05 20:46] LABS: Glucose,Whole Blood 118 mg/dL (75-99)
[2018-10-05] MEDS: SENNOSIDES-DOCUSATE SODIUM 1 EACH TAB PO SCH (21:10)
[2018-10-06] MEDS: AMIODARONE 450 MG in DEXTROSE 5% IN WATER 250 ML IV SCH ×2 (02:09)
[2018-10-06] MEDS: KETOROLAC 30 MG/ML 1 ML VIAL IVP SCH ×2 (05:11→11:31)
[2018-10-06 05:39] LABS: Glucose,Whole Blood 110 mg/dL (75-99)
[2018-10-06] MEDS: INSULIN ASPART 100 UNIT/ML 1 ML 10 ML VIAL SQ SCH ×2 (06:06→11:31)
--- NOTE | 2018-10-06 06:55 | XR ---
EXAMINATION TYPE: XR chest 1V portable DATE OF EXAM: 10/06/2018 HISTORY: Postoperative MVR. REFERENCE: Previous study dated 10/05/2018. FINDINGS: There has been a midline sternotomy. The heart is mildly enlarged. There is bibasilar airsp brandon disease which is worsening on the right. There are bilateral effusions. IMPRESSION: NO SIGNIFICANT INTERVAL CHANGE IN THE APPEARANCE OF THE CHEST.
[2018-10-06] MEDS: PANTOPRAZOLE 40 MG TABLET PO SCH (07:02)
[2018-10-06] MEDS: IPRATROPIUM-ALBUTEROL 3 ML NEB INHALATION SCH ×2 (07:14→11:01)
[2018-10-06 07:40] LABS: Basophils % (A) 0 %; Eosinophils # (A) 0.5 k/uL (0-0.7); Eosinophils % (A) 9 %; HCT 31.8 % (39.0-53.0); HGB 10.4 gm/dL (13.0-17.5); Lymphocytes # (A) 0.9 k/uL (1.0-4.8); Lymphocytes % (A) 17 %; MCH 31.8 pg (25.0-35.0); MCHC 32.8 g/dL (31.0-37.0); MCV 96.9 fL (80.0-100.0); Mean Platelet Volume 6.8; Monocytes # (A) 0.4 k/uL (0-1.0); Monocytes % (A) 8 %; Neutrophils # (A) 3.3 k/uL (1.3-7.7); Neutrophils % (A) 63 %; Platelet Count 221 k/uL (150-450); RBC 3.28 m/uL (4.30-5.90); RDW 13.4 % (11.5-15.5); WBC 5.2 k/uL (3.8-10.6)
[2018-10-06 08:17] LABS: ALT 65 U/L (21-72); AST 43 U/L (17-59); Albumin 3.3 g/dL (3.5-5.0); Alkaline Phosphatase 52 U/L (38-126); Anion Gap 9 mmol/L; Blood Urea Nitrogen 20 mg/dL (9-20); Calcium 8.8 mg/dL (8.4-10.2); Carbon Dioxide 26 mmol/L (22-30); Chloride 106 mmol/L (98-107); Glucose 101 mg/dL (74-99); Magnesium 2.4 mg/dL (1.6-2.3); Potassium 3.9 mmol/L (3.5-5.1); Sodium 141 mmol/L (137-145); Total Protein 5.9 g/dL (6.3-8.2)
[2018-10-06] MEDS: ASPIRIN 325 MG TAB PO SCH (08:34)
[2018-10-06] MEDS: ATORVASTATIN 40 MG TAB PO SCH (08:34)
[2018-10-06] MEDS: METOPROLOL TARTRATE 25 MG TAB PO SCH (08:34)
[2018-10-06] MEDS: HEPARIN SODIUM,PORCINE 5,000 UNIT/ML 1 ML VIAL SQ SCH (08:34)
[2018-10-06] MEDS ORDERED: POTASSIUM CHLORIDE ER 20 MEQ TAB.ER PO STA (08:54)
[2018-10-06 08:55] VITALS: RESP 18
[2018-10-06] MEDS ORDERED: FUROSEMIDE 20 MG TAB PO SCH (09:00)
[2018-10-06] MEDS ORDERED: AMIODARONE 200 MG TAB PO SCH (09:00)
--- NOTE | 2018-10-06 10:05 | P.PN ---
Subjective Progress Note Date: 10/06/18 Principal diagnosis: Status post mitral valve repair postoperative day #3 This is a 58-year-old gentleman who follows with Dr. Oswald as his primary care physician. He has a history of hyperlipidemia and chronic and ongoing tobacco dependence at 1 pack per day. He was found to have a systolic ejection murmur on his screening exam and was referred for two-dimensional echocardiogram. He had one back on 05/20/2018 that showed evidence of preserved left ventricular systolic function, severe mitral valve regurgitation from posterior leaflet prolapse/flail. The patient had been asymptomatic at that time. No dyspnea on exertion, palpitations or chest pain. FELIZ August 15 2018 confirmed severe mitral regurgitation secondary to the prolapsing posterior mitral leaflet. Preserved left ventricular systolic function of 55-60 %. Cardiac catheterization revealed nonobstructive coronary artery disease. He was admitted early this morning for an elective mitral valve repair which was performed by Dr. Ward. He is seen today in the ICU immediately postoperatively. He remains intubated and on the mechanical ventilator to SIMV mode of 12, volume 550, FiO2 100% and a PEEP of 5. Is currently on propofol at 40 mcg/kg/m. Initially on norepinephrine currently on hold. Systolic blood pressure in the 110's with a diastolic pressure in the 60s. Mean arterial pressure greater than 60. PA pressure 34/12. Cardiac output 6. Cardiac index 3.1. Split mediastinal and right pleural chest tubes are in place. Chest x- ray was reviewed with Dr. Worrell. Currently no significant abnormalities. Right IJ [place] catheter in place. Temporary pacemaker wires in place. Glucose 131. Other labs pending. 2 units of packed red blood cells are pending. 2 units of platelets available. Patient was reevaluated today on 10/02/2018, he was extubated shortly after he arrived to the ICU. Tolerated the extubation well, patient is doing quite well today. Relatively asymptomatic, in no distress, cooperative, denies any specific complaints, using his incentive spirometry. Chest x-ray is reassuring , minimal atelectasis at the bases. No evidence of congestive heart failure. Labs were relatively unremarkable and all were reviewed. Patient was reevaluated today on 10/03/2018. Had lots of called on this patient last night, his O2 saturation was quite low even on high flow nasal cannula. Patient was tried on BiPAP, and he did not tolerate. Hence patient was placed back on high flow nasal cannula, in the meantime he was given more incentive spirometry, bronchodilators, and he received earlier a dose of Lasix. Feeling much better today, breathing a lot easier, and he is down to 8 L high flow nasal cannula, and he is saturating in the mid 90s. Patient felt much better once he was able to clear some of his endotracheal secretions chest x-ray was reviewed, minimal atelectasis at the bases, no clear-cut infiltrate, and no evidence of pulmonary edema. His CBC showed no evidence of leukocytosis. His hemoglobin is 10.5 elective lites are normal renal profile is normal. On 10/04/2018 patient seen in follow-up on selective care unit. Room air pulse ox was 98%, patient's, comfortable, no distress, afebrile. His chest x-ray showed small basilar pleural effusions, with associated atelectasis. he has received Lasix per CT surgery, diuresing. All chest tubes, Cortis, arterial line, [place] catheter and epicardial wires have been removed. Patient has been ambulating, tolerating activity well, his incentive spirometer effort is over [id number]. On sounds are clear with diminished breath sounds at the bases, with minimal crackles. On 10/06/2018 patient seen in follow-up on selective care unit, room air pulse ox is 94%, vital signs are stable, afebrile, today's chest x-ray has been reviewed with Dr. Joseph, shows able findings, with bibasilar airspace disease likely related to atelectasis, and small bilateral pleural effusions. Today's labs have been noted. he is tolerating ambulation, no specific complaints, no shortness of breath or chest pain. Patient is being discharged home today, we' ll need follow-up in the office with Dr. Joseph in one week Objective - Vital Signs Vital signs: Vital Signs Temp 98.2 F 10/06/18 08:00 Pulse 83 10/06/18 08:00 Resp 18 10/06/18 08:00 BP 120/72 10/06/18 08:00 Pulse Ox 94 L 10/06/18 08:00 Intake & Output 10/05/18 10/06/18 10/06/18 18:59 06:59 18:59 Intake Total 240 240 Output Total 1225 Balance 240 -1225 240 Weight 92 kg Intake: Oral 240 240 Output: Urine 1225 Other: Voiding Method Urinal Toilet Toilet # Voids 2 3 ABP, PAP, CO, CI - Last Documented Arterial Blood Pressure 113/65 Pulmonary Artery Pressure 32/13 Cardiac Output 5.6 Cardiac Index 2.6 - Exam GENERAL EXAM: Alert, pleasant, 58-year-old white male, comfortable in no apparent distress. HEAD: Normocephalic/atraumatic. EYES: Normal reaction of pupils, equal size. Conjunctiva pink, sclera white. NOSE: Clear with pink turbinates. THROAT: No erythema or exudates. NECK: No masses, no JVD, no thyroid enlargement, no adenopathy. CHEST: No chest wall deformity. Symmetrical expansion. Sternal incision is clean dry and intact, chest tube sites are clean dry and intact LUNGS: Equal air entry with diminished breath sounds at the bases, with minimal crackles CVS: Regular rate and rhythm, normal S1 and S2, no gallops, no murmurs, no rubs ABDOMEN: Soft, nontender. No hepatosplenomegaly, normal bowel sounds, no guarding or rigidity. EXTREMITIES: No clubbing, no edema, no cyanosis, 2+ pulses and upper and lower extremities. MUSCULOSKELETAL: Muscle strength and tone normal. SPINE: No scoliosis or deformity SKIN: No rashes CENTRAL NERVOUS SYSTEM: Alert and oriented -3. No focal deficits, tone is normal in all 4 extremities. PSYCHIATRIC: Alert and oriented -3. Appropriate affect. Intact judgment and insight. - Labs CBC & Chem 7: 10/06/18 06:13 10/06/18 06:13 Labs: Abnormal Lab Results - Last 24 Hours (Table) 10/05/18 10/05/18 10/05/18 Range/Units 11:36 16:02 20:45 RBC (4.30-5.90) m/uL Hgb (13.0-17.5) gm/dL Hct (39.0-53.0) % Lymphocytes # (1.0-4.8) k/uL Glucose (74-99) mg/dL POC Glucose (mg/dL) 108 H 109 H 118 H (75-99) mg/dL Magnesium (1.6-2.3) mg/dL Total Protein (6.3-8.2) g/dL Albumin (3.5-5.0) g/dL 10/06/18 10/06/18 10/06/18 Range/Units 05:38 06:13 06:13 RBC 3.28 L (4.30-5.90) m/uL Hgb 10.4 L (13.0-17.5) gm/dL Hct 31.8 L (39.0-53.0) % Lymphocytes # 0.9 L (1.0-4.8) k/uL Glucose 101 H (74-99) mg/dL POC Glucose (mg/dL) 110 H (75-99) mg/dL Magnesium 2.4 H (1.6-2.3) mg/dL Total Protein 5.9 L (6.3-8.2) g/dL Albumin 3.3 L (3.5-5.0) g/dL Assessment and Plan Plan: #1 Severe mitral regurgitation secondary to prolapsing of the P2 component of the posterior mitral leaflet. Status post mitral valve repair, postoperative day 5 #2. Patient was extubated within an hour after arrival to the ICU, and tolerated the extubation well. #2 Nonobstructive coronary artery disease. #3 Hyperlipidemia. #4 Chronic and ongoing tobacco dependence. #5 postoperative bibasilar atelectasis, expected findings after such surgery. Plan: Today's chest x-ray has been reviewed with Dr. Joseph, shows stable findings, small bilateral pleural effusions, and adjacent atelectasis. Patient is on room air, tolerating ambulation, all chest tubes and lines have been discontinued, from pulmonary perspective patient is stable for discharge home today, follow up with Dr. Joseph in the office in one week. I performed a history & physical examination of the patient and discussed their management with my nurse practitioner, Jada Curiel. I reviewed the nurse practitioner's note and agree with the documented findings and plan of care. Lung sounds are positive for minimal crackles at the bases. The findings and the impression was discussed with the patient. I attest to the documentation by the nurse practitioner. Time with Patient: Less than 30
[2018-10-06 11:16] LABS: Glucose,Whole Blood 97 mg/dL (75-99)
--- NOTE | 2018-10-06 11:19 | P.PN ---
Subjective Progress Note Date: 10/06/18 Principal diagnosis: Status post mitral valve repair This is a pleasant 58-year-old gentleman who was diagnosed recently with severe symptomatic mitral regurgitation. He underwent successful mitral valve repair with annuloplasty. On follow-up with the patient today, October 062018, the patient overall is feeling better. He did have an episode of A. fib yesterday converted to normal sinus mechanism on amiodarone IV. Currently he is on amiodarone by mouth. From the cardiac standpoint of view, he can be discharged home. Objective - Vital Signs Vital signs: Vital Signs Temp 98.2 F 10/06/18 08:00 Pulse 83 10/06/18 08:00 Resp 18 10/06/18 08:00 BP 120/72 10/06/18 08:00 Pulse Ox 94 L 10/06/18 08:00 Intake & Output 10/05/18 10/06/18 10/06/18 18:59 06:59 18:59 Intake Total 240 240 Output Total 1225 Balance 240 -1225 240 Weight 92 kg Intake: Oral 240 240 Output: Urine 1225 Other: Voiding Method Urinal Toilet Toilet # Voids 2 3 ABP, PAP, CO, CI - Last Documented Arterial Blood Pressure 113/65 Pulmonary Artery Pressure 32/13 Cardiac Output 5.6 Cardiac Index 2.6 - Constitutional General appearance: Present: no acute distress - Respiratory Respiratory: bilateral: CTA - Cardiovascular Rhythm: regular Heart sounds: normal: S1, S2 - Labs CBC & Chem 7: 10/06/18 06:13 10/06/18 06:13 Labs: Abnormal Lab Results - Last 24 Hours (Table) 10/05/18 10/05/18 10/05/18 Range/Units 11:36 16:02 20:45 RBC (4.30-5.90) m/uL Hgb (13.0-17.5) gm/dL Hct (39.0-53.0) % Lymphocytes # (1.0-4.8) k/uL Glucose (74-99) mg/dL POC Glucose (mg/dL) 108 H 109 H 118 H (75-99) mg/dL Magnesium (1.6-2.3) mg/dL Total Protein (6.3-8.2) g/dL Albumin (3.5-5.0) g/dL 10/06/18 10/06/18 10/06/18 Range/Units 05:38 06:13 06:13 RBC 3.28 L (4.30-5.90) m/uL Hgb 10.4 L (13.0-17.5) gm/dL Hct 31.8 L (39.0-53.0) % Lymphocytes # 0.9 L (1.0-4.8) k/uL Glucose 101 H (74-99) mg/dL POC Glucose (mg/dL) 110 H (75-99) mg/dL Magnesium 2.4 H (1.6-2.3) mg/dL Total Protein 5.9 L (6.3-8.2) g/dL Albumin 3.3 L (3.5-5.0) g/dL Assessment and Plan Assessment: Assessment #1 severe symptomatic mitral regurgitation #2 status post mitral valve repair with annuloplasty #3 mild nonobstructive coronary artery disease Plan #1 continue the current medical regimen including aspirin, metoprolol, and statin as well as amiodarone by mouth #2 from the cardiac standpoint, the patient can be discharged home
[2018-10-06 11:40] VITALS: BP 122/75; PULSE 75; TEMP 98.9
--- NOTE | 2018-10-06 12:06 | P.DS ---
Providers Date of admission: 10/01/18 05:26 Expected date of discharge: 10/06/18 Attending physician: Ochoa Ward Consults: 10/01/18 13:11 Consult Physician Routine Consulting Provider: Davy Worrell Consult Reason/Comments: Social Insurance Analyst Consult: post cardiac surgery Do you want consulting provider notified?: Yes Consult Physician Routine Consulting Provider: Aris Blum Consult Reason/Comments: Margret colvin patient Do you want consulting provider notified?: Yes Consult Physician Routine Consulting Provider: Clemente Germain Consult Reason/Comments: Pre Owned Sales Consultant Consult: post cardiac surgery Do you want consulting provider notified?: Yes Primary care physician: Jason Oswald - Discharge Diagnosis(es) (1) Postoperative atrial fibrillation Current Visit: Yes Status: Acute (2) Family history of coronary artery disease Current Visit: Yes Status: Chronic (3) Hyperlipidemia Current Visit: Yes Status: Chronic (4) Obesity (BMI 30.0-34.9) Current Visit: Yes Status: Chronic (5) Severe mitral valve regurgitation Current Visit: Yes Status: Chronic (6) Tobacco dependence in remission Current Visit: No Status: Resolved Hospital Course: FINAL DIAGNOSIS: 1. Severe mitral valve regurgitation from P2 prolapse 2. Hyperlipidemia 3. Remote history of tobacco dependence with a preoperative FEV1 of 92% of predicted 4. Family history of premature coronary artery disease with his father at age 52 from coronary artery disease 5. Obesity 6. Postoperative acute blood loss anemia and expected outcome of surgery 7. Postoperative paroxysmal atrial fibrillation and unexpected outcome of surgery PRINCIPAL PROCEDURE: 1. Complex mitral valve repair with triangular resection of P2 and posterior annuloplasty using a #30 AnnuloFlex posterior ring. 2. Exclusion of left atrial appendage using a #40 mm Atriclip. 3. Intraoperative transesophageal echocardiogram and epi-aortic ultrasound. HISTORY OF PRESENT ILLNESS: This is a 58-year-old gentleman who is followed by Dr. Jason Oswald outpatient basis. The patient has a past medical history significant for hyperlipidemia, remote tobacco abuse, family history of premature coronary artery disease with his father at age 52 from coronary artery disease and obesity. Recently on a routine physical exam completed by his primary care physician he was noted to have a systolic ejection murmur. For further evaluation the patient underwent a 2-D echocardiogram on 05/19/2018 which showed evidence of preserved systolic function, severe mitral valve regurgitation from the posterior leaflet prolapse/ flail. The patient denied any complaints of shortness of breath on exertion, syncope, palpitations or chest pain. For further evaluation the patient underwent a transesophageal echocardiogram on 08/15/2018 which showed his left ventricular dimensions and systolic function to be within normal limits with an ejection fraction of 55-60%, prolapsing of the P2 component of the posterior mitral valve leaflet with evidence of severe mitral valve regurgitation with an anteriorly directed jet and [place] mitral valve regurgitation. Also on 2017 the patient underwent elective heart catheterization which demonstrated mild nonobstructive coronary artery disease involving the left anterior descending coronary artery. The heart catheterization also demonstrated 3-4+ mitral valve regurgitation. Due to the patient's systolic ejection murmur, transesophageal echocardiogram and cardiac catheterization results a consult was placed to Dr. Ochoa Ward from cardiothoracic surgery. Dr. Ward met with the patient and his and discussed undergoing an elective mitral valve repair/replacement with risks and benefits reviewed. The patient wished to proceed with an elective mitral valve repair/replacement surgery. HOSPITAL COURSE: The patient was admitted into the hospital and after obtaining consent was taken to the operating room where Dr. Ochoa Ward performed a complex mitral valve repair with triangular resection of P2 and posterior annuloplasty using a #30 AnnuloFlex posterior ring, exclusion of the left atrial appendage using a #40 mm Atriclip, and an intraoperative transesophageal echocardiogram and epi-aortic ultrasound. Upon completion of surgery the patient was transferred to the cardiovascular intensive care unit where he was recovered, monitored hemodynamically and where he progressed to cardiac rehabilitation phase 1. He was extubated, all lines, tubes and drips were discontinued when appropriate and he was transferred to [address] [place] [address] cardiac stepdown unit for further monitoring and rehabilitation. His oxygen was titrated off, he continued to work with physical and occupational therapy, is tolerating oral diet, his pain was controlled and he was ready to be discharged to home with [facility] care on postoperative day #5. He has received written and verbal instruction regarding his medications, activity restrictions , signs and symptoms requiring physician notification and his follow-up appointments. COMPLICATIONS: His postoperative period was complicated by some paroxysmal atrial fibrillation which was treated accordingly. CONSULTATIONS: 1. Dr. Germain for cardiology management. 2. Dr. Worrell for pulmonary and ventilator management. 3. Dr. Blum for medical management. DISCHARGE INSTRUCTIONS: 1. No driving for 4 weeks, or until physician gives their ok. 2. The patient should sleep in their own bed, no medical bed needed. 3. Stairs are not an issue. If the bedroom is upstairs, it is advised that the patient go up at night and down in the morning for the first week. Go slowly, using handrail and take 1 step at a time. 4. SHASHANK hose are to be worn for 30 days or until physician discontinues. 5. Heart hugger is to be worn 100% of the time until physician discontinues.( except when showering) 6. No lifting, pushing, or pulling more than 10 pounds for 12 weeks. The physician will advise of any restriction changes. 7. The patient is expected to continue the prescribed walking program. 8. Continue pain control per as needed orders. 9. Continue with incentive spirometry and splinting/heart hugger until otherwise directed by the physician. 10. Must shower daily using liquid antibacterial soap and a separate white washcloth for each individual incision. 11. Routine sternal incision care, no ointments, lotions or powders on the incisions. 12. Please notify surgeon/nurse practitioner for temperature greater than 101F or purulent drainage from incisions 13. Prescriptions for first 30 days given per cardiac surgery service. After 30 days, all prescription refills obtained through cardiology/primary care physician. 14. A red arm and has been placed on this patient it should be worn for 30 days post surgery and will be removed by the cardiothoracic surgeons. If an ER visit is necessary, please make sure the number on the red arm band is called. HOME HEALTH SERVICES TO PROVIDE: RN SKILLED HOME CARE SERVICES FOR POST-OP SURGICAL PATIENTS WITH THE FOLLOWING: Coronary Artery Bypass Surgery (CABG), Mitral Valve Replacement/ Repair ( MVR), Aortic Valve Replacement/Repair (AVR) RN TO CONTINUE EDUCATION FROM ``ROAD TO A HEALTH HEART PATIENT EDUCATION MANUAL" (GIVEN TO PATIENT IN THE HOSPITAL) MEDICATION RECONCILIATION WITH EDUCATION NEEDED ON FIRST HOME VISIT EMPHASIZE IMPORTANCE OF WEARING BREAST SUPPORT/HEART HUGGER ENCOURAGE USE OF INCENTIVE SPIROMETER 10 X EVERY HOUR WHILE AWAKE ENCOURAGE UTILIZATION OF LOWER EXTREMITY COMPRESSION STOCKINGS/SHASHANK HOSE and ELEVATE LEGS ABOVE LEVEL OF HEART WHILE AT REST. ENCOURAGE AMBULATION 3-5x/day INCREASING TOLERATES, WHILE AVOID EXTREMES IN TEMPERATURE FREQUENCY: RN TO OPEN THE PATIENT WITHIN 24 HOURS OF DISCHARGE FROM THE HOSPITAL WITH TELEHEALTH INSTALLED AT [facility] [place], RN TO VISIT 2-3 X A WEEK FOR 4 WEEKS ESTABLISHED BY PATIENT NEEDS. LABORATORY: CBC, CMP TO BE DRAWN ON THE THIRD DAY HOME, Sunday10/08/2017 (RAN STAT ) FAX RESULTS TO [phone]. TELEHEALTH PARAMETERS: WEIGHT: NOTIFY MD OF WEIGHT GAIN OF 2 LBS IN 24 HOURS OR 5 LBS IN ONE WEEK HR: NOTIFY MD OF HR <55 BPM OR HR>100 BPM BP: NOTIFY MD IF BP <90/55 OR BP>140/100 O2 SAT: NOTIFY MD IF PO2<93% ON ROOM AIR SEND TELEHEALTH REPORT TO [employer] ARCHITECT AND CARDIOVASCULAR SURGEON THE FIRST WEEK OF CARE AND THEN BI-WEEKLY. PLEASE ADDITIONALLY COMMUNICATE ANY ABNORMALS AND NEW FINDINGS TO THE SURGEONS OFFICE. The patient will be discharged home on amiodarone 400 mg by mouth twice a day 1 week, then amiodarone 200 mg by mouth twice a day 1 week, then amiodarone 200 mg by mouth daily 1 week. Plan - Discharge Summary Discharge Rx Participant: Yes New Discharge Prescriptions: New Acetaminophen Tab [Tylenol] 650 mg PO Q6HR PRN tab PRN Reason: Pain Scale 6 To 10 Aspirin 325 mg PO DAILY tab Atorvastatin [Lipitor] 40 mg PO DAILY #30 tab Metoprolol Tartrate [Lopressor] 25 mg PO BID #60 tab Pantoprazole [Protonix] 40 mg PO AC-BRKFST #30 tablet.dr Seay-Docusate Sodium [Senokot-S] 2 each PO HS #14 tab Amiodarone [Cordarone] 400 mg PO BID 50 Days tab Discontinued Atorvastatin [Lipitor] 20 mg PO DAILY Mupirocin 2% Oint [Bactroban 2% Oint] 1 applic NASAL BID Discharge Medication List Acetaminophen Tab [Tylenol] 650 mg PO Q6HR PRN tab 10/05/18 [Rx] Aspirin 325 mg PO DAILY tab 10/05/18 [Rx] Atorvastatin [Lipitor] 40 mg PO DAILY #30 tab 10/05/18 [Rx] Metoprolol Tartrate [Lopressor] 25 mg PO BID #60 tab 10/05/18 [Rx] Pantoprazole [Protonix] 40 mg PO AC-BRKFST #30 tablet. 10/05/18 [Rx] Sennosides-Docusate Sodium [Senokot-S] 2 each PO HS #14 tab 10/05/18 [Rx] Amiodarone [Cordarone] 400 mg PO BID 50 Days tab 10/06/18 [Rx] Follow up Appointment(s)/Referral(s): Davy Worrell MD [STAFF PHYSICIAN] - 10/17/18 1:45 pm Clemente Germain MD [STAFF PHYSICIAN] - 10/14/18 4:30 pm Ochoa Ward MD [STAFF PHYSICIAN] - 10/25/18 10:30 am Jason Oswald MD [Primary Care Provider] - 10/23/18 10:00 am [facility], [NON-STAFF] - 1-2 Days Ambulatory/Diagnostic Orders: Complete Blood Count w/diff [LAB.AMB] Time Frame: 10/08/18, Facility: [facility], Location: Laboratory [facility] Comprehensive Metabolic Panel [LAB.AMB] Time Frame: 10/08/18, Facility: [facility], Location: Laboratory [facility] Activity/Diet/Wound Care/Special Instructions: Pt would like discharge RX when discharged. DISCHARGE INSTRUCTIONS: 1. No driving for 4 weeks, or until physician gives their ok. 2. The patient should sleep in their own bed, no medical bed needed. 3. Stairs are not an issue. If the bedroom is upstairs, it is advised that the patient go up at night and down in the morning for the first week. Go slowly, using handrail and take 1 step at a time. 4. SHASHANK hose are to be worn for 30 days or until physician discontinues. 5. Heart hugger is to be worn 100% of the time until physician discontinues.( except when showering) 6. No lifting, pushing, or pulling more than 10 pounds for 12 weeks. The physician will advise of any restriction changes. 7. The patient is expected to continue the prescribed walking program. 8. Continue pain control per as needed orders. 9. Continue with incentive spirometry and splinting/heart hugger until otherwise directed by the physician. 10. Must shower daily using liquid antibacterial soap and a separate white washcloth for each individual incision. 11. Routine sternal incision care. No powders, lotions, ointments on incisions. 12. Please call surgeon/POLICE INVESTIGATOR for temp greater than 101 F or purulent drainage from incisions. 13. Narcotic medications were discussed with the patient, including the potential for misuse, addiction, and abuse. Opiod Start Talking form was reviewed with the patient. 14. All prescriptions given by surgeon for 30 days. Refills need to be filled through gauge and weigh machine operator/primary care physician. 15. A Red armband has been placed on the patient. It should be worn for 30 days post surgery and will be removed by the cardiac surgeons. If an ER visit is necessary, please make sure the number on the Red armband is called. HOME HEALTH SERVICES TO PROVIDE: RN SKILLED HOME CARE SERVICES FOR POST-OP SURGICAL PATIENTS WITH THE FOLLOWING: Coronary Artery Bypass Surgery (CABG), Mitral Valve Replacement/ Repair ( MVR), Aortic Valve Replacement/Repair (AVR) RN TO CONTINUE EDUCATION FROM ``ROAD TO A HEALTH HEART PATIENT EDUCATION MANUAL (GIVEN TO PATIENT IN THE HOSPITAL) MEDICATION RECONCILIATION WITH EDUCATION NEEDED ON FIRST HOME VISIT EMPHASIZE IMPORTANCE OF WEARING BREAST SUPPORT/HEART HUGGER ENCOURAGE USE OF INCENTIVE SPIROMETER 10 X EVERY HOUR WHILE AWAKE ENCOURAGE UTILIZATION OF LOWER EXTREMITY COMPRESSION STOCKINGS/SHASHANK HOSE and ELEVATE LEGS ABOVE LEVEL OF HEART WHILE AT REST. ENCOURAGE AMBULATION 3-5x/day INCREASING TOLERATES, WHILE AVOID EXTREMES IN TEMPERATURE FREQUENCY: RN TO OPEN THE PATIENT WITHIN 24 HOURS OF DISCHARGE FROM THE HOSPITAL WITH TELEHEALTH INSTALLED AT [facility] [place], RN TO VISIT 2-3 X A WEEK FOR 4 WEEKS ESTABLISHED BY PATIENT NEEDS. REMOVAL OF SUTURES: NURSING SERVICES TO REMOVE SUTURES TWO WEEKS POST SURGICAL DATE . If any questions regarding suture removal please call the office at . LABORATORY: CBC, CMP TO BE DRAWN ON THE THIRD DAY HOME, (RAN STAT) FAX RESULTS TO [phone]. For patients on Coumadin, PT/INR to be drawn on third day home, ran as STAT, and results faxed to [facility] at [phone] for Coumadin dosing. TELEHEALTH PARAMETERS: WEIGHT: NOTIFY MD OF WEIGHT GAIN OF 2 LBS IN 24 HOURS OR 5 LBS IN ONE WEEK HR: NOTIFY MD OF HR <55 BPM OR HR>100 BPM BP: NOTIFY MD IF BP <90/55 OR BP>140/100 O2 SAT: NOTIFY MD IF PO2<93% ON ROOM AIR SEND TELEHEALTH REPORT TO [employer] ARCHITECT AND CARDIOVASCULAR SURGEON THE FIRST WEEK OF CARE AND THEN BI-WEEKLY. PLEASE ADDITIONALLY COMMUNICATE ANY ABNORMALS AND NEW FINDINGS TO THE SURGEONS OFFICE. Discharge Disposition: HOME WITH HOME HEALTH SERVICES
--- NOTE | 2018-10-09 10:11 | CDI ---
Documentation Clarification Form Date: 10/09/2018 9:54:06 AM From: Tiara SpicerDe PazTIM tran, CCDS Admit Date: 10/01/2018 5:26:00 AM Patient Name: Marcello Solomon Visit Number: [id number] Discharge Date: 10/06/2018 2:00:00 PM ATTENTION: The Clinical Documentation Specialists (CDI) and [facility] Coding Staff appreciate your assistance in clarifying documentation. Please respond to the clarification below the line at the bottom and electronically sign. The CDI & [facility] Coding staff will review the response and follow-up if needed. Please note: Queries are made part of the Legal Health Record. If you have any questions, please contact the author of this message via ITS. Dr. Davy Worrell: Per the 10/02 medical management consult: "Acute hypoxic respiratory failure from possible significant atelectasis." Per the 10/03 pulmonary progress note: "postoperative bibasilar atelectasis, expected findings after such surgery." Patients Admitting Diagnosis: Severe mitral regurgitation from P2 prolapse. Post-Operative Diagnosis: Same Procedure performed: 1. Complex mitral valve repair with triangular resection of P2 and posterior annuloplasty using a #30 AnnuloFlex posterior ring. 2. Excision of the left atrial appendage using a 40 mm AtriClip. 3. Intraoperative transesophageal echocardiogram and epiaortic scanning. History/Risk Factors: Severe mitral regurgitation, Hyperlipidemia, Nonobstructive CAD, Smoker. Family history of premature CAD. Obesity. Clinical Indicators: Postop VS: R 24, BP 100/75, PO 83 15L nc, O2 decreased to 5Lnc with RR 24-27 on 10/02, PO 92. On 10/02, O2 increased to 8Lnc, PO 89. On 10/03, O2 15L highflow, RR 39. Treatment: O2 as above, IV antibiotics, IV MagSulfate, IV Kcl, IV Heparin, IV Insulin, IV MagSulfate, IV Nitro, IV Norepinephrine Bitartrate, IV Phenylephrine , IV Diprivan, IV Protamine Sulfate, IV Albumin, Albuterol INH, IV Amiodarone In order to accurately reflect this patients severity of illness, please clarify if the post-operative diagnosis of acute respiratory failure is: An expected post-procedural or post-surgical condition An unexpected post-procedural or post-surgical condition related to surgical care Other, please specify Unable to determine (Last Revision: December 2017) MTDD
--- NOTE | 2018-10-11 09:02 | P.PN ---
Progress Note - Text Progress Note Date: 10/11/18 patient had post operative atelectasi ,expected.He also had post operative hypoxic respiratory failure secondary to underlying copd and post operative atelectasis which was expected finding
== END 2018-10-06 14:00 | disposition home health service (06) | DRG 219 ==
LOC: 2ORMAIN 05:26 → 2SICU 13:02 → 3SCARD 10-04 00:14
PROVIDERS: ADMIT Surgery; ATTEND Surgery
PROC: 5A1221Z Performance of Cardiac Output, Continuous (ICD-10-PCS; principal; 2018-10-01 08:00)
PROC: 30253H0 (ICD-10-PCS; principal; 2018-10-01 08:00)
PROC: 02BG0ZZ Excision of Mitral Valve, Open Approach (ICD-10-PCS; principal; 2018-10-01 08:00)
PROC: 02UG0JZ Supplement Mitral Valve with Synthetic Substitute, Open Approach (ICD-10-PCS; principal; 2018-10-01 08:00)
DX: I34.0 Nonrheumatic mitral (valve) insufficiency (principal); J96.01 Acute respiratory failure with hypoxia; D62 Acute posthemorrhagic anemia; J90 Pleural effusion, not elsewhere classified; J98.11 Atelectasis; E78.5 Hyperlipidemia, unspecified; D72.829 Elevated white blood cell count, unspecified; E66.9 Obesity, unspecified; E88.09 Other disorders of plasma-protein metabolism, not elsewhere classified; I25.10 Atherosclerotic heart disease of native coronary artery without angina pectoris; I44.0 Atrioventricular block, first degree; I48.0 Paroxysmal atrial fibrillation; F17.201 Nicotine dependence, unspecified, in remission; Z68.30 Body mass index [BMI] 30.0-30.9, adult; Z82.49 Family history of ischemic heart disease and other diseases of the circulatory system; Z79.899 Other long term (current) drug therapy; Z79.82 Long term (current) use of aspirin
CPT/HCPCS: 71045; 71046; 80053; 82330; 82805; 83735; 84132; 85025; 85520; 85610; 85730; 86850; 86891; 86900; 86901; 86920; 88305; 94002; 94640; 94660; 94760

== ENCOUNTER → 2020-03-10 | Outpatient (CLI) | payer BC ==
--- NOTE | 2020-03-10 09:37 | CT ---
EXAMINATION TYPE: CT angio chest DATE OF EXAM: 03/10/2020 COMPARISON: Chest x-ray 10/17/2018 HISTORY: Thoracic aneurysm CT DLP: 737.7 mGycm Automated exposure control for dose reduction was used. CONTRAST: CTA scan of the thorax is performed without and with IV Contrast, patient injected with 100 mL of Iso indu 370, aneurysm protocol. MIP images are created and reviewed. 3D reconstructed images are created on an independent workstation and reviewed. FINDINGS: LUNGS: The lungs are grossly clear, there is no concerning parenchymal mass or nodule identified. T here is no pleural effusion or pneumothorax seen. The tracheobronchial tree is patent. AORTA: Aortic root is thought to measure approximately 5 cm on axial image 36, proximal ascending ao rta measures 4.7 cm on axial image 30. Proximal descending aorta measures 3.4 cm. At the level of the aortic hiatus the aorta measures approximately 2.9 cm. There is no evident dissection or embolus. MEDIASTINUM: There is satisfactory enhancement of the pulmonary artery and its branches, there is no CT evidence for pulmonary embolism. There are no greater than 1 cm hilar or mediastinal lymph nodes. No pericardial effusion is seen. OTHER: Patient is post median sternotomy and left atrial appendage clipping placement IMPRESSION: THORACIC AORTIC ANEURYSM.
== END | disposition home or self-care (01) ==
LOC: RADCTMAIN 06:45
PROVIDERS: ATTEND Internal Medicine Interventional Cardiology
DX: I71.2 Thoracic aortic aneurysm, without rupture (principal)
CPT/HCPCS: 71275; Q9967